=== PATIENT | female | born 1975 | race Caucasian/White ===

== ENCOUNTER 2019-04-02 09:17 | Outpatient (RCR) | payer SELFPAY ==
--- NOTE | 2019-06-19 11:40 | HP.PT.NRP ---
HP - Discharge Summary (1) - Patient Information SIRENA FLORES was seen in my office for initial evaluation on . The following Plan of Care was established for this patient: This patient was last seen in our office . Pertinent comments regarding their Physical therapy will appear below: self referred dry needling- d/c At this point I will be discontinuing this patient from physical therapy. I would be happy to see this patient again in the future if found appropriate by the physician. Thank you! RASHID AbreuT
== END 2019-04-02 19:00 | disposition home or self-care (01) ==
LOC: PT 09:17
PROVIDERS: Family Provider Family Medicine; PCP Family Medicine
DX: R69 Illness, unspecified (principal)

== ENCOUNTER → 2021-12-29 | Outpatient (CLI) | payer OTHER, SELFPAY ==
[2021-12-29 12:35] LABS: Absolute Lymphocyte Count 1.87 X10^3/uL (0.83-4.51); Basophil# 0.04 X10^3/uL; Basophil% 0.5 % (0-1); Eosinophil# 0.15 X10^3/uL; Eosinophils% 1.7 % (0-5); Hematocrit 42.2 % (37-47); Hemoglobin 13.5 g/dL (12.0-15.0); Lymphocyte # 1.87 X10^3/ul (0.83-4.51); Lymphocyte % 21.5 % (19-41); Mean Corpuscular Hgb 27.6 pg (27.0-32.0); Mean Corpuscular Volume 86.1 fL (81-99); Mean Platelet Vol. 9.6 fl (6.2-12.0); Monocyte# 0.64 X10^3/uL; Monocyte% 7.4 % (0-10); NRBC Flagged by Analyzer 0 % (0-5); Neutrophil # 5.95 X10^3/uL (2.7-7.7); Neutrophil % 68.3 % (47-70); Platelet Count 346 K/mm3 (150-450); White Blood Count 8.7 K/mm3 (4.4-11.0)
[2022-01-04 11:07] LABS: Alternaria tenuis <0.10 kU/L (Class 0); Ash, White <0.10 kU/L (Class 0); Aspergillus fumigatus <0.10 kU/L (Class 0); Bermuda Grass <0.10 kU/L (Class 0); Birch <0.10 kU/L (Class 0); Black Walnut <0.10 kU/L (Class 0); Cat Hair / Dander,Stand <0.10 kU/L (Class 0); Cedar, Mountain <0.10 kU/L (Class 0); Cladosporium herbarum <0.10 kU/L (Class 0); Cockroach, American <0.10 kU/L (Class 0); Cottonwood <0.10 kU/L (Class 0); D farinae Mite <0.10 kU/L (Class 0); D pteronyssinus <0.10 kU/L (Class 0); Dog Epithelia <0.10 kU/L (Class 0); Elm, American White <0.10 kU/L (Class 0); Immunoglobulin E 16 IU/mL (6-495); Maple/Box Elder <0.10 kU/L (Class 0); Mulberry, White <0.10 kU/L (Class 0); Oak, White <0.10 kU/L (Class 0); Pecan <0.10 kU/L (Class 0); Penicillium Notatum <0.10 kU/L (Class 0); Pigweed, Rough <0.10 kU/L (Class 0); Ragweed, Short/Common <0.10 kU/L (Class 0); Russian Thistle <0.10 kU/L (Class 0); Sheep Sorrel <0.10 kU/L (Class 0); Sycamore, American <0.10 kU/L (Class 0); Timothy Grass <0.10 kU/L (Class 0)
[2022-01-05 17:01] LABS: Mouse Urine <0.10 kU/L (Class 0)
== END | disposition home or self-care (01) ==
PROVIDERS: PCP Family Medicine; Referring Provider Internal Medicine Critical Care Medicine; Visit Provider Internal Medicine Critical Care Medicine
DX: J45.909 Unspecified asthma, uncomplicated (principal)
CPT/HCPCS: 36415; 82785; 85025; 86003

== ENCOUNTER → 2022-01-15 | Outpatient (CLI) | payer OTHER, SELFPAY ==
--- NOTE | 2022-01-16 08:01 | PFT ---
INTRODUCTION: The patient is a 46-year-old female that presents for pulmonary function studies secondary to a diagnosis of asthma. Respiratory therapy reported good patient effort. Bronchodilators were used during testing. INTERPRETATION: Forced expiration spirometry demonstrates no evidence of a large airways obstructive ventilatory defect. There was a significant response to aerosolized bronchodilators noted. Spirograms are of good quality and plateau normally. Body plethysmography was performed and revealed a decreased TLC to 4.98 L, 78% of predicted, indicative of a mild restrictive ventilatory impairment. Diffusing capacity by single breath CO is mildly reduced as well. IMPRESSION: Stigmata of small airways disease with significant bronchodilator response, along with mild restrictive ventilatory impairment with symmetric reduction in diffusing capacity.
== END | disposition home or self-care (01) ==
LOC: PSN 09:28
PROVIDERS: PCP Family Medicine; Referring Provider Internal Medicine Critical Care Medicine; Visit Provider Internal Medicine Critical Care Medicine
DX: J45.909 Unspecified asthma, uncomplicated (principal)
CPT/HCPCS: 94060; 94726; 94729

== ENCOUNTER → 2022-01-26 | Outpatient (CLI) | payer OTHER, SELFPAY ==
[2022-01-26 11:48] VITALS: PULSE 101; PULSE 107; PULSE 108; PULSE 110; PULSE 77; PULSE 82; O2SAT 95; O2SAT 96; O2SAT 97; O2SAT 98; O2SAT 99
--- NOTE | 2022-01-27 11:55 | PCM.PSN.6M ---
PSN 6 Minute Walk Test 6 Minute Walk Test 6 Minute Walk Test: 6 Minute Walk Test PSN:6-Minute Walk Test Start: 01/26/22 11:47 Freq: Status: Active Protocol: [id number] Document 01/26/22 11:48 FR (Rec: 01/26/22 11:54 FR [id number]) 6 Minute Walk Test Date Performed 01/26/22 Time Performed 11:00 Height 5 ft 11 in Weight: 315 lb Weight in Pounds 315.[address]: Assistive device used: None Pre-test Oxygen Delivery Method Room Air Pulse Ox (%) 99 Pulse Rate (60-100 beats/min) 77 Dyspnea Cristela Scale (0-10) 1 Exertion Cristela Scale (6-20) 7 1st minute Oxygen Delivery Method Room Air Pulse Ox (%) 99 Pulse Rate (60-100 beats/min) 77 2nd minute Oxygen Delivery Method Room Air Pulse Ox (%) 97 Pulse Rate (60-100 beats/min) 101 H 3rd minute Oxygen Delivery Method Room Air Pulse Ox (%) 95 Pulse Rate (60-100 beats/min) 107 H 4th minute Oxygen Delivery Method Room Air Pulse Ox (%) 96 Pulse Rate (60-100 beats/min) 107 H 5th minute Oxygen Delivery Method Room Air Pulse Ox (%) 95 Pulse Rate (60-100 beats/min) 108 H 6th minute Oxygen Delivery Method Room Air Pulse Ox (%) 96 Pulse Rate (60-100 beats/min) 110 H Dyspnea Cristela Scale (0-10) 3 Exertion Cristela Scale (6-20) 9 Post-test Oxygen Delivery Method Room Air Pulse Ox (%) 98 Pulse Rate (60-100 beats/min) 82 Full Laps Walked 25 Partial Lap, Number of Tiles Walked 13 Total Distance Walked (ft) 1488 Interpretation Interpretation: The patient ambulated 1488 feet over the course of 6 minutes beginning on room air without assistive devices. Pretesting oxygen saturation was noted to be 99% on room air. With ambulation, the sudeep oxygen saturation was 95%. There was no significant exertional oxygen desaturation. Recommendations Recommendations: There is no indication for the use of supplemental oxygen at this time.
== END | disposition home or self-care (01) ==
PROVIDERS: PCP Family Medicine; Referring Provider Internal Medicine Critical Care Medicine; Visit Provider Internal Medicine Critical Care Medicine
DX: J45.909 Unspecified asthma, uncomplicated (principal)
CPT/HCPCS: 94618

== ENCOUNTER 2024-01-19 08:13 | Outpatient (RCR) | payer OTHER, SELFPAY | END 2024-01-19 19:00 | disposition home or self-care (01) | LOC: PT 08:13 | PROVIDERS: PCP Family Medicine | DX: R69 Illness, unspecified (principal) ==

== ENCOUNTER → 2025-01-22 | Outpatient (CLI) | payer OTHER, SELFPAY ==
--- NOTE | 2025-01-22 06:27 | CT_ITS ---
PROCEDURE: SOFT TISSUE NECK W/WO CONTRAST 01/22/2025 REASON FOR EXAM: ENLARGED THYROID TECHNIQUE: SOFT TISSUE NECK W/WO CONTRAST CONTRAST: Isovue 370 VOLUME: 75 mL One or more dose reduction techniques were used (e.g., Automated exposure control, adjustment of the mA and/or kV according to patient size, use of iterative reconstruction technique). RADIATION DOSE SUMMARY: CTDlvol: 9.9 mGy DLP: 951 mGycm COMPARISON: None FINDINGS: Thyroid: There is marked enlargement of the thyroid, which is heterogeneous in appearance with central hypodensity. The thyroid measures 8.2 x 9.2 x 8.9 cm (AP x TR x CC). There is a rim calcified nodule at the upper pole of the right thyroid lobe measuring 2.9 x 3.2 x 2.8 cm. Aerodigestive tract: Mass effect from the thyroid result in narrowing of the upper trachea to 3 mm in AP diameter at the level of C5-6. Additionally, there is mass effect on the esophagus in this location. Evaluation of the larynx is limited due to motion. Salivary glands: Unremarkable Lymph nodes: There are scattered tiny cervical chain nodes. No significant lymphadenopathy. Vasculature: Carotid arteries and internal jugular veins are unremarkable. Orbits: Unremarkable Paranasal sinuses and mastoids: Predominantly clear Lung apices: Clear Upper mediastinum: Unremarkable Bones: Degenerate changes of the spine at C5-6. CT/Soft Tissue Neck W/WO Contrast IMPRESSION: 1. 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 There is at least one discrete thyroid nodule at the right lobe upper pole tiffanie uring 3.2 cm and with peripheral calcification. Consider ultrasound and ENT referral if not previously performed. 2. No significant lymphadenopathy. Reading Location: [id number]
--- OUTSIDE RECORDS SUMMARY | 2025-01-22 06:32 | XMS RPT_ITS | CCD ---
Author Organization [facility] Team Providers Care Back Shoe Worker Name Role Phone Dr. Reagan Stovall Primary Care Provider Dr. Reagan Stovall Referring Provider Dr. Jose Stovall Attending Provider Dr. Jose Stovall Referring Provider Dr. Jose Stovall Other Provider Reagan Stovall MD Unavailable [facility] [place], Pulmonary Unavailable Woodrow FIRE ADJUSTER, Kellen Unavailable Josiah KEEN, Hannah Up Unavailable Griffin FIRE ADJUSTER, Carmencita Booker Unavailable Unavailable Josef FIRE ADJUSTER, Maribel Unavailable Unavailable Alexis KEEN, Margarita Gupta Unavailable Jennifer Shaw Unavailable Unavailable Mariana LEES, Margarita Pace Unavailable Unavaila ble Vineet FIRE ADJUSTER, Frantz Unavailable Unavailable Carlton LEES, Delmi Unavailable Magdaleno FIRE ADJUSTER, Tea Unavailable Unavailable Man KEEN, Alexia J Unavailable Kathy Helms Unavailable Daphne COST CONTROL SUPERVISOR, Carmela Unavailable Unavailable Deshawn FIRE ADJUSTER, Sharon M Unavailable Unavailab le Luxora FIRE ADJUSTER, Nathalia Unavailable Unavailab le Vess FIRE ADJUSTER, Lillie L Unavailable Unavailable Wengerd FIRE ADJUSTER, Andreea Unavailable Unavailabl jhony Arrington FIRE ADJUSTER, Lilo Holley Unavailable Unavaila ble Unavailable Unavailable Fortunato FIRE ADJUSTER, Arline Unavailable Unavailable Cory FRIAS, Lakeisha Unavailable Unavailable REAGAN STOVALL Admitting Unavailable REAGAN STOVALL Primary Care Unavailable REAGAN STOVALL Consulting Unavailable REAGAN STOVALL Attending Unavailable PROVIDER, UNKNOWN Consulting Unavailable PROVIDER, UNKNOWN Consulting Unavailable PROVIDER, UNKNOWN Consulting Unavailable [facility] Unavailable Reagan Stovall Primary Care Unavailable Fernando Hill Referring Unavailable Fernando Hill Attending Unavailable Allergies Allergy Classification Reported Allergen(s) Allergy Type Date of Onset Reaction(s) Facility Mefloquine (4 sources) Mefloquine Drug Allergy [place] [place] Quinolones (antibiotic) (4 sources) Ciprofloxacin Drug Allergy [place] [place]. (20 sources) Ciprofloxacin Drug Allergy 12-29-2021 Itching [place] [place] (20 sources) Mefloquine Drug Allergy 12-29-2021 unknown [place] [place] (1 source) Ciprofloxacin Drug Allergy 02-17-2022 [facility] Repository (1 source) Mefloquine Drug Allergy 02-17-2022 [facility] Repository Medications Current Medications Medication Drug Class(es) Dates Sig (Normalized) Sig (Original) [id number] 200 actuat albuterol 0.09 mg/actuat metered dose inhaler (20 sources) beta2-Adrenergic Agonist Start: 05-30-2024 Start: 05-30-2024 take 2 puff(s) by in halation every six hours as needed albuterol sulfate HFA 90 mcg/actuation aerosol inhaler ; 2 (two) Puff q 6hrs prn sob for 0 days Quantity: 1 {Each} Refills: 3 Ordered: 30-May-2024 MD Reagan Stovall Start: 30-May-2024 Comments: Mail order. inhaler Start: 12-28-2021 take 1 puff(s) by in halation every six hours Albuterol Sulfate Active 2 PUFF INHALATION EVERY 6 HOURS December 28, 2021 12:00am Start: 02-25-2021 End: 06-07-2022 take 2 puff(s) by inhalation every six hours as needed Albuterol Sulfate HFA 108 (90 Base) MCG/ACT Inhalation Aerosol Solution ; 2 (two) Puff q 6hrs prn sob for 0 days Quantity: 1 {Inhaler} Refills: 2 Ordered: 07-Jun-2022 MD Reagan Stovall Start: 25-Feb-2021 End: 07-Jun-2022 Status: Inactive Comment on above: Mail order. inhaler hydrOXYzine hydrochloride 25 mg oral tablet (20 sources) Antihistamine Start: 06-13-2023 Start: 12-28-2021 take 25 mg by mouth every six hours Hydroxyzine Hcl Active 25 MG PO EVERY 6 HOURS December 28, 2021 12:00am Comment on above: Mail order. lisinopril 20 mg oral tablet (20 sources) Angiotensin Converting Enzyme Inhibitor Start: 05-30-2024 Start: 02-27-2024 lisinopriL 10 mg tablet ; 1 Tablet daily for 0 days Quantity: 90 {Tablet} Refills: 3 Ordered: 27-Feb-2024 MD Reagan Stovall Start: 27-Feb-2024 Comments: Mail order. Start: 12-13-2022 take 1 tablet by batool once daily Lisinopril 10 MG Oral Tablet ; 1 Tablet daily for 0 days Quantity: 90 {Tablet} Refills: 3 Ordered: 13-Dec-2022 MD Reagan Stovall Start: 13-Dec-2022 Comments: Mail order. Start: 12-28-2021 take 10 mg by mouth once daily Lisinopril Active 10 MG PO DAILY December 28, 2021 12:00am Comment on above: Mail order. magnesium oxide 400 mg oral tablet (20 sources) Comment on above: Medication taken as needed. omeprazole 20 mg delayed rel ease oral capsule (20 sources) Proton Pump Inhibitor Start: 05-30-2024 Start: 11-30-2023 omeprazole 20 mg capsule,delayed release ; 1 Capsule daily for 0 days Quantity: 90 {Capsule} Refills: 3 Ordered: 30-Nov-2023 MD Wale Holloway Start: 30-Nov-2023 Comments: Mail order. Start: 12-13-2022 take 1 capsule by mo [facility] once daily Omeprazole 20 MG Oral Capsule Delayed Release ; 1 Capsule daily for 0 days Quantity: 90 {Capsule} Refills: 3 Ordered: 13-Dec-2022 MD Reagan Stovall Start: 13-Dec-2022 Comments: Mail order. Start: 12-28-2021 take 20 mg by mouth once daily Omeprazole Active 20 MG PO DAILY December 28, 2021 12:00am Comment on above: Mail order. rosuvastatin calcium 10 mg o ral tablet (20 sources) HMG-CoA Reductase Inhibitor Start: 11-05-2024 Start: 09-03-2024 rosuvastatin 1 0 mg tablet ; 1 (one) Tablet qhs for 0 days Quantity: 90 {Tablet} Refills: 0 Ordered: 03-Sep-2024 MD Reagan Stovall Start: 03-Sep-2024 Comments: Mail order. Start: 05-30-2024 rosuvastatin 1 0 mg tablet ; 1 (one) Tablet qhs for 0 days Quantity: 90 {Tablet} Refills: 0 Ordered: 30-May-2024 MD Reagan Stovall Start: 30-May-2024 Comments: Mail order. Start: 02-27-2024 rosuvastatin 1 0 mg tablet ; 1 (one) Tablet qhs for 0 days Quantity: 90 {Tablet} Refills: 0 Ordered: 27-Feb-2024 MD Reagan Stovall Start: 27-Feb-2024 Comments: Mail order. Start: 11-30-2023 rosuvastatin 1 0 mg tablet ; 1 (one) Tablet qhs for 0 days Quantity: 90 {Tablet} Refills: 0 Ordered: 30-Nov-2023 MD Wale Holloway Start: 30-Nov-2023 Comments: Mail order. Start: 05-05-2023 rosuvastatin 1 0 mg tablet ; 1 (one) Tablet qhs for 0 days Quantity: 90 {Tablet} Refills: 0 Ordered: 05-May-2023 MD Reagan Stovall Start: 05-May-2023 Comments: Mail order. Start: 12-28-2021 take 10 mg by mouth once daily Rosuvastatin Active 10 MG PO DAILY December 28, 2021 12:00am Comment on above: Mail order. Completed/Discontinued Medications Medication Drug Class(es) Dates Sig (Normalized) Sig (Original) amoxicillin 500 mg oral tablet (20 sources) Penicillin-class Antibacterial Start: 09-01-2018 End: 09-11-2018 atovaquone 250 mg / proguanil hydrochloride 100 mg oral tablet (20 sources) Antimalarial, Antiprotozoal Start: 04-09-2013 End: 04-22-2014 Start: 04-09-2013 End: 04-22-2014 take 1 tablet by mouth once daily MALARONE, 250-100MG (Oral Tablet) ; 1 Tablet Tablet qd for 0 days Quantity: 20 {Tablet} Refills: 0 Ordered: 22-Apr-2014 MARY Tai Edyta Veliz Start: 09-Apr-2013 End: 22-Apr-2014 Status: Inactive Comments: start 2 days prior to trip and continue for 7 days after Comment on above: start 2 days prior t o trip and continue for 7 days after azelastine hydrochloride 0.1 37 mg/actuat / fluticasone propionate 0.05 mg/actuat metered dose nasal spray (20 sources) Corticosteroid, Histamine-1 Receptor Antagonist Azithromycin (20 sources) Macrolide Antimicrobial Start: 10-30-2018 End: 11-13-2018 Start: 10-30-2018 End: 11-13-2018 Zithromax Z-Bubba 250 MG Oral Tablet ; 2 (two) Tablet today and then 1 tablet daily x 4 days for 0 days Quantity: 1 {Package} Refills: 0 Ordered: 13-Nov-2018 MARY Whaley Start: 30-Oct-2018 End: 13-Nov-2018 Status: Inactive chlorthalidone 25 mg oral ta blet (17 sources) Thiazide-like Diuretic Start: 07-09-2024 End: 07-18-2024 chondroitin sulfates 400 mg / glucosamine hydrochloride 500 mg oral capsule (20 sources) dexamethasone 1 mg/ml / tobramycin 3 mg/ml ophthalmic suspension (20 sources) Aminoglycoside Antibacterial, Corticosteroid Start: 05-07-2010 End: 05-09-2010 Start: 05-07-2010 End: 05-09-2010 take 1-2 drop(s) into the eye(s) every two hours TOBRADEX, 0.3-0.1% (Ophthalmic Suspension) ; 1-2 Drop(s) every two hours for 2 days Quantity: 5 {Milliliter} Refills: 0 Ordered: 07-May-2010 OSMANI Espinoza Start: 07-May-2010 End: 09-May-2010 Status: Inactive doxycycline hyclate 100 mg oral tablet (20 sources) Tetracycline-class Drug Start: 08-31-2016 End: 11-02-2016 Comment on above: Start 1-2 days prior to travel and continue for 4 weeks afterward fluticasone propionate 0.05 mg/actuat metered dose nasal spray (20 sources) Corticosteroid Start: 11-13-2018 End: 12-03-2021 lovastatin 20 mg oral tablet (20 sources) HMG-CoA Reductase Inhibitor Start: 11-19-2019 End: 11-24-2020 meloxicam 15 mg oral tablet (20 sources) Nonsteroidal Anti-inflammatory Drug Start: 05-30-2024 End: 12-13-2024 Comment on above: Mail order. naproxen 500 mg oral tablet (20 sources) Nonsteroidal Anti-inflammatory Drug Start: 05-05-2023 End: 05-30-2024 Start: 12-28-2021 take 1 tablet by batool th twice daily Naproxen (Naprosyn) 500 mg tablet Active 500 MG PO TWICE A DAY December 28, 2021 12:00am Start: 10-21-2014 End: 10-03-2015 Comment on above: Mail order. nitrofurantoin, macrocrystal s 25 mg / nitrofurantoin, monohydrate 75 mg oral capsule (20 sources) Nitrofuran Antibacterial Start: 06-29-2010 End: 07-06-2010 sulfamethoxazole 800 mg / trimethoprim 160 mg oral tablet (20 sources) Dihydrofolate Reductase Inhibitor Antibacterial, Sulfonamide Antimicrobial Start: 07-11-2013 End: 07-14-2013 Start: 07-11-2013 End: 07-14-2013 take 1 tablet by mouth twice daily BACTRIM DS, 800-160MG (Oral Tablet) ; 1 Tab two times daily for 3 days Quantity: 6 {Tube} Refills: 0 Ordered: 11-Jul-2013 MD Reagan Stovall Start: 11-Jul-2013 End: 14-Jul-2013 Status: Inactive Comments: take at onset of traveler's diarrhea Comment on above: take at onset of tra veler's diarrhea Problems Active Problems Problem Classification Problem Date Documented Date Episodic/Chronic Abdominal pain (20 sources) Abdominal pain, generalized; Translations: [Abdominal pain] 10-03-2015 Episodic Administrative/socia l admission (20 sources) Stress at work; Translations: [Other physical and mental strain related to work] 06-13-2023 Episodic Allergic reactions (20 sources) Contact dermatitis and other eczema, unspecified cause; Translations: [Environmental allergy] 10-03-2015 Episodic Anxiety disorders (20 sources) Anxiety; Translations: [Other specified anxiety disorders] 06-13-2023 Chronic Asthma (20 sources) Asthma; Translations: [Unspecified asthma, uncomplicated] Chronic Chronic obstructive pulmonary disease and bronchiectasis (20 sources) Bronchitis; Translations: [Bronchitis, not specified as acute or chronic] 09-01-2018 Episodic Disorders of lipid metabolism (20 sources) Hyperlipidemia; Translations: [Hyperlipidemia, unspecified] 10-11-2023 Chronic Esophageal disorders (20 sources) Gastroesophageal reflux disease; Translations: [Gastro-esophageal reflux disease without esophagitis] 06-13-2023 Chronic Essential hypertension (20 sources) Benign essential hypertension; Translations: [Essential (primary) hypertension] 05-23-2017 Chronic Genitourinary symptoms and ill-defined conditions (20 sources) Dysuria; Translations: [Dysuria] 06-12-2012 Episodic Immunizations and screening for infectious disease (20 sources) Need for prophylactic vaccination and inoculation against influenza; Translations: [Needs influenza immunization] 10-03-2015 Episodic Inflammation; infection of eye (except that caused by tuberculosis or sexually transmitteddisease) (20 sources) Acute conjunctivitis; Translations: [Unspecified acute conjunctivitis, unspecified eye] 10-03-2015 Episodic Lymphadenitis (20 sources) Reactive lymphadenopathy; Translations: [Enlarged lymph nodes, unspecified] 10-06-2016 Episodic Malaise and fatigue (20 sources) Fatigue; Translations: [Other fatigue] 05-10-2016 Episodic Osteoarthritis (20 sources) Degenerative joint disease involving multiple joints; Translations: [Polyosteoarthritis, unspecified] 06-13-2023 Chronic Other aftercare (20 sources) Long-term (current) use of other medications 10-03-2015 Episodic Other connective tissue disease (20 sources) Pain in right lower limb; Translations: [Pain in right leg] 11-18-2014 Episodic Other endocrine disorders (20 sources) Polycystic ovary; Translations: [Polycystic ovarian syndrome] 05-21-2019 Chronic Other non-traumatic joint disorders (20 sources) Joint pain; Translations: [Pain in unspecified joint] 12-13-2024 Episodic Other nutritional; endocrine; and metabolic disorders (2 sources) Morbid obesity; Translations: [Morbid (severe) obesity due to excess calories] Chronic Other nutritional; endocrine; and metabolic disorders (2 sources) Morbid (severe) obesity due to excess calories; Translations: [Morbid obesity] Chronic Other nutritional; endocrine; and metabolic disorders (20 sources) Body mass index 40+ - severely obese; Translations: [Body mass index (BMI) 40.0-44.9, adult] 05-23-2017 Chronic Other nutritional; endocrine; and metabolic disorders (20 sources) Obesity; Translations: [Obesity, unspecified] 06-13-2023 Chronic Other nutritional; endocrine; and metabolic disorders (20 sources) Obesity caused by energy imbalance; Translations: [Morbid (severe) obesity due to excess calories] 12-13-2024 Chronic Other skin disorders (20 sources) Unspecified hypertrophic and atrophic conditions of skin 10-03-2015 Episodic Other upper respiratory disease (20 sources) Allergic rhinitis due to other allergen 10-03-2015 Chronic Other upper respiratory disease (20 sources) Eosinophilic nonallergic rhinitis; Translations: [Chronic rhinitis] 06-13-2023 Chronic Other upper respiratory infections (20 sources) Acute sinusitis; Translations: [Acute sinusitis, unspecified] 10-30-2018 Episodic Poisoning by nonmedicinal substances (20 sources) Snake bite; Translations: [Toxic effect of unspecified snake venom, accidental (unintentional), initial encounter] 06-23-2011 Episodic Residual codes; unclassified (20 sources) Sleep apnea; Translations: [Sleep apnea, unspecified] 06-13-2023 Chronic Residual codes; unclassified (20 sources) Daytime somnolence; Translations: [Other hypersomnia] 05-11-2016 Chronic Screening and history of mental health and substance abuse codes (20 sources) Patient encounter status; Translations: [Encounter for screening for malignant neoplasm of colon] 10-25-2022 Episodic Thyroid disorders (20 sources) Goiter; Translations: [Nontoxic goiter, unspecified] Onset: 01-14-2025 06-13-2023 Chronic Unclassified (19 sources) Number of Pregnancies 12-03-2021 Comment on above: 0. Unclassified (19 sources) Follow Up for Multiple Chronic Conditions - The patient is here for follow-up of a-fib, arthritis, asthma, GERD, hyperlipidemia, hypertension and obesity. The patient always takes the prescribed medications. No side effects noted (needs refills). The patient engages in regular exercise program 3-5 times per week (walks). The patient's out of office blood pressure checks occur occasionally and dietary compliance is fairly good usually adhering to recommendations. The patient states that there is no recent angina or dyspnea, weight has increased (up 2 pounds) and headaches are rarely noted. 06-13-2023 Unclassified (19 sources) Follow Up for Multiple Chronic Conditions - The patient is here for follow-up of arthritis, asthma, GERD, hyperlipidemia, hypertension and obesity. The patient always takes the prescribed medications. No side effects noted (does not need refills.). The patient engages in regular exercise program 3-5 times per week (walks and yoga). The patient's out of office blood pressure checks occur occasionally and dietary compliance is fairly good usually adhering to recommendations. The patient states that breathing effort is stable, there is no recent angina or dyspnea, weight is unchanged and headaches are rarely noted. Note for Multiple chronic conditions follow-up": reviewed by [facility] 06-07-2022 Unclassified (19 sources) Follow Up for Multiple Chronic Conditions - The patient is here for follow-up of arthritis, hyperlipidemia, hypertension and obesity. The patient always takes the prescribed medications. No side effects noted (does not need refills). The patient engages in regular exercise program 3-5 times per week (walks). The patient's out of office blood pressure checks occur occasionally. The patient states that there is no recent angina or dyspnea, weight has decreased (down 7 pounds) and headaches are rarely noted. Note for Multiple chronic conditions follow-up": reviewed by [facility] 05-25-2021 Unclassified (19 sources) Follow up for multiple chronic conditions - The patient is here for follow-up of arthritis, hyperlipidemia, hypertension and obesity. The patient always takes the prescribed medications. No side effects noted (no refills needed today). The patient engages in regular exercise program 3-5 times per week (walking for about 30-60 min twice daily). The patient's out of office blood pressure checks occur rarely and dietary compliance is fair often eating foods not normally recommended. The patient states that breathing effort is stable (states that she will have intermittent SOB at times, relieved with albuterol inhaler), weight has increased (12 lbs since CASSANDRA) and headaches are rarely noted. Note for Multiple chronic conditions follow-up": Reviewed by Hannah Rahman PA-C. 06-16-2020 Unclassified (19 sources) Follow-up for multiple chronic conditions (RAH) - The patient is here for follow-up of hypertension, hyperlipidemia and arthritis. The patient always takes the prescribed medications. No side effects noted (no refills needed today). The patient engages in regular exercise program 3-5 times per week (walking daily for about 30 minutes). The patient's out of office blood pressure checks occur rarely and dietary compliance is fairly good usually adhering to recommendations (finished whole 30 diet). The patient states that there is no recent angina or dyspnea, weight has decreased (4lbs since CASSANDRA) and they do not have headaches. Note for "Multiple chronic conditions follow-up": reviewed by [facility] 05-21-2019 Unclassified (19 sources) Follow Up for Multiple Chronic Conditions - The patient is here for follow-up of hyperlipidemia, hypertension and other condition(s) (General Osteoarthritis; Allergies). The patient always takes the prescribed medications. No side effects noted (However she does have hx of arthritis and will seem to have flare ups of muscle and joint pain. She is not sure if side effect of Lovastatin or just related to her arthritis.). The patient engages in regular exercise program 3-5 times per week (Walks for about an houjr a day.). The patient's out of office blood pressure checks occur frequently (Average out of office 117/72-82.) and dietary compliance is fairly good usually adhering to recommendations. The patient states that there is no recent angina or dyspnea, there are no vision changes or weakness, pain is generally stable (but have flare ups on occassion.) and weight has increased (up 1# from last visit.). The patient states that the disease has no overall impact. Note for Multiple chronic conditions follow-up": Labs done and ready to review. reviewed by [facility] 11-21-2017 Unclassified (19 sources) Follow Up for Multiple Chronic Conditions - The patient is here for follow-up of hypertension, hyperlipidemia, arthritis (General osteoarthritis of multiple joints.) and other condition(s) (Non allergic eosinophilic rhinitis). The patient always takes the prescribed medications. No side effects noted. The patient engages in regular exercise program 3-5 times per week (Walks daily- about 1 mile a day.). The patient's dietary compliance is fairly good usually adhering to recommendations. The patient states that there is no recent angina or dyspnea, there are no vision changes or weakness, weight has decreased (Down about 1# from last routine visit.), they are still having trouble sleeping (hard to adjust to CPAP machine. ) and headaches have been noticed occasionally (Pt experiencing headaches since using CPAP machine She just recently started using this.). The patient states that the disease has no overall impact. Note for Multiple chronic conditions follow-up": Labs done and ready to review. Pt states has not had physical in couple years. Goes through [facility] for these. Encouraged her to make an appt. 11-08-2016 Unclassified (19 sources) Cold Symptoms - Symptoms include ear fullness (right side), sore throat and hoarseness, but do not include sneezing, nasal congestion, runny nose, dry cough, productive cough, fever, chills, general malaise or headache. The onset was sudden 3 day(s) ago. The symptoms occur constantly. The patient describes this as moderate in severity and worsening. The patient is not currently being treated for this problem. Note for Upper respiratory infection": reviewed by [facility] 10-06-2016 Unclassified (8 sources) Fatigue - The onset of the fatigue has been gradual and has been occurring in an intermittent pattern for 6 months. The course has been recurrent. Note for "Fatigue": Occurs during the day and pt just does not feel like doing anything. Does not interfere with job but hard to get motivated to get things done at home. Will get periods of where she feels flushed. Still on Periods and irregular but states they have always been irregular. Pt has PCO. She snores. Excessively sleepy post noon. 05-10-2016 Unclassified (8 sources) [ADDITIONAL REASON] Follow Up for Multiple Chronic Conditions - The patient is here for follow-up of hypertension and hyperlipidemia. The patient always takes the prescribed medications. No side effects noted. The patient has an active lifestyle but no regular exercise program. The patient's out of office blood pressure checks occur occasionally (Average is about 118/82.) and dietary compliance is fairly good usually adhering to recommendations. The patient states that there is no recent angina or dyspnea, there are no vision changes or weakness, weight has increased (up 4# from last visit.) and they do not have headaches. The patient states that the disease has no overall impact. Note for "Multiple chronic conditions follow-up": Labs done and ready to review. reviewed by [facility] 05-10-2016 Unclassified (19 sources) Follow Up for Multiple Chronic Conditions - The patient is here for follow-up of hypertension, hyperlipidemia and other condition(s) (DJD Multiple Joints.). The patient always takes the prescribed medications. No side effects noted. The patient has low activity level and no regular exercise program. The patient states that there is no recent angina or dyspnea, there are no vision changes or weakness, pain is worse (Using the Naprosyn PRN. Pain seems to move around but worse in her shoulders and left ankle. Pain is sporadic.), weight has increased (up about 1# from last visit.) and they do not have headaches. Note for Multiple chronic conditions follow-up": Labs done and ready to review. Does not check out of office BP's. DOes not see any specialists. reviewed by [facility] 11-03-2015 Unclassified (19 sources) Follow Up for Multiple Chronic Conditions - The patient is here for follow-up of hypertension, hyperlipidemia and other condition(s) (DJD of Multiple Sites). The patient always takes the prescribed medications. No side effects noted. The patient engages in regular exercise program 1-3 times per week. The patient's dietary compliance is good with close adherance to recommendations. The patient states that there is no recent angina or dyspnea, there are no vision changes or weakness, pain is generally stable (Does home therapy for left shoulder. Uses Naprosyn prn but has not needed any lately. ALso works out at gym twice a week.), weight is unchanged and they do not have headaches. The patient states that the disease has no overall impact (Pt says is doing well. Labs done and ready to review. Would like flu vaccine today.). Note for "Multiple chronic conditions follow-up": Does not take out office BP's. reviewed by [facility] 04-28-2015 Unclassified (19 sources) [facility] Routine Follow up - The patient is here for follow-up of hypertension (Last rtn visit 04/22/14. Lipid and CMP 10/14/14.), hyperlipidemia and DJD. The patient always takes the prescribed medications. No side effects noted. The patient engages in regular program 1-3 time(s) per week. The patient's out of office blood pressure checks occur occasionally and dietary compliance is fairly good usually adhering to recommendations. The patient states that breathing effort is stable, there is no recent angina or dyspnea, there are no vision changes or weakness, pain is worse (arthritis pain is flaring up), weight has decreased (4#), mood is unchanged and they do not have headaches. Note for Routine chronic follow-up": Patient complains of watery eyes. She has been allergy tested and was negative but does get sx each spring. 10-21-2014 Unclassified (19 sources) Follow Up for Multiple Chronic Conditions - The patient is here for follow-up of hypertension, hyperlipidemia and arthritis. The patient always takes the prescribed medications. No side effects noted (Does not need refills.). The patient engages in regular exercise program 3-5 times per week (Walking and strengthening exercises.). The patient's out of office blood pressure checks occur rarely and dietary compliance is fairly good usually adhering to recommendations. The patient states that weight has increased (Up 17 pounds.). Note for "Multiple chronic conditions follow-up": reviewed by [facility] 04-22-2014 Unclassified (8 sources) Cold Symptoms - Symptoms include nasal congestion, runny nose, scratchy throat, dry cough (and little SOB at times when she goes out in cold. Pulse ox today 98%. ) and headache, but do not include fever. The onset was gradual 1 week(s) ago. The patient describes this as unchanged. The patient is not currently being treated for this problem. Risk factors do not include smoking. Note for Upper respiratory infection": Lots of people she works with have similiar symptoms. reviewed by [facility] 10-15-2013 Unclassified (8 sources) [ADDITIONAL REASON] Follow Up for Multiple Chronic Conditions - The patient is here for follow-up of hypertension, hyperlipidemia and other condition(s) (DJD multiple joints.). The patient always takes the prescribed medications. No side effects noted. The patient engages in regular exercise program 3-5 times per week. The patient's out of office blood pressure checks occur rarely and dietary compliance is good with close adherance to recommendations. The patient states that there is no recent angina or dyspnea, there are no vision changes or weakness, weight has decreased (Down 2# from last visit.) and they do not have headaches. Note for Multiple chronic conditions follow-up": Pt had labs done and ready to review. UTD with TDAP. reviewed by [facility] 10-15-2013 Unclassified (3 sources) Cold Symptoms - Symptoms include nasal congestion, non-purulent sputum and sore throat (and cough at first but none now.), but do not include chills or general malaise. The onset was gradual 2 week(s) ago. The patient describes this as unchanged. Current treatment includes none (Pt states this seems to hit at the same time every year. Hss even done allergy testing.). Risk factors do not include smoking. Medical history includes recurrent sinusitis. Note for "Upper respiratory infection": reviewed by B 04-09-2013 Unclassified (3 sources) [ADDITIONAL REASON] Follow Up for Multiple Chronic Conditions - The patient is here for follow-up of hypertension, hyperlipidemia and other condition(s) (DJD of multiple sites.). The patient always takes the prescribed medications. No side effects noted. The patient engages in regular exercise program 3-5 times per week (Walks about 6days a week and will walk couple miles each day.). The patient's out of office blood pressure checks occur rarely and dietary compliance is good with close adherance to recommendations (Is working with Dr. Nazario at [facility]. Pt is done 9# from last visit.). The patient states that there is no recent angina or dyspnea, there are no vision changes or weakness and they do not have headaches. Note for Multiple chronic conditions follow-up": Pt is feeling pretty well except for some cold symptoms. Labs doneand ready to review. Declines flu shot at this time. ( also, she is going on a trop to [facility] and needed malaria prophylaxsis. Has had Lariam before but got sick on it ) 04-09-2013 Unclassified (19 sources) Follow Up for Multiple Chronic Conditions - The patient is here for follow-up of hypertension, hyperlipidemia and other condition(s) (DJD). The patient always takes the prescribed medications. No side effects noted (Does not need refills.). The patient has an active lifestyle but no regular exercise program (Walks and stretching exercises.). The patient's out of office blood pressure checks occur rarely and dietary compliance is fairly good usually adhering to recommendations. The patient states that weight has increased (Up 8 pounds.) and headaches are rarely noted. Note for Multiple chronic conditions follow-up": At last visit we tretaed her for abdominal pain / GERD w omeprazole for 1 month and sx completely cleared. 08-23-2012 Unclassified (19 sources) Follow Up for Multiple Chronic Conditions - The patient is here for follow-up of hypertension and hyperlipidemia. The patient always takes the prescribed medications. No side effects noted (Does not need refills.). The patient engages in regular exercise program 3-5 times per week (Walks). The patient's out of office blood pressure checks occur occasionally (120/60 is an average reading.) and dietary compliance is fairly good usually adhering to recommendations (Is on bariatric diet with Dr Nazario.). The patient states that pain is worse (Arthritic pain is getting worse over the past week.), weight has increased (Up 11 pounds.) and they do not have headaches. Note for Multiple chronic conditions follow-up": Pt had seen rheum several years ago and was on Naproxen 500mg bid prn and hadn't used it for about a year but over past week it has been . Pt does not know of any outreach associate. By my scale pt is up 11 lbs but she had gained siginificantly since last visit and was up to305 sooverall her weight is conming down. 02-21-2012 Unclassified (11 sources) Follow Up for Multiple Chronic Conditions - The patient is here for follow-up of hypertension and hyperlipidemia. The patient always takes the prescribed medications. No side effects noted. The patient has an active lifestyle but no regular exercise program. The patient's out of office blood pressure checks occur occasionally (Average is about 118/82.) and dietary compliance is fairly good usually adhering to recommendations. The patient states that there is no recent angina or dyspnea, there are no vision changes or weakness, weight has increased (up 4# from last visit.) and they do not have headaches. The patient states that the disease has no overall impact. Note for "Multiple chronic conditions follow-up": Labs done and ready to review. reviewed by [facility] 05-10-2016 Unclassified (11 sources) [ADDITIONAL REASON] Fatigue - The onset of the fatigue has been gradual and has been occurring in an intermittent pattern for 6 months. The course has been recurrent. Note for "Fatigue": Occurs during the day and pt just does not feel like doing anything. Does not interfere with job but hard to get motivated to get things done at home. Will get periods of where she feels flushed. Still on Periods and irregular but states they have always been irregular. Pt has PCO. She snores. Excessively sleepy post noon. 05-10-2016 Unclassified (11 sources) Follow Up for Multiple Chronic Conditions - The patient is here for follow-up of hypertension, hyperlipidemia and other condition(s) (DJD multiple joints.). The patient always takes the prescribed medications. No side effects noted. The patient engages in regular exercise program 3-5 times per week. The patient's out of office blood pressure checks occur rarely and dietary compliance is good with close adherance to recommendations. The patient states that there is no recent angina or dyspnea, there are no vision changes or weakness, weight has decreased (Down 2# from last visit.) and they do not have headaches. Note for Multiple chronic conditions follow-up": Pt had labs done and ready to review. UTD with TDLEO. reviewed by [facility] 10-15-2013 Unclassified (11 sources) [ADDITIONAL REASON] Cold Symptoms - Symptoms include nasal congestion, runny nose, scratchy throat, dry cough (and little SOB at times when she goes out in cold. Pulse ox today 98%. ) and headache, but do not include fever. The onset was gradual 1 week(s) ago. The patient describes this as unchanged. The patient is not currently being treated for this problem. Risk factors do not include smoking. Note for Upper respiratory infection": Lots of people she works with have similiar symptoms. reviewed by [facility] 10-15-2013 Unclassified (16 sources) Follow Up for Multiple Chronic Conditions - The patient is here for follow-up of hypertension, hyperlipidemia and other condition(s) (DJD of multiple sites.). The patient always takes the prescribed medications. No side effects noted. The patient engages in regular exercise program 3-5 times per week (Walks about 6days a week and will walk couple miles each day.). The patient's out of office blood pressure checks occur rarely and dietary compliance is good with close adherance to recommendations (Is working with Dr. Nazario at [facility]. Pt is done 9# from last visit.). The patient states that there is no recent angina or dyspnea, there are no vision changes or weakness and they do not have headaches. Note for Multiple chronic conditions follow-up": Pt is feeling pretty well except for some cold symptoms. Labs doneand ready to review. Declines flu shot at this time. ( also, she is going on a trop to [place] and needed malaria prophylaxsis. Has had Lariam before but got sick on it ) 04-09-2013 Unclassified (16 sources) [ADDITIONAL REASON] Cold Symptoms - Symptoms include nasal congestion, non-purulent sputum and sore throat (and cough at first but none now.), but do not include chills or general malaise. The onset was gradual 2 week(s) ago. The patient describes this as unchanged. Current treatment includes none (Pt states this seems to hit at the same time every year. Hss even done allergy testing.). Risk factors do not include smoking. Medical history includes recurrent sinusitis. Note for "Upper respiratory infection": reviewed by [facility] 04-09-2013 Unclassified (7 sources) Follow up for multiple chronic conditions - The patient is here for follow-up of anxiety, arthritis, asthma, GERD, hyperlipidemia and hypertension. The patient always takes the prescribed medications. No side effects noted. The patient engages in regular exercise program 3-5 times per week. The patient's out of office blood pressure checks occur frequently. The patient states that headaches are rarely noted. Note for Multiple chronic conditions follow-up": reviewed by [facility] 05-30-2024 Unclassified (14 sources) 12-03-2021 Urinary tract infections (20 sources) Urinary tract infection, site not specified 10-03-2015 Episodic Past or Other Problems Problem Classification Problem Date Documented Da te Episodic/Chronic Unclassified (19 sources) Well Adult, female - The patient feels well with minor complaints (Would like to discuss arthritic pain.), has good energy level and is sleeping well. The first day of the last menstrual period was : (Mid November). The patient has a balanced diet and takes supplemental vitamins. The patient exercises 3 - 4 times per week (swims and walks daily). The patient sleeps 8 hours per night. Note for "Well Adult, female": She is having worsening DJD. 12-13-2022 Unclassified (19 sources) Hypertension - The symptoms do not include chest pain, dyspnea on exertion, edema, fatigue, headache, palpitations, visual changes or shortness of breath. Note for "Hypertension": The highest reading on Tuesday was 184/99, then 10 min 171/94. Later that day her BP was 144/89. She has a new BP machine. She usually checks her BP occasionally and was running about 130/78. Patient states that her medications got mixed up and she accidently thought her lisinopril was a cholesterol medication instead of blood pressure medication so she did not take her Lisinopril for about 2 weeks. She restarted taking the lisinopril on Tuesday. reviewed by B 10-25-2022 Unclassified (19 sources) F[employer] forms - Here to have FEM[employer] forms completed. Pt has been off recently using vacation but wants to start a leave of absence as of Apr 03. She is under a lot of work stress with conflicts with her new boss. She is in counselling monthly. She is having abdominal pain. Was having panic attacks when she would get to work. Sleep was poor , trouble falling asleep. Diet has been poor , indulging in comfort foods. Arthritis pain and asthma were both worse while under high stress load. She has worked with employer to return to work July 06. Since being off recently her sx are vastly improved. 03-29-2022 Unclassified (19 sources) Well adult female - The patient does not feel well (allergies vs. asthma concerns. work stress.), has decreased energy level and is sleeping well. The patient is not using any method of contraception at this time. The patient has a balanced diet and takes supplemental vitamins. The patient exercises every other day. The patient sleeps 8 hours per night. Note for "Well adult female": She is under very high work stress, just started counselling 12-03-2021 Unclassified (19 sources) Well Adult, female - The patient feels well with no complaints, has good energy level and is sleeping well. The first day of the last menstrual period was : (10/21/20). The patient is not using any method of contraception at this time. The patient takes no supplemental vitamins & iron. The patient exercises daily (walks). The patient sleeps 7 hours per night. Note for "Well Adult, female": reviewed by B 11-24-2020 Unclassified (19 sources) Well adult female - The patient feels well with minor complaints (states that her allergy sx have been worse this year), has good energy level and is sleeping well. The first day of the last menstrual period was : (06/2019). The patient has a balanced diet and takes no supplemental vitamins & iron. The patient exercises daily (walking for about 1 hour daily). The patient sleeps 8 hours per night. Note for "Well adult female": Labs printed to review today.Patient ususally sees [facility], last appt was about 3 years ago, pt is planning to schedule appt with CRANE HOOKER for pap/breast exam. 11-19-2019 Unclassified (19 sources) Follow-up for multiple chronic conditions (RAH) - The patient is here for follow-up of hypertension and hyperlipidemia. The patient always takes the prescribed medications. No side effects noted. The patient engages in regular exercise program 1-3 times per week. The patient's out of office blood pressure checks occur rarely and dietary compliance is fairly good usually adhering to recommendations. The patient has had a chemistry profile completed since the last visit. The patient's last lipid profile was (10/2018). The patient states that weight has decreased (down 2#). The patient states that the disease has no overall impact. 11-13-2018 Unclassified (19 sources) Cold Symptoms - Symptoms include nasal congestion, runny nose, sore throat, dry cough, productive cough, fever, chills, general malaise and headache, but do not include facial pain. The onset was gradual 1 week(s) ago. The symptoms occur constantly. The patient describes this as severe and worsening. The patient is not currently being treated for this problem. Risk factors do not include smoking. The patient has been exposed to an individual with a cough and an individual with similar symptoms. Medical history includes seasonal allergies, but patient denies history of asthma or tonsillectomy. Note for Upper respiratory infection": red and itchy eyesshe is scheduled to have bloodwork done next week and would like to complete that today reviewed by [facility] 10-30-2018 Unclassified (19 sources) Cold Symptoms - Symptoms include nasal congestion (been having nosebleeds), runny nose, sore throat, productive cough, fever (possibly, states hard to tell due to have hot flashes as well), chills, general malaise (body aches) and facial pain (sinus pressure), but do not include ear pain, ear fullness or headache. The onset was sudden 5 day(s) ago. The symptoms occur constantly. The patient describes this as unchanged. The patient is not currently being treated for this problem. Risk factors do not include smoking. The patient has been exposed to an individual with an upper respiratory infection (coworkers). Medical history includes seasonal allergies and recurrent sinusitis, but patient denies history of asthma or tonsillectomy. Note for Upper respiratory infection": reviewed by [facility] 09-01-2018 Unclassified (19 sources) Follow-up for multiple chronic conditions (RAH) - The patient is here for follow-up of hypertension, hyperlipidemia and other condition(s) (osteoarthritis multiple sites). The patient always takes the prescribed medications. No side effects noted. The patient engages in regular exercise program 1-3 times per week (walking). The patient's out of office blood pressure checks occur rarely. The patient has not been seen by an business management specialist in the past 12 months, had numbness in the feet, had tingling in the feet, had burning in the feet or had a chemistry profile completed since the last visit. The patient's last lipid profile was (11/01/2016). The patient states that weight is unchanged. Note for "Multiple chronic conditions follow-up": reviewed by [facility] 05-23-2017 Unclassified (19 sources) Cold Symptoms - Symptoms include nasal congestion, runny nose, ear fullness, sore throat, dry cough and chills, but do not include ear pain, fever, general malaise or headache. The onset was gradual (Since end of Aug; worsened yesterday.). The symptoms occur constantly. The patient describes this as moderate in severity and worsening. The patient is not currently being treated for this problem. Patient denies history of seasonal allergies, recurrent sinusitis, recurrent strep pharyngitis, asthma, tonsillectomy or recurrent ear infections. Note for Upper respiratory infection": Little SOB but no wheezing. 10-03-2015 Unclassified (19 sources) Leg pain - The leg pain began suddenly and has been occurring for 2 weeks. The symptoms have been occurring in a persistent pattern. The symptoms are described as a dull ache and piercing pain and are mild to moderate in severity. The symptoms occur at rest. There is involvement of the right lower extremity. There are no precipitating factors. There are no aggravating factors. There are no relieving factors. There has been no associated numbness and tingling in toes, calf swelling or fever. Note for "Leg pain": No injury. She has been exerecising but nothing new. 11-18-2014 Unclassified (19 sources) Abdominal pain - The onset of the abdominal pain has been variable and has been occurring in an intermittent pattern for 6 weeks. The course has been increasing. The pain is described as a moderate dull ache. The pain is located in the epigastrium and periumbilical area and radiates to the right flank. The symptoms are aggravated by empty stomach but are relieved by eating. The symptoms have been associated with bloating, constipation, dark urine and nausea, while the symptoms have not been associated with diarrhea, dysuria, fever, heartburn or vomiting. Note for "Abdominal pain": Patient also complains of dizziness and a scratchy cough. Patient was seen on 06/12/12 for similiar symptoms and brought in a food diary with her today.no fam hx of IBS, chrohn's , UC. 06-30-2012 Unclassified (19 sources) UTI - There is no assiciated pain. Onset was gradual 1 month(s) ago. There is no known event that preceded symptom onset. The patient describes this as unchanged. Symptoms are relieved by cranberry juice (and has been drinking a lot of water.). Associated symptoms do not include fever, chills, nausea or vomiting. Note for "UTI": Pt states that she never has any actual urinary problems with her uti but will feel flushed and uirne has strong odor. Has not had one of these for couple years. reviewed by [facility] 06-12-2012 Unclassified (19 sources) Stomache ache - Pt states that she has been sick with cold symptoms- chest cough- dry. Had runny nose and s/t to start but none now. Started in with bad stomache ache yeaterday- very crampy and bloated and stomache hurts to touch. No diarrhea, nausea or vomiting. Feels little better today but thought she would still come in. no fevers. 04-23-2011 Unclassified (19 sources) Rash - The onset of the rash has been acute and has been occurring in a persistent pattern for 10 days. The course has been increasing. The rash is characterized as red. The rash was first seen on the upper extremity. It spread to the trunk. There has been associated itching. Note for "Rash": Complains of nausea. reviewed by [facility] 12-02-2010 Unclassified (19 sources) UTI - Symptoms include urinary frequency and malodorous urine, but do not include dysuria or hematuria. Onset was sudden 3 day(s) ago. The symptoms occur intermittently. The patient describes this as moderate in severity and worsening. Associated symptoms include fever (feels flushed) and chills. 06-16-2010 Unclassified (19 sources) Eye symptoms - The onset of the symptoms has been acute and has been occurring in a persistent pattern for 6 days. The course has been worsening. The symptoms are described as mild to moderate and involve the left eye (started in left eye which worsened 2 days ago. Right eye started 2 days ago). The symptoms are described as itching and drainage (watery; there is matting to the eyes in the morning). There has been no associated blurred vision, eye pain, headache, itchy nose, nasal stuffiness, runny nose, sinus problems or sore throat. Note for "Eye symptoms": No exposureDoes not wear contactsNo h/o recent traumadenies FH of glaucoma 05-07-2010 Unclassified (6 sources) allergy - pt is also here for allergy testing. 04-06-2010 Unclassified (6 sources) [ADDITIONAL REASON] Hypertension - The hypertension has been occurring in a continuous pattern for 10 years. The symptoms can not be characterized. Habits include adequate exercise (works outside and walks in the evenings) and non-smoker. 04-06-2010 Unclassified (13 sources) Hypertension - The hypertension has been occurring in a continuous pattern for 10 years. The symptoms can not be characterized. Habits include adequate exercise (works outside and walks in the evenings) and non-smoker. 04-06-2010 Unclassified (13 sources) [ADDITIONAL REASON] allergy - pt is also here for allergy testing. 04-06-2010 Unclassified (13 sources) Well adult female - The patient feels well with no complaints, has good energy level and is sleeping well. The first day of the last menstrual period was : (11/07/23). The patient has a balanced diet. The patient exercises none (walking and swimming). The patient sleeps 7 (8) hours per night. Note for "Well adult female": reviewed by [facility] 12-12-2023 Urinary tract infections (19 sources) Urinary tract infections 06-29-2010 Results Test Name Value Interpretation Reference Range Facility 3D [facility] BILAT SCREENon 12-25 3D [facility] BILAT SCREEN [address] [address] Patient: SIRENA FLORES Phone#: : [phone] Age: 49 Gender: F Pt. Type: Out Account: [id number] Location: Ordering: REAGAN STOVALL Exam Date: 12/25/2024/13:55 Family Phys: Charge Code: [id number] Physician: Burt Order #: [id number] Dose#: PROCEDURE: BILATERAL SCREENING BREAST TOMOSYNTHESIS MAMMOGRAM WITH CAD COMPARISON: [facility], 3D BILAT SCREEN, 01/25/2022, 11:17. INDICATIONS: Screening. BREAST COMPOSITION: The breasts are almost entirely fatty FINDINGS: DIAGNOSTIC CATEGORY 1--NEGATIVE NO CHANGE FROM COMPARISON ASSESSMENT. RIGHT BREAST: No significant suspicious finding. No significant change has occurred. LEFT BREAST: No significant suspicious finding. No significant change has occurred. RECOMMENDATIONS: ROUTINE MAMMOGRAM AND CLINICAL EVALUATION IN 12 MONTHS. PLEASE NOTE: A NORMAL MAMMOGRAM DOES NOT EXCLUDE THE POSSIBILITY OF BREAST CANCER. A CLINICALLY SUSPICIOUS PALPABLE LUMP SHOULD BE BIOPSIED. THIS FACILITY UTILIZES A REMINDER SYSTEM TO ENSURE THAT ALL PATIENTS RECEIVE REMINDER LETTERS FOR APPOINTMENTS. THIS INCLUDES REMINDERS FOR ROUTINE MAMMOGRAMS, DIAGNOSITC MAMMOGRAMS, OR OTHER BREAST IMAGING INTERVENTIONS WHEN APPROPRIATE. THIS PATIENT WILL BE PLACED IN THE APPROPRIATE REMINDER SYSTEM. Dictated by: America Gomes MD on 12/25/2024 at 16:48 Approved by: America Gomes MD on 12/25/2024 at 16:51 Normal [facility] US THYROIDon 12-25-[address] [address] Patient: MARK SIRENA RMoustapha Phone#: : 1975 Age: 49 Gender: F Pt. Type: Out Account: [id number] Location: Ordering: REAGAN STOVALL Exam Date: 12/25/2024/14:17 Family Phys: Charge Code: [id number] Physician: Burt Order #: [id number] Dose#: PROCEDURE: THYROID ULTRASOUND COMPARISON: None. INDICATIONS: Thyromegaly TECHNIQUE: High-resolution ultrasound was performed of the thyroid gland. FINDINGS: RIGHT LOBE: Right lobe is enlarged and heterogeneous. Margins extend beyond the limits of the probe. LEFT LOBE: Left thyroid lobe is heterogeneous in echo pattern. The lobe is enlarged. Margins are beyond the range of the probe. ISTHMUS: The isthmus is 3.2 centimeters in thickness and heterogeneous. OTHER: None. CONCLUSION: 1. Heterogeneous multinodular goiter. Focal cystic or solid lesion is not identified. Dictated by: America Gomes MD on 12/25/2024 at 18:04 Approved by: America Gomes MD on 12/25/2024 at 18:08 Normal [facility] C-REACTIVE PROTEINon 025 CRP [Mass/Vol] 3.2 mg/L Normal <8.0 [facility] Comment on above: Performed By: #### 6 399, 3939, 857 #### [facility] [place] [address] [employer]: Mickey Torrez MD CBC (INCLUDES DIFF/PLT)on Basophils (Bld) [#/Vol] 0.031 10*3/uL Normal 0-200 [facility] Comment on above: Performed By: #### 6 399, 7378, 884 #### [facility] [address], [address] [place], [place] [id number] [employer]: Mickey Torrez MD Basophils/100 WBC (Bld) 0.6 % Normal [facility] Comment on above: Performed By: #### 6 399, 4770, 051 #### [facility] [address], [address] [place], [place] [id number] [employer]: Mickey Torrez MD Eosinophils (Bld) [#/Vol] 0.187 10*3/uL Normal 15-500 [facility] Comment on above: Performed By: #### 6 399, 4420, 899 #### [facility] of [place] [address] [employer]: Mickey Torrez MD Eosinophils/100 WBC (Bld) 3.6 % Normal [facility] Comment on above: Performed By: #### 6 399, 44, 899 #### [facility] [place] [address] [employer]: Mickey Torrez MD Erythrocyte distribution width (RBC) [Ratio] 15.2 % High 11.0-15.0 [facility] Comment on above: Performed By: #### 6 399, 44, 899 #### [facility] [place] [address] [employer]: Mickey Torrez MD Hematocrit (Bld) [Volume fraction] 43.1 % Normal 35.0-45.0 [facility] Comment on above: Performed By: #### 6 399, 44, 899 #### [facility] [place] [address] [employer]: Mickey Torrez MD Hemoglobin (Bld) [Mass/Vol] 13.0 g/dL Normal 11.7-15.5 [facility] Comment on above: Performed By: #### 6 399, 44, 899 #### [facility] of [place] [address] [employer]: Mickey Torrez MD Lymphocytes (Bld) [#/Vol] 1.357 10*3/uL Normal 850-3900 [facility] Comment on above: Performed By: #### 6 399, 44, 899 #### [facility] of [place] [address] [employer]: Mickey Torrez MD Lymphocytes/100 WBC (Bld) 26.1 % Normal [facility] Comment on above: Performed By: #### 6 399, 44, 899 #### [facility] [place] [address] [employer]eeper: Mickey Torrez MD MCH (RBC) [Entitic mass] 25.4 pg Low 27.0-33.0 [facility] Comment on above: Performed By: #### 6 399, 4442, 899 #### [facility] [place] [address] [employer]eeper: Mickey Torrez MD MCHC (RBC) [Mass/Vol] 30.2 g/dL Low 32.0-36.[address] [facility] Comment on above: Result Comment: For adults, a slight decrease in the calculated MCHC value (in the range of 30 to 32 g/dL) is most likely not clinically significant; however, it should be interpreted with caution in correlation with other red cell parameters and the patient's clinical condition. Performed By: #### 6 399, 4495, 894 #### [facility] [place] [address] [employer]eeper: Mickey Torrez MD MCV (RBC) [Entitic vol] 84.3 fL Normal 80.0-100.0 [facility] Comment on above: Performed By: #### 6 399, 4454, 890 #### [facility] [place] [address] [employer]eeper: Mickey Torrez MD Monocytes (Bld) [#/Vol] 0.504 10*3/uL Normal 200-950 [facility] Comment on above: Performed By: #### 6 399, 4486, 899 #### [facility] [place] [address] [employer]eeper: Mickey Torrez MD Monocytes/100 WBC (Bld) 9.7 % Normal [facility] Comment on above: Performed By: #### 6 399, 4453, 899 #### [facility] [place] [address] [employer]eeper: Mickey Torrez MD Neutrophils (Bld) [#/Vol] 3.12 10*3/uL Normal 1433-1037 [facility] Comment on above: Performed By: #### 6 399, 4420, 899 #### [facility] [place] [address] [employer]eeper: Mickey Torrez MD Neutrophils/100 WBC (Bld) 60 % Normal [facility] Comment on above: Performed By: #### 6 399, 4420, 899 #### [facility] [place] [address] [employer]eeper: Mickey Torrez MD Platelet mean volume (Bld) [Entitic vol] 10.3 fL Normal 7.5-12.5 [facility] Comment on above: Performed By: #### 6 399, 4420, 899 #### [facility] [place] [address] [employer]eeper: Mickey Torrez MD Platelets (Bld) [#/Vol] 284 10*3/uL Normal 140-400 [facility] Comment on above: Performed By: #### 6 399, 4420, 899 #### [facility] [place] [address] [employer]eeper: Mickey Torrez MD RBC (Bld) [#/Vol] 5.11 10*6/uL High 3.80-5.10 [facility] Comment on above: Performed By: #### 6 399, 4420, 899 #### [facility] [place] [address] [employer]eeper: Mickey Torrez MD WBC (Bld) [#/Vol] 5.2 10*3/uL Normal 3.8-10.8 [facility] Comment on above: Performed By: #### 6 399, 4420, 899 #### [facility] [place] [address] [employer]eeper: Mickey Torrez MD LYME DISEASE AB W/REFL TO BL OT (IGG, IGM)on 12-14-2024 LYME AB SCREEN <0.90 Normal [facility] Comment on above: Result Comment: Inde x Interpretation ----- < 0.90 Negative 0.90-1.09 Equivocal > 1.09 Positive As recommended by the Food and Drug Administration (FDA), all samples with positive or equivocal results in a Borrelia burgdorferi antibody screen will be tested using a blot method. Positive or equivocal screening test results should not be interpreted as truly positive until verified as such using a supplemental assay (e.g., B. burgdorferi blot). The screening test and/or blot for B. burgdorferi antibodies may be falsely negative in early stages of Lyme disease, including the period when erythema migrans is apparent. Performed By: #### 6 399, 6585, 909 #### [place] [address] [employer]: Mickey Torrez MD TSH 12-14-2024 TSH Qn 1.48 m[IU]/L Normal [facility] Comment on above: Result Comment: Refe rence Range > or = 20 Years 0.40-4.50 Ranges First trimester 0.26-2.66 Second trimester 0.55-2.73 Third trimester 0.43-2.91 Performed By: #### 6 399, 7754, 899 #### [place] [address] [employer]eeper: Mickey Torrez MD No Panel Informationon 12-13 5.2 Normal 3.8 - 10.8 [employer] 5.11 {Million/uL} Abnormal 3.80 - 5.1 0 {Million/uL} [employer] 13.0 g/dL Normal 11.7 - 15.5 g/dL [employer] 43.1 % Normal 35.0 - 45.0 % [facility] [employer], [facility].; [employer] 84.3 fL Normal 80.0 - 100.0 fL [employer] 25.4 pg Abnormal 27.0 - 33.0 pg [facility] [employer] 30.2 g/dL Abnormal 32.0 - 36.0 g/dL [facility], [employer].; [employer] 15.2 % Abnormal 11.0 - 15.0 % [facility] [employer] [facility], Inc.; [employer] 284 Normal 140 - 400 [facility], [employer].; [employer] 10.3 fL Normal 7.5 - 12.5 fL [facility] [employer] [facility], Inc.; [employer] 3120 {cells/uL} Normal 1500 - 7800 {cells/uL} [employer] 1357 {cells/uL} Normal 850 - 3900 {cells/uL} [facility], [employer] 504 {cells/uL} Normal 200 - 950 {cells/uL} [employer] 187 {cells/uL} Normal 15 - 500 {cells/uL} [employer] 31 {cells/uL} Normal 0 - 200 {cells/uL} [employer] 60 % Normal [facility], [employer].; [employer] 26.1 % Normal [facility], [employer].; [employer] 9.7 % Normal [facility] [employer].; [employer] 3.6 % Normal [facility], [employer].; [employer] 0.6 % Normal [facility], [employer].; [employer] <0.90 Normal [employer], [employer].; [employer] 3.2 mg/L Normal [employer], [employer].; [employer] 1.48 {mIU/L} Normal [facility] [employer], [employer].; [employer] COMPREHENSIVE METABOLIC PANE [facility] 12-05-2024 Albumin [Mass/Vol] 4.5 g/dL Normal 3.6-5.1 [facility] Comment on above: Performed By: #### 1 0231, 7440 #### [facility] of [address], [address] [place] [address] [employer]: Mickey Torrez MD Albumin/Globulin [Mass ratio] 1.6 {ratio} Normal 1.0-2.5 [facility] Comment on above: Performed By: #### 1 0231, 7600 #### [facility] of [address], [address] [place] [address] [employer]eeper: Mickey Torrez MD ALP [Catalytic activity/Vol] 102 U/L Normal 37-153 [facility] Comment on above: Performed By: #### 1 0231, 7600 #### [facility] of [address], [address] [place] [address] [employer]eeper: Mickey Torrez MD ALT [Catalytic activity/Vol] 21 U/L Normal 6-29 [facility] Comment on above: Performed By: #### 1 023, 7600 #### [facility] of [address], [address] [place] [address] [employer]eeper: Mickey Torrez MD AST [Catalytic activity/Vol] 19 U/L Normal 10-35 [facility] Comment on above: Performed By: #### 1 0231, 7600 #### [facility] of [address], [address] [place] [address] [employer]eeper: Mickey Torrez MD Bilirubin [Mass/Vol] 0.6 mg/dL Normal 0.2-1.2 [facility] Comment on above: Performed By: #### 1 0231, 7600 #### [facility] of [address], [address] [place] [address] [employer]: Mickey Torrez MD BUN/CREATININE RATIO SEE NOTE: Normal 6-22 [facility] Comment on above: Result Comment: Not Reported: BUN and Creatinine are within reference range. Performed By: #### 1 0231, 7600 #### [facility] of [address], [address] [place] [address] [employer]: Mickey Torrez MD Calcium [Mass/Vol] 9.3 mg/dL Normal 8.6-10.4 [facility] Comment on above: Performed By: #### 1 230, 7600 #### [facility] [place] [address] [employer]eeper: Mickey Torrez MD Chloride [Moles/Vol] 103 mmol/L Normal 98-110 [facility] Comment on above: Performed By: #### 1 230, 7600 #### [facility] of [address], [address] [place] [address] [employer]eeper: Mickey Torrez MD CO2 [Moles/Vol] 27 mmol/L Normal 20-32 [facility] Comment on above: Performed By: #### 1 230, 7600 #### [facility] [place] [address] [employer]eeper: Mickey Torrez MD Creatinine [Mass/Vol] 0.70 mg/dL Normal 0.50-1.[address] [facility] Comment on above: Performed By: #### 1 230, 0 #### [facility] [place] [address] [employer]eeper: Mickey Torrez MD GFR/1.73 sq M.predicted among non-blacks MDRD (S/P/Bld) [Vol rate/Area] 105 mL/min/{1.73_m2} Normal > OR = 60 [facility] Comment on above: Performed By: #### 1 230, 7600 #### [facility] of [place] [address] [employer]eeper: Mickey Torrez MD Globulin (S) [Mass/Vol] 2.9 g/dL Normal 1.9-3.7 [facility] Comment on above: Performed By: #### 1 023, 7600 #### [facility] of [place] [address] [employer]eeper: Mickey Torrez MD Glucose [Mass/Vol] 102 mg/dL High 65-99 [facility] Comment on above: Result Comment: Fasting reference interval For someone without known diabetes, a glucose value between 100 and 125 mg/dL is consistent with prediabetes and should be confirmed with a follow-up test. Performed By: #### 1 023, 7600 #### [facility] [place] [address] [employer]eeper: Mickey Torrez MD Potassium [Moles/Vol] 4.4 mmol/L Normal 3.5-5.[address] [facility] Comment on above: Performed By: #### 1 023, 7600 #### [facility] [place] [address] [employer] Keeper: Mickey Torrez MD Protein [Mass/Vol] 7.4 g/dL Normal 6.1-8.1 [facility] Comment on above: Performed By: #### 1 230, 7600 #### [facility] [place] [address] [employer] Keeper: Mickey Torrez MD Sodium [Moles/Vol] 139 mmol/L Normal 135-146 [facility] Comment on above: Performed By: #### 1 023, 7600 #### [facility] [place] [address] [employer]eeper: Mickey Torrez MD Urea nitrogen [Mass/Vol] 15 mg/dL Normal 7-25 [facility] Comment on above: Performed By: #### 1 023, 7600 #### [facility] [place] [address] [employer]eeper: Mickey Torrez MD LIPID PANEL, [facility] 06-0 Cholesterol [Mass/Vol] 134 mg/dL Normal <200 [facility] Comment on above: Performed By: #### 1 023, 7600 #### [facility] [place] [address] [employer]eeper: Mickey Torrez MD Cholesterol in HDL [Mass/Vol] 51 mg/dL Normal > OR = 50 [facility] Comment on above: Performed By: #### 1 0231, 7600 #### [facility] [address], [address] [place] [address] [employer]eeper: Mickey Torrez MD Cholesterol in LDL [Mass/Vol] 66 mg/dL Normal [facility] Comment on above: Result Comment: Refe rence range: <100 Desirable range <100 mg/dL for primary prevention; <70 mg/dL for patients with CHD or diabetic patients with > or = 2 CHD risk factors. LDL-C is now calculated using the Medhat calculation, which is a validated novel method providing better accuracy than the Friedewald equation in the estimation of LDL-C. Yamil SS et al. LISSY. 2013;310(19): 2595-0051 (http://education.[employer]/faq/UTD063) Performed By: #### 1 0231, 7600 #### [facility] [address], [address] [place] [address] [employer]eeper: Mickey Torrez MD Cholesterol.total/Cho lesterol in HDL [Mass ratio] 2.6 {ratio} Normal <5.0 [facility] Comment on above: Performed By: #### 1 023, 7600 #### [facility] [address], [address] [place] [address] [employer]eeper: Mickey Torrez MD NON HDL CHOLESTEROL 83 mg/dL (calc) Normal <130 [facility] Comment on above: Result Comment: For patients with diabetes plus 1 major ASCVD risk factor, treating to a non-HDL-C goal of <100 mg/dL (LDL-C of <70 mg/dL) is considered a therapeutic option. Performed By: #### 1 0231, 7600 #### [facility] [address], [address] [place] [address] [employer]eeper: Mickey Torrez MD Triglyceride [Mass/Vol] 91 mg/dL Normal <150 [facility] Comment on above: Performed By: #### 1 0231, 7600 #### [facility] [address], [address] [place] [address] [employer]eeper: Mickey Torrez MD No Panel Informationon 12-04 134 mg/dL Normal [facility] [facility] 51 mg/dL Normal [facility] [employer] [facility] [facility] 91 mg/dL Normal [facility] [employer] [facility] 66 Normal [facility] 2.6 Normal [facility] [employer] [facility] 83 Normal [facility] [employer] 102 mg/dL Abnormal 65 - 99 mg/dL [facility] [employer] [facility] [facility] 15 mg/dL Normal 7 - 25 mg/dL [facility], Inc.; [employer] 0.70 mg/dL Normal 0.50 - 1.03 mg/dL [facility] [employer] 105 Normal [facility] SEE NOTE: Normal 6 - 22 [facility] [employer] [facility] 139 mmol/L Normal 135 - 146 mmol/L [facility] [employer] 4.4 mmol/L Normal 3.5 - 5.3 mmol/L [facility] [employer] 103 mmol/L Normal 98 - 110 mmol/L [facility] 27 mmol/L Normal 20 - 32 mmol/L [facility] [employer], [employer] 9.3 mg/dL Normal 8.6 - 10.4 mg/dL [facility] [facility] 7.4 g/dL Normal 6.1 - 8.1 g/dL [facility] [employer] 4.5 g/dL Normal 3.6 - 5.1 g/dL [facility].; [facility] [employer] 2.9 Normal 1.9 - 3.7 [facility] [facility] 1.6 Normal 1.0 - 2.5 [facility].; [facility], [facility] 0.6 mg/dL Normal 0.2 - 1.2 mg/dL [facility].; [facility], [facility] 102 U/L Normal 37 - 153 U/L [facility].; [facility], [facility]. 19 U/L Normal 10 - 35 U/L [facility].; [facility], [facility]. 21 U/L Normal 6 - 29 U/L [facility].; [facility], [facility]. Laboratory - Chemistry and C hemistry - challengeon 12-05-2023 Albumin [Mass/Vol] 4.1 g/dL Normal 3.6 - 5.1 g/dL [facility].; [facility], [facility] Albumin/Globulin [Mass ratio] 1.5 {ratio} Normal 1.0 - 2.5 [facility].; [facility], [facility] ALP [Catalytic activity/Vol] 92 U/L Normal 31 - 125 U/L [facility].; [facility], [facility]. ALT [Catalytic activity/Vol] 11 U/L Normal 6 - 29 U/L [facility].; [facility], [facility]. AST [Catalytic activity/Vol] 14 U/L Normal 10 - 35 U/L [facility], [facility].; [facility], [facility]. Bilirubin [Mass/Vol] 0.3 mg/dL Normal 0.2 - 1 .2 mg/dL [facility].; [facility], [facility]. Calcium [Mass/Vol] 9.1 mg/dL Normal 8.6 - 10. 2 mg/dL [facility], [facility].; [facility], [facility]. Chloride [Moles/Vol] 107 mmol/L Normal 98 - 11 0 mmol/L [facility].; [facility], [facility]. Cholesterol [Mass/Vol] 137 mg/dL Normal [facility], [facility].; [facility], [facility]. Cholesterol in HDL [Mass/Vol] 51 mg/dL Normal [facility], [facility].; [facility], [facility]. Cholesterol in LDL [Mass/Vol] 68 mg/dL Normal [facility], [facility].; [facility], [facility]. CO2 [Moles/Vol] 24 mmol/L Normal 20 - 32 mmol/L [facility], [facility].; [facility], [facility]. Creatinine [Mass/Vol] 0.68 mg/dL Normal 0.50 - 0.99 mg/dL [facility], [facility].; [facility], [facility]. GFR/1.73 sq M.predicted among non-blacks MDRD (S/P/Bld) [Vol rate/Area] 107 mL/min/{1.73_m2} Normal [facility], [facility].; [facility], [facility]. Glucose [Mass/Vol] 98 mg/dL Normal 65 - 99 mg/dL [facility].; [facility], [facility]. Potassium [Moles/Vol] 4.4 mmol/L Normal 3.5 - 5.3 mmol/L [facility], [facility].; [facility], [facility]. Protein [Mass/Vol] 6.8 g/dL Normal 6.1 - 8.1 g/dL [facility], [facility].; [employer] [facility] Sodium [Moles/Vol] 139 mmol/L Normal 135 - 146 mmol/L [facility], [facility].; [facility], [facility]. Triglyceride [Mass/Vol] 93 mg/dL Normal [facility], [facility].; [employer] [facility], [employer] Urea nitrogen [Mass/Vol] 20 mg/dL Normal 7 - 25 mg/dL [facility], [facility].; [employer] [facility], [facility] No Panel Informationon 12-04 BUN/CREATININE RATIO SEE NOTE: Normal 6 - 22 [facility].; [facility] [employer] CHOL/HDLC RATIO 2.7 Normal [facility], [facility].; [facility], [facility]. GLOBULIN 2.7 Normal 1.9 - 3.7 [facility], [facility].; [employer] [facility], [facility]. NON HDL CHOLESTEROL 86 Normal [facility], [facility].; [facility] [employer] 137 mg/dL Normal [facility], [facility].; [facility] [employer] 51 mg/dL Normal [facility] [employer], [facility].; [facility] [employer] 93 mg/dL Normal [facility].; [facility] [employer] [facility] 68 Normal [facility] 2.7 Normal 1.9 - 3.7 [facility], Inc[facility] 86 Normal [facility] [employer] [facility], [facility].; [facility] [employer] [facility]. 98 mg/dL Normal 65 - 99 mg/dL [facility], [facility].; [facility] 20 mg/dL Normal 7 - 25 mg/dL [facility], [facility].; [facility] [employer] 0.68 mg/dL Normal 0.50 - 0.99 mg/dL [facility], [facility].; [facility] 107 Normal [facility], Inc.; [facility], Inc[facility] SEE NOTE: Normal 6 - 22 [facility], [facility].; [facility] [employer] 139 mmol/L Normal 135 - 146 mmol/L [facility], Inc.; [facility] 4.4 mmol/L Normal 3.5 - 5.3 mmol/L [facility], Inc.; [facility], [facility] 107 mmol/L Normal 98 - 110 mmol/L [facility], Inc.; [facility], [facility] 24 mmol/L Normal 20 - 32 mmol/L [facility], Inc.; [facility] [employer] 9.1 mg/dL Normal 8.6 - 10.2 mg/dL [facility], [facility].; [facility] [employer] 6.8 g/dL Normal 6.1 - 8.1 g/dL [facility], Inc.; [facility] [employer] 4.1 g/dL Normal 3.6 - 5.1 g/dL [facility], Inc.; [facility] [employer] 1.5 Normal 1.0 - 2.5 [employer] [facility], Inc.; [facility] [employer] 0.3 mg/dL Normal 0.2 - 1.2 mg/dL [facility] [employer], Inc.; [facility] [employer] 92 U/L Normal 31 - 125 U/L [facility], [facility].; [facility], [facility] 14 U/L Normal 10 - 35 U/L [facility], [facility].; [facility], [facility]. 11 U/L Normal 6 - 29 U/L [facility].; [facility], [facility]. No Panel Informationon 12-13 ALMOND (F20) IGE <0.10 Normal [facility], [facility].; [facility], [facility]. NATALIYA SCREEN, IFA Negative Normal [facility], [facility] CASHEW NUT (F202) IGE <0.10 Normal [facility], [facility].; [facility], [facility]. CLASS 0 Normal [facility].; [facility], [facility]. CLASS 0/1 Normal [facility].; [facility], [facility]. CODFISH (F3) IGE <0.10 Normal [facility], [facility].; [facility], [facility]. COW'S MILK (F2) IGE 0.22 kU/L Abnormal [facility], [facility]. EGG WHITE (F1) IGE <0.10 Normal [facility].; [facility], [facility]. HAZELNUT (F17) IGE <0.10 Normal [facility].; [facility], [facility]. PEANUT (F13) IGE <0.10 Normal [facility], [facility].; [facility], [facility]. RHEUMATOID FACTOR <14 Normal [facility].; [facility], [facility]. SALMON (F41) IGE <0.10 Normal [facility], [facility].; [facility], [facility]. SCALLOP (F338) IGE <0.10 Normal [facility].; [facility], [facility]. SED RATE BY MODIFIED WESTERGREN 11 mm/h Normal [facility].; [facility], [facility]. SESAME SEED (F10) IGE <0.10 Normal [facility], [facility].; [facility], Inc[facility] SHRIMP (F24) IGE <0.10 Normal [facility], [facility].; [facility], [facility]. SOYBEAN (F14) IGE <0.10 Normal [facility], [facility].; [employer]. TUNA (F40) IGE <0.10 Normal [facility].; [employer] WALNUT (F256) IGE <0.10 Normal [employer] WHEAT (F4) IGE <0.10 Normal [facility].; [employer]. See Below Normal [employer].; [employer] Work Phone: <0.10 Normal [employer] 0 Normal [employer] 0.22 kU/L Abnormal [employer] 0/1 Normal [employer] 11 mm/h Normal [employer] Negative Normal [employer]. <14 Normal [employer]. Laboratory - Chemistry and C hemistry - challengeon 12-06-2022 Albumin [Mass/Vol] 4.2 g/dL Normal 3.6 - 5.1 g/dL [facility] [employer], [employer]. Albumin/Globulin [Mass ratio] 1.4 {ratio} Normal 1.0 - 2.5 [employer].; [employer]. ALP [Catalytic activity/Vol] 92 U/L Normal 31 - 125 U/L [employer]. ALT [Catalytic activity/Vol] 16 U/L Normal 6 - 29 U/L [employer].; [employer]. AST [Catalytic activity/Vol] 16 U/L Normal 10 - 35 U/L [employer].; [employer], [employer]. Bilirubin [Mass/Vol] 0.5 mg/dL Normal 0.2 - 1 .2 mg/dL [employer].; [employer]. Calcium [Mass/Vol] 9.7 mg/dL Normal 8.6 - 10. 2 mg/dL [facility], [facility].; [facility], [facility]. Chloride [Moles/Vol] 101 mmol/L Normal 98 - 11 0 mmol/L [facility], [facility].; [facility], [facility]. Cholesterol [Mass/Vol] 161 mg/dL Normal [facility], [facility].; [facility], Inc[facility] Cholesterol in HDL [Mass/Vol] 47 mg/dL Abnormal [facility], [facility].; [facility], [facility]. Cholesterol in LDL [Mass/Vol] 92 mg/dL Normal [facility], [facility].; [facility], Inc. CO2 [Moles/Vol] 26 mmol/L Normal 20 - 32 mmol/L [facility], [facility].; [facility], [facility]. Creatinine [Mass/Vol] 0.77 mg/dL Normal 0.50 - 0.99 mg/dL [facility], [facility].; [facility], [facility]. GFR/1.73 sq M.predicted among non-blacks MDRD (S/P/Bld) [Vol rate/Area] 95 mL/min/{1.73_m2} Normal [facility], [facility].; [facility], Inc[facility] Glucose [Mass/Vol] 91 mg/dL Normal 65 - 99 mg/dL [facility].; [facility], Inc. Potassium [Moles/Vol] 4.7 mmol/L Normal 3.5 - 5.3 mmol/L [facility], [facility].; [employer] [facility], [facility]. Protein [Mass/Vol] 7.3 g/dL Normal 6.1 - 8.1 g/dL [facility], [facility].; [facility], [facility] Sodium [Moles/Vol] 138 mmol/L Normal 135 - 146 mmol/L [facility], [facility].; [employer] [facility], Inc. Triglyceride [Mass/Vol] 121 mg/dL Normal [facility], [facility].; [employer] [facility], [facility]. TSH Qn 1.66 m[IU]/L Normal [facility], [facility].; [employer] [facility], Inc. Urea nitrogen [Mass/Vol] 14 mg/dL Normal 7 - 25 mg/dL [facility], [facility].; [employer] [facility], [facility]. No Panel Informationon 12-06 BUN/CREATININE RATIO NOT APPLICABLE Normal 6 - 22 [facility], [facility].; [facility], [employer] CHOL/HDLC RATIO 3.4 Normal [facility], [facility].; [facility], [employer] GLOBULIN 3.1 Normal 1.9 - 3.7 [facility], [facility].; [facility], [employer] NON HDL CHOLESTEROL 114 Normal [facility], [facility].; [facility], [employer] 161 mg/dL Normal [facility], [facility].; [facility], [employer] 47 mg/dL Abnormal [facility], [facility].; [facility], [employer] 121 mg/dL Normal [facility], [facility].; [facility], [facility] 92 Normal [facility], [facility].; [facility], [employer] 3.4 Normal [facility], [facility].; [facility] [employer] 114 Normal [employer] [facility], [facility].; [facility], [employer]. 91 mg/dL Normal 65 - 99 mg/dL [facility], [facility].; [facility], [employer] 14 mg/dL Normal 7 - 25 mg/dL [facility], [facility].; [facility], [employer] 0.77 mg/dL Normal 0.50 - 0.99 mg/dL [facility], [facility].; [facility], [employer] 95 Normal [facility], [facility].; [employer], [employer] NOT APPLICABLE Normal - [facility], [facility].; [facility], [employer] 138 mmol/L Normal 135 - 146 mmol/L [employer] [facility], [facility].; [facility], [employer] 4.7 mmol/L Normal 3.5 - 5.3 mmol/L [facility], [facility].; [facility], [employer] 101 mmol/L Normal 98 - 110 mmol/L [facility], [facility].; [facility], [employer] 26 mmol/L Normal 20 - 32 mmol/L [facility], [facility].; [facility], [employer] 9.7 mg/dL Normal 8.6 - 10.2 mg/dL [facility], [facility].; [facility], [employer] 7.3 g/dL Normal 6.1 - 8.1 g/dL [facility], [facility].; [facility], [employer] 4.2 g/dL Normal 3.6 - 5.1 g/dL [facility], [facility].; [facility], [employer] 3.1 Normal 1.9 - 3.7 [facility], [facility].; [facility], [facility] 1.4 Normal 1.0 - 2.5 [facility], [facility].; [employer] [facility], [facility] 0.5 mg/dL Normal 0.2 - 1.2 mg/dL [facility], [facility].; [facility], [employer] 92 U/L Normal 31 - 125 U/L [facility], [facility].; [employer] [facility], Inc. 16 U/L Normal 6 - 29 U/L [facility], [facility].; [facility], [employer] 1.66 {mIU/L} Normal [facility].; [employer]. Absolute lymphocyte counton 12-29-2021 Lymphocytes Auto (Unsp spec) [#/Vol] 1.87 10*3/uL 0.83-4.51 [facility] Work Phone: Alternaria alternata IgE ser umon 12-29-2021 A. alternata IgE Qn (S) <0.10 kU/L Class 0 [facility] Work Phone: Basophil percentageon 2021 Basophils/100 WBC (Bld) 0.5 % 0-1 [facility] Work Phone: Eosinophils/100 WBC (Bld) 1.7 % 0-5 [facility] Work Phone: Neutrophils (Bld) [#/Vol] 6.0 10*3/uL 2.0-7.7 [facility] Work Phone: Neutrophils/100 WBC (Bld) 68.3 % 47-70 [facility] Work Phone: WBC (Bld) [#/Vol] 8.7 10*3/uL 4.4-11.0 [facility] Work Phone: Blood erythrocytes count (nu mber/volume)on 12-29-2021 RBC (Bld) [#/Vol] 4.90 10*6/uL 4.2-5.4 [facility] Work Phone: Blood hemoglobin measurement (mass/volume)on 12-29-2021 Hemoglobin (Bld) [Mass/Vol] 13.5 g/dL 12.0-15.0 [facility] Work Phone: Blood lymphocytes/100 leukoc yteson 12-29-2021 Lymphocytes/100 WBC (Bld) 21.5 % 19-41 [facility] Work Phone: Blood monocytes/100 leukocyt eson 12-29-2021 Monocytes/100 WBC (Bld) 7.4 % 0-10 [facility] Work Phone: Blood platelet mean volumeon 12-29-2021 Platelet mean volume (Bld) [Entitic vol] 9.6 fL 6.2-12.0 [facility] Work Phone: Determination of erythrocyte mean corpuscular volume (MCV)on 12-29-2021 MCV (RBC) [Entitic vol] 86.1 fL 81-99 [facility] Work Phone: Hematocrit Auto (Bld) [Volum e fraction]on 12-29-2021 Hematocrit (Bld) [Volume fraction] 42.2 % 37-47 [facility] Work Phone: Laboratory - Hematology and Cell countson 12-29-2021 Erythrocyte distribution width (RBC) [Entitic vol] 44.0 fL 35.1-43.9 [facility] Work Phone: Erythrocyte distribution width (RBC) [Ratio] 14.0 % 11.6-14.6 [facility] Work Phone: Immature granulocytes/100 WBC (Bld) 0.600 % 0.0-0.9 [facility] Work Phone: Comment on above: IG% - Immature Granu locytes (promyelocytes, myelocytes and metamyelocytes) > 1% indicates that a LEFT SHIFT is Present. MCH (RBC) [Entitic mass] 27.6 pg 27.0-32.0 [facility] Work Phone: Nucleated RBC/100 WBC (Bld) [Ratio] 0 % 0-5 [facility] Work Phone: MCHC Auto (RBC) [Mass/Vol]on 12-29-2021 MCHC (RBC) [Mass/Vol] 32.0 g/dL 32-36 [facility] Work Phone: No Panel Informationon 12-29 Cat Hair Allergen <0.10 kU/L Class 0 [facility] Work Phone: Common Ragweed (Short) Allergen <0.10 kU/L Class 0 [facility] Work Phone: Immunoglobulin E 16 IU/mL 6-495 [facility] Work Phone: Maple (Wake) Allergen IgE Ab <0.10 kU/L Class 0 [facility] Work Phone: Mouse Urine Allergen IgE Antibody <0.10 kU/L Class 0 [facility] Work Phone: Comment on above: Performed at: [address] [id number] Director: Jessica Mahmood MD, Phone: [phone] RAST Comment Comment . [facility] Work Phone: Comment on above: Levels of Specific I gE Class Description of Class ----- < 0.10 0 Negative 0.10 - 0.31 0/I Equivocal/Low 0.32 - 0.55 I Low 0.56 - 1.40 II Moderate 1.41 - 3.90 III High 3.91 - 19.00 IV Very High 19.01 - 100.00 V Very High >100.00 Very High [place] Tree Allergen <0.10 kU/L Class 0 [facility] Work Phone: Platelets bldon 12-29-2021 Platelets (Bld) [#/Vol] 346 10*3/uL 150-450 [facility] Work Phone: Rough pigweed specific IgE a ntibody assayon 12-29-2021 Rough Pigweed IgE Qn (S) <0.10 kU/L Class 0 [facility] Work Phone: Serum Congolese sycamore IgE antibody assay (units/volume)on 12-29-2021 Congolese [place] IgE Qn (S) <0.10 kU/L Class 0 [facility] Work Phone: Serum Aspergillus fumigatus IgE antibody assay (units/volume)on 12-29-2021 A. fumigatus IgE Qn (S) <0.10 kU/L Class 0 [facility] Work Phone: Serum Bermuda grass IgE anti body assay (units/volume)on 12-29-2021 Bermuda grass IgE Qn (S) <0.10 kU/L Class 0 [facility] Work Phone: Serum Cladosporium herbarum IgE antibody assay (units/volume)on 12-29-2021 C. herbarum IgE Qn (S) <0.10 kU/L Class 0 [facility] Work Phone: Serum Dermatophagoides farin ae specific IgE antibody assay (units/volume)on 12-29-2021 Congolese house dust mite IgE Qn (S) <0.10 kU/L Class 0 [facility] Work Phone: Serum house dust mi te IgE antibody assay (units/volume)on 12-29-2021 house dust mite IgE Qn (S) <0.10 kU/L Class 0 [facility] Work Phone: Serum Penicillium notatum Ig E antibody assay (units/volume)on 12-29-2021 P. notatum IgE Qn (S) <0.10 kU/L Class 0 [facility] Work Phone: Serum Periplaneta americana IgE antibody assay (units/volume)on 12-29-2021 Congolese Cockroach IgE Qn (S) <0.10 kU/L Class 0 [facility] Work Phone: Serum Lebanese thistle specif ic IgE antibody assayon 12-29-2021 Saltwort IgE Qn (S) <0.10 kU/L Class 0 [facility] Work Phone: Serum birch specific IgE ant ibody assayon 12-29-2021 Silver Birch IgE Qn (S) <0.10 kU/L Class 0 [facility] Work Phone: Serum black walnut IgE antib ricarda assay (units/volume)on 12-29-2021 Black [place] IgE Qn (S) <0.10 kU/L Class 0 [facility] Work Phone: Serum cottonwood IgE antibod y assay (units/volume)on 12-29-2021 [place] IgE Qn (S) <0.10 kU/L Class 0 [facility] Work Phone: Serum dog epithelium IgE ant ibody assay (units/volume)on 12-29-2021 Dog epithelium IgE Qn (S) <0.10 kU/L Class 0 [facility] Work Phone: Serum mountain cedar specifi c IgE antibody assayon 12-29-2021 Mountain Juniper IgE Qn (S) <0.10 kU/L Class 0 [facility] Work Phone: Serum pecan or hickory nut I gE antibody assay (units/volume)on 12-29-2021 Pecan or [place] Nut IgE Qn (S) <0.10 kU/L Class 0 [facility] Work Phone: Serum sheep sorrel IgE antib ricarda assay (units/volume)on 12-29-2021 Sheep Mallory IgE Qn (S) <0.10 kU/L Class 0 [facility] Work Phone: Serum izaiah IgE antibody a ssay (units/volume)on 12-29-2021 Iaziah IgE Qn (S) <0.10 kU/L Class 0 [facility] Work Phone: Serum white kevin IgE antibody assay (units/volume)on 12-29-2021 White Kevin IgE Qn (S) <0.10 kU/L Class 0 [facility] Work Phone: Serum white elm IgE antibody assay (units/volume)on 12-29-2021 White Elm IgE Qn (S) <0.10 kU/L Class 0 [facility] Work Phone: Serum white mulberry IgE ant ibody assay (units/volume)on 12-29-2021 White mulberry IgE Qn (S) <0.10 kU/L Class 0 [facility] Work Phone: Laboratory - Chemistry and C hemistry - challengeon 11-19-2021 Albumin [Mass/Vol] 4.0 g/dL Normal 3.6 - 5.1 g/dL [facility].; [facility], [facility] Albumin/Globulin [Mass ratio] 1.4 {ratio} Normal 1.0 - 2.5 [facility].; [employer] [facility], [facility]. ALP [Catalytic activity/Vol] 89 U/L Normal 31 - 125 U/L [facility].; [employer] [facility], [facility]. ALT [Catalytic activity/Vol] 16 U/L Normal 6 - 29 U/L [facility].; [employer] [facility], [facility]. AST [Catalytic activity/Vol] 15 U/L Normal 10 - 35 U/L [facility].; [facility] [employer] [facility]. Bilirubin [Mass/Vol] 0.5 mg/dL Normal 0.2 - 1 .2 mg/dL [employer] [facility].; [facility], [employer]. Calcium [Mass/Vol] 9.4 mg/dL Normal 8.6 - 10. 2 mg/dL [employer] [facility], [facility].; [facility], [facility]. Chloride [Moles/Vol] 106 mmol/L Normal 98 - 11 0 mmol/L [facility], [facility].; [facility], [employer]. Cholesterol [Mass/Vol] 147 mg/dL Normal [facility].; [facility], [facility]. Cholesterol in HDL [Mass/Vol] 46 mg/dL Abnormal [facility]; [facility], [facility] Cholesterol in LDL [Mass/Vol] 80 mg/dL Normal [facility]; [facility], [facility] CO2 [Moles/Vol] 26 mmol/L Normal 20 - 32 mmol/L [facility]; [facility], [facility] Creatinine [Mass/Vol] 0.78 mg/dL Normal 0.50 - 1.10 mg/dL [facility]; [facility], [facility] GFR/1.73 sq M.predicted among blacks MDRD (S/P/Bld) [Vol rate/Area] 105 mL/min/{1.73_m2} Normal [facility]; [facility], [facility] Glucose [Mass/Vol] 97 mg/dL Normal 65 - 99 mg/dL [facility]; [facility], [facility] Potassium [Moles/Vol] 4.4 mmol/L Normal 3.5 - 5.3 mmol/L [facility]; [facility], [facility] Protein [Mass/Vol] 6.9 g/dL Normal 6.1 - 8.1 g/dL [facility]; [facility], [facility] Sodium [Moles/Vol] 140 mmol/L Normal 135 - 146 mmol/L [facility], [facility].; [facility], [facility]. Triglyceride [Mass/Vol] 116 mg/dL Normal [facility]; [facility], [facility] Urea nitrogen [Mass/Vol] 16 mg/dL Normal 7 - 25 mg/dL [facility]; [facility], [facility] No Panel Informationon 11-19 BUN/CREATININE RATIO NOT APPLICABLE Normal 6 - 22 [facility]; [facility], [facility] CHOL/HDLC RATIO 3.2 Normal [facility]; [facility], [facility] eGFR NON-AFR. SAUDI ARABIAN 91 Normal [facility]; [facility], [facility] GLOBULIN 2.9 Normal 1.9 - 3.7 [facility]; [facility], [facility] NON HDL CHOLESTEROL 101 Normal [facility], [facility].; [facility] [employer] 147 mg/dL Normal [facility], Inc.; [facility] 46 mg/dL Abnormal [facility], [facility].; [facility] [facility] [employer]. 116 mg/dL Normal [employer] [facility], Inc.; [facility] [employer] 80 Normal [facility].; [employer] [facility] [employer]. 3.2 Normal [facility], [facility].; [facility] [employer] 101 Normal [facility], [facility].; [employer] [facility] [employer] 97 mg/dL Normal 65 - 99 mg/dL [facility], Inc.; [facility], [employer] 16 mg/dL Normal 7 - 25 mg/dL [facility], [facility].; [facility] [employer] 0.78 mg/dL Normal 0.50 - 1.10 mg/dL [employer] [facility], Inc.; [facility] [employer] 91 Normal [facility], [facility].; [facility] [employer] 105 Normal [facility], [facility].; [facility], [employer]. NOT APPLICABLE Normal 6 - 22 [facility].; [facility] [employer] 140 mmol/L Normal 135 - 146 mmol/L [facility], [facility].; [facility] [employer] 4.4 mmol/L Normal 3.5 - 5.3 mmol/L [facility], [facility].; [facility] 106 mmol/L Normal 98 - 110 mmol/L [facility].; [facility] 26 mmol/L Normal 20 - 32 mmol/L [facility] [place] 9.4 mg/dL Normal 8.6 - 10.2 mg/dL [facility].; [facility] [employer] 6.9 g/dL Normal 6.1 - 8.1 g/dL [facility].; [place] 4.0 g/dL Normal 3.6 - 5.1 g/dL [facility].; [facility] 2.9 Normal 1.9 - 3.7 [facility], Inc.; [facility], Inc[facility] 1.4 Normal 1.0 - 2.5 [facility], [facility].; [facility], [facility]. 0.5 mg/dL Normal 0.2 - 1.2 mg/dL [facility], [facility].; [facility], [facility]. 89 U/L Normal 31 - 125 U/L [facility], [facility].; [facility], [facility] 15 U/L Normal 10 - 35 U/L [facility], [facility].; [facility], [facility]. 16 U/L Normal 6 - 29 U/L [facility], [facility].; [facility], [facility]. Laboratory - Chemistry and C hemistry - challengeon 11-17-2020 Albumin [Mass/Vol] 4.3 g/dL Normal 3.6 - 5.1 g/dL [facility], [facility].; [facility], [facility]. Albumin/Globulin [Mass ratio] 1.3 {ratio} Normal 1.0 - 2.5 [facility], [facility].; [facility], [facility]. ALP [Catalytic activity/Vol] 85 U/L Normal 31 - 125 U/L [facility], [facility].; [facility], [facility]. ALT [Catalytic activity/Vol] 18 U/L Normal 6 - 29 U/L [facility], [facility].; [facility], Inc. AST [Catalytic activity/Vol] 16 U/L Normal 10 - 35 U/L [facility], [facility].; [facility], [facility]. Bilirubin [Mass/Vol] 0.4 mg/dL Normal 0.2 - 1 .2 mg/dL [facility], [facility].; [facility], [facility]. Calcium [Mass/Vol] 9.3 mg/dL Normal 8.6 - 10. 2 mg/dL [facility], [facility].; [facility], [facility]. Chloride [Moles/Vol] 104 mmol/L Normal 98 - 11 0 mmol/L [facility], [facility].; [facility], [facility] Cholesterol [Mass/Vol] 174 mg/dL Normal [facility], [facility].; [facility], [facility]. Cholesterol in HDL [Mass/Vol] 51 mg/dL Normal [facility], [facility].; [facility], [facility]. Cholesterol in LDL [Mass/Vol] 104 mg/dL Abnormal [facility].; [facility], [facility] CO2 [Moles/Vol] 27 mmol/L Normal 20 - 32 mmol/L [facility], [facility] Creatinine [Mass/Vol] 0.70 mg/dL Normal 0.50 - 1.10 mg/dL [facility], [facility].; [facility], [facility] GFR/1.73 sq M.predicted among blacks MDRD (S/P/Bld) [Vol rate/Area] 120 mL/min/{1.73_m2} Normal [facility].; [facility], [facility] Glucose [Mass/Vol] 91 mg/dL Normal 65 - 99 mg/dL [facility].; [facility], [facility] Potassium [Moles/Vol] 4.2 mmol/L Normal 3.5 - 5.3 mmol/L [facility], [facility].; [facility], [facility]. Protein [Mass/Vol] 7.5 g/dL Normal 6.1 - 8.1 g/dL [facility], [facility].; [facility], [facility] Sodium [Moles/Vol] 138 mmol/L Normal 135 - 146 mmol/L [facility], [facility].; [facility], [facility]. Triglyceride [Mass/Vol] 96 mg/dL Normal [facility], [facility]; [facility], [facility] Urea nitrogen [Mass/Vol] 18 mg/dL Normal 7 - 25 mg/dL [facility], [facility].; [facility], [facility] No Panel Informationon 11-17 BUN/CREATININE RATIO NOT APPLICABLE Normal 6 - 22 [facility]; [facility], [facility] CHOL/HDLC RATIO 3.4 Normal [facility], [facility] eGFR NON-AFR. SAUDI ARABIAN 104 Normal [facility], [facility].; [facility], [facility] GLOBULIN 3.2 Normal 1.9 - 3.7 [facility], [facility].; [facility], [facility] NON HDL CHOLESTEROL 123 Normal [facility], [facility].; [facility], Inc. 174 mg/dL Normal [facility].; [facility] 51 mg/dL Normal [facility], [facility].; [facility] 96 mg/dL Normal [facility], [facility].; [facility] 104 Normal [facility].; [facility] 3.4 Normal [facility], [facility].; [facility] 123 Normal [facility], [facility].; [facility] 91 mg/dL Normal 65 - 99 mg/dL [facility], Inc.; [facility] 18 mg/dL Normal 7 - 25 mg/dL [facility], [facility].; [facility] 0.70 mg/dL Normal 0.50 - 1.10 mg/dL [facility], Inc.; [facility] 120 Normal [facility], [facility].; [facility] NOT APPLICABLE Normal 6 - 22 [facility], [facility].; [facility] 138 mmol/L Normal 135 - 146 mmol/L [facility], Inc.; [facility] 4.2 mmol/L Normal 3.5 - 5.3 mmol/L [facility], Inc.; [facility] 104 mmol/L Normal 98 - 110 mmol/L [facility], [facility].; [facility] 27 mmol/L Normal 20 - 32 mmol/L [facility], [facility].; [facility] 9.3 mg/dL Normal 8.6 - 10.2 mg/dL [facility].; [facility] 7.5 g/dL Normal 6.1 - 8.1 g/dL [facility], [facility].; [facility] 4.3 g/dL Normal 3.6 - 5.1 g/dL [facility], [facility].; [facility] 3.2 Normal 1.9 - 3.7 [facility].; [facility] 1.3 Normal 1.0 - 2.5 [facility].; [facility] 0.4 mg/dL Normal 0.2 - 1.2 mg/dL [facility], [facility].; [facility], [facility]. 85 U/L Normal 31 - 125 U/L [facility], [facility].; [facility], [facility]. 16 U/L Normal 10 - 35 U/L [facility], [facility].; [facility], [facility]. 18 U/L Normal 6 - 29 U/L [facility]ay [facility].; [facility], [facility]. Laboratory - Chemistry and C hemistry - challengeon 11-05-2019 Albumin [Mass/Vol] 4.4 g/dL Normal 3.6 - 5.1 g/dL [facility]ay [facility].; [facility], [facility]. Albumin/Globulin [Mass ratio] 1.5 {ratio} Normal 1.0 - 2.5 [facility]1Lay [facility].; [facility], [facility]. ALP [Catalytic activity/Vol] 93 U/L Normal 31 - 125 U/L [facility]1Lay [facility].; [facility], [facility] ALT [Catalytic activity/Vol] 15 U/L Normal 6 - 29 U/L [facility]1Lay [facility].; [facility], [employer]. AST [Catalytic activity/Vol] 12 U/L Normal 10 - 35 U/L [facility]1Lay [facility].; [facility], [facility]. Bilirubin [Mass/Vol] 0.4 mg/dL Normal 0.2 - 1 .2 mg/dL [facility], [facility].; [facility], [facility]. Calcium [Mass/Vol] 9.5 mg/dL Normal 8.6 - 10. 2 mg/dL [facility], [facility].; [facility], [facility]. Chloride [Moles/Vol] 103 mmol/L Normal 98 - 11 0 mmol/L [facility], [facility].; [facility], [facility]. Cholesterol [Mass/Vol] 192 mg/dL Normal [facility], [facility].; [facility], [facility]. Cholesterol in HDL [Mass/Vol] 49 mg/dL Abnormal [facility], [facility].; [facility] [employer], [facility]. Cholesterol in LDL [Mass/Vol] 120 mg/dL Abnormal [facility] [employer] [facility].; [facility], [facility]. CO2 [Moles/Vol] 28 mmol/L Normal 20 - 32 mmol/L [facility], [facility].; [facility], [facility]. Creatinine [Mass/Vol] 0.79 mg/dL Normal 0.50 - 1.10 mg/dL [facility], [facility].; [facility], [facility]. GFR/1.73 sq M.predicted among blacks MDRD (S/P/Bld) [Vol rate/Area] 105 mL/min/{1.73_m2} Normal [facility].; [facility], [facility] Glucose [Mass/Vol] 92 mg/dL Normal 65 - 99 mg/dL [facility].; [facility], [facility]. Potassium [Moles/Vol] 4.2 mmol/L Normal 3.5 - 5.3 mmol/L [facility], [facility].; [facility], [facility]. Protein [Mass/Vol] 7.4 g/dL Normal 6.1 - 8.1 g/dL [facility].; [facility], [facility]. Sodium [Moles/Vol] 138 mmol/L Normal 135 - 146 mmol/L [facility].; [facility], [facility]. Triglyceride [Mass/Vol] 121 mg/dL Normal [facility], [facility].; [facility], [facility]. TSH Qn 1.59 m[IU]/L Normal [facility]; [facility], [facility]. Urea nitrogen [Mass/Vol] 19 mg/dL Normal 7 - 25 mg/dL [facility], [facility].; [facility], [facility]. No Panel Informationon 11-04 BUN/CREATININE RATIO NOT APPLICABLE Normal 6 - 22 [facility].; [facility], [facility] CHOL/HDLC RATIO 3.9 Normal [facility], [facility].; [facility], Inc[facility] eGFR NON-AFR. SAUDI ARABIAN 90 Normal [facility], [facility].; [facility], [facility] GLOBULIN 3.0 Normal 1.9 - 3.7 [facility], [facility].; [facility], Inc[facility] NON HDL CHOLESTEROL 143 Abnormal [facility], [facility].; [facility], Inc[facility] 192 mg/dL Normal [facility], [facility].; [facility] 49 mg/dL Abnormal [facility].; [facility]. 121 mg/dL Normal [facility].; [facility] 120 Abnormal [facility].; [facility]. 3.9 Normal [facility].; [facility] [employer] 143 Abnormal [facility].; [facility]. 92 mg/dL Normal 65 - 99 mg/dL [facility], Inc.; [facility] [employer] 19 mg/dL Normal 7 - 25 mg/dL [facility], [facility].; [facility] 0.79 mg/dL Normal 0.50 - 1.10 mg/dL [facility], [facility].; [facility] 90 Normal [facility], [facility].; [facility]. 105 Normal [facility], [facility].; [employer], [employer] NOT APPLICABLE Normal 6 - 22 [facility].; [facility] [employer] 138 mmol/L Normal 135 - 146 mmol/L [facility].; [facility] [employer] 4.2 mmol/L Normal 3.5 - 5.3 mmol/L [facility].; [facility] [employer] 103 mmol/L Normal 98 - 110 mmol/L [facility], [facility].; [facility] [employer] 28 mmol/L Normal 20 - 32 mmol/L [facility], [facility].; [facility] [employer] 9.5 mg/dL Normal 8.6 - 10.2 mg/dL [facility], [facility].; [employer], [employer] 7.4 g/dL Normal 6.1 - 8.1 g/dL [facility], [facility].; [facility] [employer] 4.4 g/dL Normal 3.6 - 5.1 g/dL [facility], [facility].; [facility] [employer] 3.0 Normal 1.9 - 3.7 [facility], [facility].; [facility] [employer] 1.5 Normal 1.0 - 2.5 [facility], [employer].; [facility] [employer]. 0.4 mg/dL Normal 0.2 - 1.2 mg/dL [facility]1Lay [facility].; [facility], [facility]. 93 U/L Normal 31 - 125 U/L [facility], [facility].; [facility], [employer] 12 U/L Normal 10 - 35 U/L [facility], [facility].; [facility] [employer], [employer] 15 U/L Normal 6 - 29 U/L [facility]1Lay [facility].; [facility] [employer]. 1.59 {mIU/L} Normal [facility]1Lay [facility].; [facility], [employer]. Laboratory - Chemistry and C hemistry - challengeon 10-30-2018 Albumin [Mass/Vol] 4.5 g/dL Normal 3.6 - 5.1 g/dL [facility]1Lay [facility].; [facility], [employer]. Albumin/Globulin [Mass ratio] 1.4 {ratio} Normal 1.0 - 2.5 [facility]1Lay [facility].; [facility], [employer]. ALP [Catalytic activity/Vol] 108 U/L Normal 33 - 115 U/L [facility] [employer] [facility].; [facility], [employer]. ALT [Catalytic activity/Vol] 17 U/L Normal 6 - 29 U/L [facility] [employer] [facility].; [facility], [employer]. AST [Catalytic activity/Vol] 15 U/L Normal 10 - 30 U/L [facility] [employer] [facility].; [facility], [employer]. Bilirubin [Mass/Vol] 0.5 mg/dL Normal 0.2 - 1 .2 mg/dL [facility]ay [facility].; [facility], [employer]. Calcium [Mass/Vol] 9.5 mg/dL Normal 8.6 - 10. 2 mg/dL [facility] [employer] [facility].; [facility], [employer]. Chloride [Moles/Vol] 102 mmol/L Normal 98 - 11 0 mmol/L [facility]ay [facility].; [facility], [employer] Cholesterol [Mass/Vol] 191 mg/dL Normal [facility] [employer] [facility].; [facility], [facility] Cholesterol in HDL [Mass/Vol] 45 mg/dL Abnormal [facility] [employer] [facility].; [facility], [employer]. Cholesterol in LDL [Mass/Vol] 123 mg/dL Abnormal 0 - 100 mg/dL [facility].; [facility], [facility]. Cholesterol non HDL [Mass/Vol] 146 mg/dL Abnormal [facility].; [facility], [facility]. Cholesterol.total/Cho lesterol in HDL [Mass ratio] 4.2 {ratio} Normal [facility].; [facility], [facility] CO2 [Moles/Vol] 28 mmol/L Normal 20 - 32 mmol/L [facility].; [facility], [facility]. Creatinine [Mass/Vol] 0.72 mg/dL Normal 0.50 - 1.10 mg/dL [facility], [facility].; [facility], [facility]. GFR/1.73 sq M.predicted among blacks MDRD (S/P/Bld) [Vol rate/Area] 118 {ML/MIN/1.73M2} Normal [facility], [facility].; [facility], [facility]. GFR/1.73 sq M.predicted MDRD (S/P/Bld) [Vol rate/Area] 102 {ML/MIN/1.73M2} Normal [facility], [facility].; [facility], [facility]. Globulin (S) [Mass/Vol] 3.1 g/dL Normal 1.9 - 3.7 g/dL [facility], [facility].; [facility], [facility]. Glucose [Mass/Vol] 90 mg/dL Normal 65 - 99 mg/dL [facility].; [facility], [facility]. Potassium [Moles/Vol] 4.5 mmol/L Normal 3.5 - 5.3 mmol/L [facility].; [facility], [facility]. Protein [Mass/Vol] 7.6 g/dL Normal 6.1 - 8.1 g/dL [facility].; [facility], [facility]. Sodium [Moles/Vol] 138 mmol/L Normal 135 - 146 mmol/L [facility], [facility].; [facility], [facility]. Triglyceride [Mass/Vol] 118 mg/dL Normal [facility], [facility].; [facility], [facility]. Urea nitrogen [Mass/Vol] 15 mg/dL Normal 7 - 25 mg/dL [facility]1Lay [facility].; [facility], [facility]. Urea nitrogen/Creatinine [Mass ratio] 20.7 mg/mg Normal 6 - 22 [facility]1Lay [facility].; [facility], [employer]. Laboratory - Chemistry and C hemistry - challengeon 11-14-2017 Albumin [Mass/Vol] 4.3 g/dL Normal 3.6 - 5.1 g/dL [facility], [facility].; [facility], [facility] Albumin/Globulin [Mass ratio] 1.6 {ratio} Normal 1.0 - 2.5 [facility]1Lay [facility].; [facility]ay [facility]. ALP [Catalytic activity/Vol] 84 U/L Normal 33 - 115 U/L [facility]1Lay [facility].; [facility], [facility]. ALT [Catalytic activity/Vol] 14 U/L Normal 6 - 29 U/L [facility], [facility].; [facility], [employer]. AST [Catalytic activity/Vol] 13 U/L Normal 10 - 30 U/L [facility]1Lay [facility].; [facility], [facility]. Bilirubin [Mass/Vol] 0.4 mg/dL Normal 0.2 - 1 .2 mg/dL [facility], [facility].; [facility], [employer]. Calcium [Mass/Vol] 9.6 mg/dL Normal 8.6 - 10. 2 mg/dL [facility]1Lay [facility].; [facility], [facility]. Chloride [Moles/Vol] 105 mmol/L Normal 98 - 11 0 mmol/L [facility]1Lay [facility].; [facility], [facility]. Cholesterol [Mass/Vol] 172 mg/dL Normal [facility], [facility].; [facility], [employer]. Cholesterol in HDL [Mass/Vol] 47 mg/dL Abnormal [facility]1Lay [facility].; [facility], [facility]. Cholesterol in LDL [Mass/Vol] 106 mg/dL Abnormal 0 - 100 mg/dL [facility]1Lay [facility].; [facility], [employer]. Cholesterol non HDL [Mass/Vol] 125 mg/dL Normal [facility], [facility].; [facility], [facility]. Cholesterol.total/Cho lesterol in HDL [Mass ratio] 3.7 {ratio} Normal [facility]1Lay [facility].; [facility] CO2 [Moles/Vol] 23 mmol/L Normal 20 - 31 mmol/L [facility].; [facility], [facility] Creatinine [Mass/Vol] 0.75 mg/dL Normal 0.50 - 1.10 mg/dL [facility]; [facility], [facility]. GFR/1.73 sq M.predicted among blacks MDRD (S/P/Bld) [Vol rate/Area] 113 {ML/MIN/1.73M2} Normal [facility]; [facility], [facility] GFR/1.73 sq M.predicted MDRD (S/P/Bld) [Vol rate/Area] 98 {ML/MIN/1.73M2} Normal [facility]; [facility], [facility] Globulin (S) [Mass/Vol] 2.8 g/dL Normal 1.9 - 3.7 g/dL [facility]; [facility], [facility] Glucose [Mass/Vol] 94 mg/dL Normal 65 - 99 mg/dL [facility].; [facility], [facility] Potassium [Moles/Vol] 4.5 mmol/L Normal 3.5 - 5.3 mmol/L [facility]; [facility], [facility] Protein [Mass/Vol] 7.1 g/dL Normal 6.1 - 8.1 g/dL [facility]; [facility], [facility] Sodium [Moles/Vol] 137 mmol/L Normal 135 - 146 mmol/L [facility]; [facility], [facility] Triglyceride [Mass/Vol] 91 mg/dL Normal [facility]; [facility], [facility] Urea nitrogen [Mass/Vol] 21 mg/dL Normal 7 - 25 mg/dL [facility]; [facility], [facility] Urea nitrogen/Creatinine [Mass ratio] 27.5 mg/mg Abnormal 6 - 22 [facility]; [facility], [facility] Laboratory - Chemistry and C hemistry - challengeon 11-01-2016 Albumin [Mass/Vol] 4.2 g/dL Normal 3.6 - 5.1 g/dL [facility]; [facility] Albumin/Globulin [Mass ratio] 1.4 {ratio} Normal 1.0 - 2.5 [facility]; [facility] ALP [Catalytic activity/Vol] 82 U/L Normal 33 - 115 U/L [facility].; [facility] ALT [Catalytic activity/Vol] 22 U/L Normal 6 - 29 U/L [facility].; [facility] AST [Catalytic activity/Vol] 17 U/L Normal 10 - 30 U/L [facility]; [facility] Bilirubin [Mass/Vol] 0.3 mg/dL Normal 0.2 - 1 .2 mg/dL [facility]; [facility] Calcium [Mass/Vol] 9.2 mg/dL Normal 8.6 - 10. 2 mg/dL [facility]; [facility] Chloride [Moles/Vol] 108 mmol/L Normal 98 - 11 0 mmol/L [facility]; [facility] Cholesterol [Mass/Vol] 178 mg/dL Normal 125 - 200 mg/dL [facility]; [facility] Cholesterol in HDL [Mass/Vol] 48 mg/dL Normal [facility]; [facility]. Cholesterol in LDL [Mass/Vol] 104 mg/dL Normal [facility]; [facility] Cholesterol non HDL [Mass/Vol] 130 mg/dL Normal [facility]; [facility] Cholesterol.total/Cho lesterol in HDL [Mass ratio] 3.7 {ratio} Normal [facility].; [facility]ay [facility] CO2 [Moles/Vol] 22 mmol/L Normal 20 - 31 mmol/L [facility]; [facility], [facility] Creatinine [Mass/Vol] 0.64 mg/dL Normal 0.50 - 1.10 mg/dL [facility]; [facility]ay [facility] GFR/1.73 sq M.predicted among blacks MDRD (S/P/Bld) [Vol rate/Area] 128 {ML/MIN/1.73M2} Normal [facility], [facility].; [facility], [facility]. GFR/1.73 sq M.predicted MDRD (S/P/Bld) [Vol rate/Area] 110 {ML/MIN/1.73M2} Normal [facility], [facility].; [facility] Globulin (S) [Mass/Vol] 3.1 g/dL Normal 1.9 - 3.7 g/dL [facility], [facility].; [facility], [facility]. Glucose [Mass/Vol] 91 mg/dL Normal 65 - 99 mg/dL [facility], [facility].; [facility], [facility]. Potassium [Moles/Vol] 4.4 mmol/L Normal 3.5 - 5.3 mmol/L [facility], [facility].; [facility], [facility]. Protein [Mass/Vol] 7.3 g/dL Normal 6.1 - 8.1 g/dL [facility].; [facility], [facility]. Sodium [Moles/Vol] 138 mmol/L Normal 135 - 146 mmol/L [facility], [facility].; [facility], [facility]. Triglyceride [Mass/Vol] 132 mg/dL Normal [facility], [facility].; [employer] [facility], [facility]. Urea nitrogen [Mass/Vol] 17 mg/dL Normal 7 - 25 mg/dL [facility], [facility].; [facility], [facility]. Urea nitrogen/Creatinine [Mass ratio] 26.3 mg/mg Abnormal 6 - 22 [facility]ay [facility].; [facility], [facility]. Laboratory - Chemistry and C hemistry - challengeon 05-10-2016 TSH Qn 1.02 m[IU]/L Normal 0.34 - 5.60 {uIU/ml} [facility], [facility].; [facility], [facility]. Laboratory - Hematology and Cell countson 05-10-2016 Basophils (Bld) [#/Vol] 0.00 {3/UL} Normal 0.00 - 0.10 {3/UL} [facility], [facility].; [facility] [employer] Basophils/100 WBC (Bld) 0.7 % Normal 0.0 - 2.0 % [facility]ay [facility].; [employer] [facility]. CBC W Auto Differential panel (Bld) CBC Normal [facility]ay [facility].; [facility], [facility]. Eosinophils (Bld) [#/Vol] 0.10 {3/UL} Normal 0.00 - 0.50 {3/UL} [facility], [facility].; [facility], [facility]. Eosinophils/100 WBC (Bld) 2.1 % Normal 0.0 - 7.0 % [facility]ay [facility].; [facility] [employer] [facility], [facility]. Erythrocyte distribution width (RBC) [Ratio] 14.1 % Normal 12.0 - 15.6 % [facility]ay [facility].; [facility], [facility]. Hematocrit (Bld) [Volume fraction] 42.9 % Normal 34.0 - 46.0 % [facility]ay [facility].; [facility], [facility] Hemoglobin (Bld) [Mass/Vol] 14.7 g/dL Normal 12.0 - 16.0 g/dL [facility]ay [facility].; [facility], [facility]. Lymphocytes (Bld) [#/Vol] 1.50 {3/UL} Normal 0.80 - 2.80 {3/UL} [facility], [facility].; [facility], [facility]. Lymphocytes/100 WBC (Bld) 22.5 % Normal 20.0 - 45.0 % [employer] [facility].; [facility], [facility]. MCH (RBC) [Entitic mass] 28 pg Normal 27 - 33 pg [employer] [facility].; [facility], [facility]. MCHC (RBC) [Mass/Vol] 34 {X10_3} Normal 32 - 3 6 {X10_3} [employer] [facility].; [employer], [facility]. MCV (RBC) [Entitic vol] 82 fL Normal 80 - 99 fL [employer] [facility].; [facility], [facility]. Monocytes (Bld) [#/Vol] 0.70 {3/UL} Normal 0.20 - 1.00 {3/UL} [facility], [facility].; [employer] Monocytes/100 WBC (Bld) 9.7 % Normal 0.0 - 10.0 % [employer] [facility].; [employer]. Morphology Eddie (Bld) [Interp] N/A Normal [facility]ay [facility].; [facility]. Neutrophils (Bld) [#/Vol] 4.40 {3/UL} Normal 1.50 - 7.10 {3/UL} [facility].; [facility], [employer]. Neutrophils/100 WBC (Bld) 65.0 % Normal 46.0 - 76.0 % [facility].; [facility], [employer]. Platelet mean volume (Bld) [Entitic vol] 8.4 fL Normal 6.6 - 10.5 fL [facility].; [facility], [employer]. Platelets (Bld) [#/Vol] 285 {3/UL} Normal 150 - 450 {3/UL} [facility] [employer].; [facility], [employer]. RBC (Bld) [#/Vol] 5.22 {6/UL} Normal 4.10 - 5.3 0 {6/UL} [employer].; [facility], [employer]. WBC (Bld) [#/Vol] 6.8 {3/UL} Normal 4.5 - 10.8 {3/UL} [employer].; [employer]. No Panel Informationon 05-10 MANUAL DIFF N/A Normal [facility] [employer] [facility].; [employer]. N/A Normal [employer].; [employer]. Laboratory - Chemistry and C hemistry - challengeon 05-03-2016 Albumin [Mass/Vol] 4.5 g/dL Normal 3.4 - 4.8 g/dL [facility].; [facility], [employer]. Albumin [Mass/Vol] 1.4 g/dL Normal 0.9 - 1.6 [employer].; [employer], [employer]. ALP [Catalytic activity/Vol] 74 U/L Normal 38 - 126 U/L [employer] [facility].; [employer], [employer]. ALT [Catalytic activity/Vol] 23 U/L Normal 8 - 35 U/L [facility] [employer].; [employer]. ALT No additional P-5'-P [Catalytic activity/Vol] 23 U/L Normal 8 - 35 U/L [facility].; [facility]. Anion gap [Moles/Vol] 13 mmol/L Normal 10 - 20 mmol/L [facility].; [facility], [facility]. AST [Catalytic activity/Vol] 19 U/L Normal 13 - 39 U/L [facility].; [facility] Bilirubin [Mass/Vol] 0.6 mg/dL Normal 0.0 - 1 .5 mg/dL [facility].; [facility], [facility] Calcium [Mass/Vol] 9.9 mg/dL Normal 8.6 - 10. 2 mg/dL [facility]; [facility]. Chloride [Moles/Vol] 103 mmol/L Normal 98 - 10 7 mmol/L [facility].; [facility], [facility] Cholesterol [Mass/Vol] 192 mg/dL Normal 0 - 200 mg/dL [facility]; [facility], [facility]. Cholesterol in HDL [Mass or moles/Vol] 42 mg/dL Normal 40 - 60 mg/dL [facility].; [facility], [facility]. Cholesterol in LDL [Mass/Vol] 120 mg/dL Normal 0 - 129 mg/dL [facility].; [facility], [facility]. Cholesterol.total/Cho lesterol in HDL [Mass ratio] 4.6 {ratio} Normal 0.0 - 5.0 [facility]; [facility], [facility]. CO2 [Moles/Vol] 29.0 mmol/L Normal 21.0 - 31.0 mmol/L [facility].; [facility], [facility]. Comprehensive metabolic 2000 panel CMP with eGFR Normal [facility]; [facility], [facility] Creatinine [Mass/Vol] 0.8 mg/dL Normal 0.6 - 1.2 mg/dL [facility]; [facility], [facility]. GFR/1.73 sq M.predicted among blacks MDRD (S/P/Bld) [Vol rate/Area] mL/min/{1.73_m2} Normal 60 - 999 {ML/MINUTE} [facility], [facility].; [facility], [facility]. GFR/1.73 sq M.predicted MDRD (S/P/Bld) [Vol rate/Area] mL/min/{1.73_m2} Normal 60 - 999 {ML/MINUTE} [facility], [facility].; [employer] [facility], [facility] Globulin (S) [Mass/Vol] 3.3 g/dL Normal 1.5 - 3.8 g/dL [facility], [facility].; [facility] [employer] [facility], [facility]. Glucose [Mass/Vol] 100 mg/dL Normal 74 - 106 mg/dL [facility]ay [facility].; [facility], [facility]. Lipid 1996 panel LIPID PROFILE Normal [facility].; [facility], [facility] Potassium [Moles/Vol] 4.4 mmol/L Normal 3.5 - 5.1 mmol/L [facility], [facility].; [facility], [facility] Protein [Mass/Vol] 7.8 g/dL Normal 6.4 - 8.3 g/dL [facility]ay [facility].; [employer] [facility], [facility]. Sodium [Moles/Vol] 141 mmol/L Normal 136 - 145 mmol/L [facility]ay [facility].; [facility] [employer] [facility], [facility]. Triglyceride [Mass/Vol] 152 mg/dL Abnormal 0 - 150 mg/dL [facility], [facility].; [facility], [facility]. Urea nitrogen [Mass/Vol] 14 mg/dL Normal 6 - 20 mg/dL [facility]ay [facility].; [facility], [facility]. Urea nitrogen/Creatinine [Mass ratio] 18 {ratio} Normal 0 - 30 {ratio} [facility]ay [facility].; [employer] [facility] No Panel Informationon 05-03 AGE 41 {years} Normal [facility]ay [facility].; [facility], [employer]. 13 mmol/L Normal 10 - 20 mmol/L [facility], [facility].; [employer] [facility] [employer] 41 {years} Normal [facility], [facility].; [facility], [employer]. Laboratory - Chemistry and C hemistry - challengeon 10-20-2015 Albumin [Mass/Vol] 4.2 g/dL Normal 3.4 - 4.8 g/dL [facility].; [facility], [facility] Albumin [Mass/Vol] 1.4 g/dL Normal 0.9 - 1.6 [facility].; [facility], [facility]. ALP [Catalytic activity/Vol] 83 U/L Normal 38 - 126 U/L [facility].; [facility], [facility]. ALT [Catalytic activity/Vol] 16 U/L Normal 8 - 35 U/L [facility].; [facility], [facility] ALT No additional P-5'-P [Catalytic activity/Vol] 16 U/L Normal 8 - 35 U/L [facility].; [facility], [facility] Anion gap [Moles/Vol] 10 mmol/L Normal 10 - 20 mmol/L [facility].; [facility], [facility]. AST [Catalytic activity/Vol] 17 U/L Normal 13 - 39 U/L [facility].; [facility], [facility]. Bilirubin [Mass/Vol] 0.5 mg/dL Normal 0.0 - 1 .5 mg/dL [facility].; [facility], [facility]. Calcium [Mass/Vol] 9.5 mg/dL Normal 8.6 - 10. 2 mg/dL [facility].; [facility], [facility]. Chloride [Moles/Vol] 103 mmol/L Normal 98 - 10 7 mmol/L [facility].; [facility], [facility]. Cholesterol [Mass/Vol] 166 mg/dL Normal 0 - 200 mg/dL [facility].; [facility], [facility]. Cholesterol in HDL [Mass or moles/Vol] 42 mg/dL Normal 40 - 60 mg/dL [facility].; [facility], [facility]. Cholesterol in LDL [Mass/Vol] 103 mg/dL Normal 0 - 129 mg/dL [facility].; [facility], [facility]. Cholesterol.total/Cho lesterol in HDL [Mass ratio] 4.0 {ratio} Normal 0.0 - 5.0 [facility].; [facility], [facility]. CO2 [Moles/Vol] 27.0 mmol/L Normal 13.0 - 29.0 mmol/L [facility].; [facility], [facility] Comprehensive metabolic 2000 panel CMP with eGFR Normal [facility]; [facility], [facility] Creatinine [Mass/Vol] 0.7 mg/dL Normal 0.6 - 1.2 mg/dL [facility].; [facility], [facility] GFR/1.73 sq M.predicted among blacks MDRD (S/P/Bld) [Vol rate/Area] mL/min/{1.73_m2} Normal 60 - 999 {ML/MINUTE} [facility].; [facility], [facility]. GFR/1.73 sq M.predicted MDRD (S/P/Bld) [Vol rate/Area] mL/min/{1.73_m2} Normal 60 - 999 {ML/MINUTE} [facility].; [facility], [facility] Globulin (S) [Mass/Vol] 3.1 g/dL Normal 1.5 - 3.8 g/dL [facility].; [facility], [facility]. Glucose [Mass/Vol] 83 mg/dL Normal 74 - 106 mg/dL [facility]; [facility], [facility] Lipid 1996 panel LIPID PROFILE Normal [facility]; [facility], [facility] Potassium [Moles/Vol] 4.7 mmol/L Normal 3.5 - 5.1 mmol/L [facility]; [facility], [facility] Protein [Mass/Vol] 7.3 g/dL Normal 6.4 - 8.3 g/dL [facility]; [facility], [facility] Sodium [Moles/Vol] 135 mmol/L Abnormal 136 - 145 mmol/L [facility].; [facility], [facility] Triglyceride [Mass/Vol] 103 mg/dL Normal 0 - 150 mg/dL [facility].; [facility], [facility]. Urea nitrogen [Mass/Vol] 17 mg/dL Normal 6 - 20 mg/dL [facility]; [facility], [facility] Urea nitrogen/Creatinine [Mass ratio] 24 {ratio} Normal 0 - 30 {ratio} [facility] [employer]. No Panel Informationon 10-19 AGE 40 {years} Normal [facility]ay [facility].; [employer]. 10 mmol/L Normal 10 - 20 mmol/L [facility].; [employer] [facility], [employer]. 40 {years} Normal [facility].; [employer]. Laboratory - Chemistry and C hemistry - challengeon 04-21-2015 Albumin [Mass/Vol] 4.6 g/dL Normal 3.4 - 4.8 g/dL [facility].; [employer] [facility], [employer]. Albumin [Mass/Vol] 1.5 g/dL Normal 0.9 - 1.6 [facility].; [facility], [employer]. ALP [Catalytic activity/Vol] 90 U/L Normal 38 - 126 U/L [facility].; [facility], [employer]. ALT [Catalytic activity/Vol] 20 U/L Normal 8 - 35 U/L [facility] [employer] [facility], [employer]. ALT No additional P-5'-P [Catalytic activity/Vol] 20 U/L Normal 8 - 35 U/L [facility].; [employer], [employer]. Anion gap [Moles/Vol] 9 mmol/L Abnormal 10 - 20 mmol/L [facility]ay [facility].; [facility] [facility], [employer]. AST [Catalytic activity/Vol] 16 U/L Normal 13 - 39 U/L [employer] [facility].; [employer], [employer]. Bilirubin [Mass/Vol] 0.6 mg/dL Normal 0.0 - 1 .5 mg/dL [employer] [facility].; [facility], [employer]. Calcium [Mass/Vol] 9.8 mg/dL Normal 8.6 - 10. 2 mg/dL [employer].; [employer], [employer]. Chloride [Moles/Vol] 102 mmol/L Normal 98 - 10 7 mmol/L [employer] [facility], [employer].; [employer], [employer]. Cholesterol [Mass/Vol] 188 mg/dL Normal 0 - 200 mg/dL [employer] [facility] Cholesterol in HDL [Mass or moles/Vol] 44 mg/dL Normal 40 - 60 mg/dL [facility]; [facility] Cholesterol in LDL [Mass/Vol] 110 mg/dL Normal 0 - 129 mg/dL [facility]; [facility], [facility] Cholesterol.total/Cho lesterol in HDL [Mass ratio] 4.3 {ratio} Normal 0.0 - 5.0 [facility]; [facility] CO2 [Moles/Vol] 30.0 mmol/L Abnormal 13.0 - 29.0 mmol/L [facility]; [facility], [facility] Comprehensive metabolic 2000 panel CMP with eGFR Normal [facility]; [facility], [facility] Creatinine [Mass/Vol] 0.8 mg/dL Normal 0.6 - 1.2 mg/dL [facility]; [facility], [facility]. GFR/1.73 sq M.predicted among blacks MDRD (S/P/Bld) [Vol rate/Area] mL/min/{1.73_m2} Normal 60 - 999 {ML/MINUTE} [facility].; [facility], [facility]. GFR/1.73 sq M.predicted MDRD (S/P/Bld) [Vol rate/Area] mL/min/{1.73_m2} Normal 60 - 999 {ML/MINUTE} [facility].; [facility], [facility] Globulin (S) [Mass/Vol] 3.1 g/dL Normal 1.5 - 3.8 g/dL [facility]; [facility], [facility]. Glucose [Mass/Vol] 91 mg/dL Normal 74 - 106 mg/dL [facility]; [facility], [facility] Lipid 1996 panel LIPID PROFILE Normal [facility]; [facility], [facility] Potassium [Moles/Vol] 4.4 mmol/L Normal 3.5 - 5.1 mmol/L [facility]; [facility], [facility] Protein [Mass/Vol] 7.7 g/dL Normal 6.4 - 8.3 g/dL [facility].; [facility]. Sodium [Moles/Vol] 137 mmol/L Normal 136 - 145 mmol/L [facility]ay [facility].; [employer] [facility] Triglyceride [Mass/Vol] 168 mg/dL Abnormal 0 - 150 mg/dL [facility]ay [facility].; [facility], [employer] Urea nitrogen [Mass/Vol] 13 mg/dL Normal 6 - 20 mg/dL [facility]ay [facility].; [facility] Urea nitrogen/Creatinine [Mass ratio] 16 {ratio} Normal 0 - 30 {ratio} [facility]ay [facility].; [facility], [employer]. No Panel Informationon 04-21 AGE 40 {years} Normal [facility]ay [facility]; [facility], [employer] 9 mmol/L Abnormal 10 - 20 mmol/L [facility]ay [facility].; [facility], [employer] 41 {years} Normal [facility]1Lay [facility].; [employer] [facility] - Chemistry and C hemistry - challengeon 10-14-2014 Albumin [Mass/Vol] 4.4 g/dL Normal 3.4 - 4.8 g/dL [facility]ay [facility].; [employer] [facility], [facility] Work Phone: Albumin [Mass/Vol] 1.3 g/dL Normal 0.9 - 1.6 [facility]ay [facility].; [employer] Work Phone: ALP [Catalytic activity/Vol] 75 U/L Normal 38 - 126 U/L [facility]ay [facility].; [employer]. Work Phone: ALT [Catalytic activity/Vol] 18 U/L Normal 8 - 35 U/L [facility]ay [facility].; [employer]. Work Phone: AST [Catalytic activity/Vol] 14 U/L Normal 13 - 39 U/L [facility]ay [facility].; [employer] Work Phone: Bilirubin [Mass/Vol] 0.4 mg/dL Normal 0.0 - 1 .5 mg/dL [facility]; [facility]ay [facility] Work Phone: Calcium [Mass/Vol] 9.6 mg/dL Normal 8.6 - 10. 2 mg/dL [facility]; [facility]ay [facility] Work Phone: Chloride [Moles/Vol] 104 mmol/L Normal 98 - 10 7 mmol/L [facility]; [facility]ay [facility] Work Phone: Cholesterol [Mass/Vol] 170 mg/dL Normal 0 - 200 mg/dL [facility]; [facility] Work Phone: Cholesterol in HDL [Mass or moles/Vol] 41 mg/dL Normal 40 - 60 mg/dL [facility]; [facility]ay [facility] Work Phone: Cholesterol in LDL [Mass/Vol] 105 mg/dL Normal 0 - 129 mg/dL [facility]; [facility]ay [facility] Work Phone: Cholesterol.total/Cho lesterol in HDL [Mass ratio] 4.1 {ratio} Normal 0.0 - 5.0 [facility]; [facility]1Lay [facility] Work Phone: CO2 [Moles/Vol] 28.0 mmol/L Normal 13.0 - 29.0 mmol/L [facility]; [facility]ay [facility] Work Phone: Comprehensive metabolic 2000 panel CMP with eGFR Normal [facility]; [facility]ay [facility] Work Phone: Creatinine [Mass/Vol] 0.7 mg/dL Normal 0.6 - 1.2 mg/dL [facility]; [facility] Work Phone: GFR/1.73 sq M.predicted among blacks MDRD (S/P/Bld) [Vol rate/Area] mL/min/{1.73_m2} Normal 60 - 999 {ML/MINUTE} [facility]; [facility] Work Phone: GFR/1.73 sq M.predicted MDRD (S/P/Bld) [Vol rate/Area] mL/min/{1.73_m2} Normal 60 - 999 {ML/MINUTE} [facility]; [facility] Work Phone: Globulin (S) [Mass/Vol] 3.3 g/dL Normal 1.5 - 3.8 g/dL [facility]; [facility] Work Phone: Glucose [Mass/Vol] 85 mg/dL Normal 74 - 106 mg/dL [facility]; [facility] Work Phone: Lipid 1996 panel LIPID PROFILE Normal [facility]; [facility]ay [facility] Work Phone: Potassium [Moles/Vol] 4.4 mmol/L Normal 3.5 - 5.1 mmol/L [facility]; [facility] Work Phone: Protein [Mass/Vol] 7.7 g/dL Normal 6.4 - 8.3 g/dL [facility]; [facility] Work Phone: Sodium [Moles/Vol] 139 mmol/L Normal 136 - 145 mmol/L [facility]; [facility] Work Phone: Triglyceride [Mass/Vol] 122 mg/dL Normal 0 - 150 mg/dL [facility]; [facility] Work Phone: Urea nitrogen [Mass/Vol] 15 mg/dL Normal 6 - 20 mg/dL [facility]; [facility]ay [facility] Work Phone: Urea nitrogen/Creatinine [Mass ratio] 21 {ratio} Normal 0 - 30 {ratio} [facility]; [facility]ay [facility] Work Phone: No Panel Informationon 10-14 40 {years} Normal [facility].; [employer]. Work Phone: Laboratory - Chemistry and C hemistry - challengeon 04-17-2014 ALT No additional P-5'-P [Catalytic activity/Vol] 18 U/L Normal 8 - 35 U/L [facility]ay [facility].; [employer]. Cholesterol [Mass/Vol] 169 mg/dL Normal 0 - 200 mg/dL [facility]ay [facility].; [employer]. Cholesterol in HDL [Mass or moles/Vol] 43 mg/dL Normal 40 - 60 mg/dL [facility]ay [facility].; [employer] Cholesterol in LDL [Mass/Vol] 97 mg/dL Normal 0 - 129 mg/dL [facility]ay [facility].; [employer] [facility]. Cholesterol.total/Cho lesterol in HDL [Mass ratio] 3.9 {ratio} Normal 0.0 - 5.0 [facility]ay [facility].; [employer] Lipid 1996 panel LIPID PROFILE Normal [facility].; [employer]. Triglyceride [Mass/Vol] 146 mg/dL Normal 0 - 150 mg/dL [facility]ay [facility].; [employer]. Laboratory - Chemistry and C hemistry - challengeon 10-08-2013 Albumin [Mass/Vol] 4.2 g/dL Normal 3.4 - 4.8 g/dL [facility]ay [facility].; [facility], [employer]. Albumin [Mass/Vol] 1.3 g/dL Normal 0.9 - 1.6 [facility]ay [facility].; [employer]. ALP [Catalytic activity/Vol] 76 U/L Normal 38 - 126 U/L [facility]ay [facility].; [facility], [employer]. ALT [Catalytic activity/Vol] 15 U/L Normal 8 - 35 U/L [facility]ay [facility].; [facility], [employer]. ALT No additional P-5'-P [Catalytic activity/Vol] 15 U/L Normal 8 - 35 U/L [facility].; [employer]. AST [Catalytic activity/Vol] 13 U/L Normal 13 - 39 U/L [facility].; [facility], [facility]. Bilirubin [Mass/Vol] 0.5 mg/dL Normal 0.0 - 1 .5 mg/dL [facility].; [facility], [facility]. Calcium [Mass/Vol] 9.7 mg/dL Normal 8.6 - 10. 2 mg/dL [facility].; [facility], [facility] Chloride [Moles/Vol] 106 mmol/L Normal 98 - 10 7 mmol/L [facility].; [facility], [facility] Cholesterol [Mass/Vol] 170 mg/dL Normal 0 - 200 mg/dL [facility].; [facility], [facility]. Cholesterol in HDL [Mass or moles/Vol] 43 mg/dL Normal 40 - 60 mg/dL [facility].; [facility], [facility] Cholesterol in LDL [Mass/Vol] 103 mg/dL Normal 0 - 129 mg/dL [facility].; [facility], [facility] Cholesterol.total/Cho lesterol in HDL [Mass ratio] 4.0 {ratio} Normal 0.0 - 5.0 [facility]; [facility], [facility] CO2 [Moles/Vol] 30.0 mmol/L Abnormal 13.0 - 29.0 mmol/L [facility].; [facility], [facility]. Comprehensive metabolic 2000 panel CMP with eGFR Normal [facility]; [facility], [facility] Creatinine [Mass/Vol] 0.8 mg/dL Normal 0.6 - 1.2 mg/dL [facility].; [facility], [facility]. GFR/1.73 sq M.predicted among blacks MDRD (S/P/Bld) [Vol rate/Area] mL/min/{1.73_m2} Normal 60 - 999 {ML/MINUTE} [facility], [facility].; [facility], [facility]. GFR/1.73 sq M.predicted MDRD (S/P/Bld) [Vol rate/Area] mL/min/{1.73_m2} Normal 60 - 999 {ML/MINUTE} [facility], [facility].; [facility], [facility]. Globulin (S) [Mass/Vol] 3.3 g/dL Normal 1.5 - 3.8 g/dL [facility].; [facility], [facility] Glucose [Mass/Vol] 84 mg/dL Normal 74 - 106 mg/dL [facility]; [facility], [facility] Lipid 1996 panel LIPID PROFILE Normal [facility].; [facility], [facility] Potassium [Moles/Vol] 4.2 mmol/L Normal 3.5 - 5.1 mmol/L [facility]; [facility], [facility] Protein [Mass/Vol] 7.5 g/dL Normal 6.4 - 8.3 g/dL [facility]; [facility], [facility] Sodium [Moles/Vol] 138 mmol/L Normal 136 - 145 mmol/L [facility]; [facility], [facility] Triglyceride [Mass/Vol] 121 mg/dL Normal 0 - 150 mg/dL [facility].; [facility], [facility] Urea nitrogen [Mass/Vol] 15 mg/dL Normal 6 - 20 mg/dL [facility].; [employer] [facility], [facility] Urea nitrogen/Creatinine [Mass ratio] 19 {ratio} Normal 0 - 30 {ratio} [facility]1Lay [facility].; [employer] [facility]1Lay [facility] No Panel Informationon 10-08 AGE 38 {years} Normal [facility]; [facility], [facility] 38 {years} Normal [facility]1Lay [facility].; [employer] [facility], [facility] Laboratory - Chemistry and C hemistry - challengeon 04-02-2013 Albumin [Mass/Vol] 4.6 g/dL Normal 3.6 - 5.1 g/dL [facility].; [facility], [facility]. Albumin/Globulin [Mass ratio] 1.4 {ratio} Normal 1.0 - 2.5 [facility]1Lay [facility].; [facility], [facility]. ALP [Catalytic activity/Vol] 90 U/L Normal 33 - 115 U/L [facility]1Lay [facility].; [employer] [facility], [facility]. ALT [Catalytic activity/Vol] 16 U/L Normal 6 - 29 U/L [facility]1Lay [facility].; [facility], [employer] AST [Catalytic activity/Vol] 16 U/L Normal 10 - 30 U/L [facility].; [facility], [facility]. Bilirubin [Mass/Vol] 0.6 mg/dL Normal 0.2 - 1 .2 mg/dL [facility].; [facility], [facility]. Calcium [Mass/Vol] 9.7 mg/dL Normal 8.6 - 10. 2 mg/dL [facility].; [facility], [facility]. Chloride [Moles/Vol] 103 mmol/L Normal 98 - 11 0 mmol/L [facility].; [facility], [facility]. Cholesterol [Mass/Vol] 188 mg/dL Normal 125 - 200 mg/dL [facility].; [facility], [facility]. Cholesterol in HDL [Mass/Vol] 49 mg/dL Normal [facility].; [facility], [facility]. Cholesterol in LDL [Mass/Vol] 118 mg/dL Normal [facility].; [facility], [facility]. Cholesterol non HDL [Mass/Vol] 139 mg/dL Normal [facility].; [facility], [facility]. Cholesterol.total/Cho lesterol in HDL [Mass ratio] 3.8 {ratio} Normal [facility].; [facility], [facility]. CO2 [Moles/Vol] 25 mmol/L Normal 19 - 30 mmol/L [facility].; [facility], [facility]. Creatinine [Mass/Vol] 0.78 mg/dL Normal 0.50 - 1.10 mg/dL [facility], [facility].; [facility], [facility]. GFR/1.73 sq M.predicted among blacks MDRD (S/P/Bld) [Vol rate/Area] 111 {ML/MIN/1.73M2} Normal [facility].; [facility], [facility]. GFR/1.73 sq M.predicted MDRD (S/P/Bld) [Vol rate/Area] 96 {ML/MIN/1.73M2} Normal [facility], [facility].; [facility], [facility]. Globulin (S) [Mass/Vol] 3.3 g/dL Normal 1.9 - 3.7 g/dL [facility]; [facility] Glucose [Mass/Vol] 92 mg/dL Normal 65 - 99 mg/dL [facility]; [facility] Potassium [Moles/Vol] 4.5 mmol/L Normal 3.5 - 5.3 mmol/L [facility]; [facility] Protein [Mass/Vol] 7.9 g/dL Normal 6.1 - 8.1 g/dL [facility]; [facility] Sodium [Moles/Vol] 139 mmol/L Normal 135 - 146 mmol/L [facility]; [facility] Triglyceride [Mass/Vol] 103 mg/dL Normal [facility]; [facility] Urea nitrogen [Mass/Vol] 14 mg/dL Normal 7 - 25 mg/dL [facility]; [facility] Urea nitrogen/Creatinine [Mass ratio] 17.8 mg/mg Normal 6 - 22 [facility]; [facility] Laboratory - Chemistry and C hemistry - challengeon 08-16-2012 ALT [Catalytic activity/Vol] 21 U/L Normal 6 - 40 U/L [facility]; [facility] Cholesterol [Mass/Vol] 198 mg/dL Normal 125 - 200 mg/dL [facility]; [facility] Cholesterol in HDL [Mass/Vol] 40 mg/dL Abnormal [facility]; [facility] Cholesterol in LDL [Mass/Vol] 134 mg/dL Abnormal [facility]; [facility]. Cholesterol non HDL [Mass/Vol] 158 mg/dL Normal [facility]; [facility] Cholesterol.total/Cho lesterol in HDL [Mass ratio] 5.0 {ratio} Normal [facility]; [facility], [facility] Triglyceride [Mass/Vol] 119 mg/dL Normal [facility]; [facility] Laboratory - Chemistry and C hemistry - challengeon 06-30-2012 Bilirubin Ql (U) Negative Normal [facility] [employer]. Ketones Ql (U) Negative Normal [facility].; [employer]. pH (U) 5.5 [pH] Normal 4.6 - 8.0 [employer].; [employer]. Specific gravity (U) [Rel density] 1.025 Normal 1.001 - 1.025 [employer] Laboratory - Hematology and Cell countson 06-30-2012 Hemoglobin Ql (U) Negative Normal [employer].; [employer] Laboratory - Specimen inform ationon 06-30-2012 Appearance (U) concentrated Normal [facility] [employer]. Color (U) dark Yellow Normal [employer].; [employer] Laboratory - Urinalysison Glucose Test strip (U) [Mass/Vol] Negative Normal [employer].; [employer]. Leukocyte esterase Test strip Ql (U) Negative Normal [employer].; [employer]. Nitrite Ql (U) Negative Normal [facility].; [employer]. Protein Ql (U) 30 mg/dL Abnormal [facility].; [employer]. No Panel Informationon 06-30 UA - UROBILINOGEN 0.2 mg/dL Normal [employer].; [employer]. 0.2 mg/dL Normal [employer].; [employer] Laboratory - Chemistry and C hemistry - challengeon 06-12-2012 Bilirubin Ql (U) Negative Normal [facility] [employer]. Ketones Ql (U) Negative Normal [facility].; [employer], [employer]. pH (U) 5.5 [pH] Normal 4.6 - 8.0 [employer].; [employer]. Specific gravity (U) [Rel density] 1.020 Normal 1.001 - 1.025 [employer].; [employer] Laboratory - Hematology and Cell countson 06-12-2012 Hemoglobin Ql (U) Negative Normal [employer]; [employer] Laboratory - Microbiology an d Antimicrobial susceptibilityon 06-12-2012 Bacteria identified Cx Nom (U) SEE NOTE Normal [employer].; [employer] Laboratory - Specimen inform ationon 06-12-2012 Appearance (U) Clear Normal [facility]; [employer]. Color (U) Clear Normal [employer]; [employer] Specimen source Nom (Unsp spec) URINE-NOT GIVEN Normal [employer]; [employer] Laboratory - Urinalysison Glucose Test strip (U) [Mass/Vol] Negative Normal [employer]; [employer]. Leukocyte esterase Test strip Ql (U) Negative Normal [employer]; [employer]. Nitrite Ql (U) Negative Normal [facility] [employer].; [employer]. Protein Ql (U) Negative Normal [facility].; [employer]. No Panel Informationon 06-12 UA - UROBILINOGEN 0.2 mg/dL Normal [employer]; [employer]. 0.2 mg/dL Normal [employer].; [employer]. Laboratory - Chemistry and C hemistry - challengeon 02-07-2012 Albumin [Mass/Vol] 4.5 g/dL Normal 3.6 - 5.1 g/dL [facility]ay [facility]; [employer] Albumin/Globulin [Mass ratio] 1.5 {ratio} Normal 1.0 - 2.1 [employer]; [employer]. ALP [Catalytic activity/Vol] 72 U/L Normal 33 - 115 U/L [employer].; [employer]. ALT [Catalytic activity/Vol] 21 U/L Normal 6 - 40 U/L [employer].; [employer] AST [Catalytic activity/Vol] 20 U/L Normal 10 - 30 U/L [facility].; [facility], [facility]. Bilirubin [Mass/Vol] 0.6 mg/dL Normal 0.2 - 1 .2 mg/dL [facility].; [facility], [facility]. Calcium [Mass/Vol] 9.8 mg/dL Normal 8.6 - 10. 2 mg/dL [facility]; [facility] Chloride [Moles/Vol] 106 mmol/L Normal 98 - 11 0 mmol/L [facility].; [facility], [facility]. Cholesterol [Mass/Vol] 178 mg/dL Normal 125 - 200 mg/dL [facility]; [facility], [facility]. Cholesterol in HDL [Mass/Vol] 43 mg/dL Abnormal [facility]; [facility], [facility] Cholesterol in LDL [Mass/Vol] 118 mg/dL Normal [facility].; [facility], [facility] Cholesterol non HDL [Mass/Vol] 135 mg/dL Normal [facility].; [facility], [facility]. Cholesterol.total/Cho lesterol in HDL [Mass ratio] 4.1 {ratio} Normal [facility]; [facility], [facility]. CO2 [Moles/Vol] 26 mmol/L Normal 21 - 33 mmol/L [facility].; [facility], [facility]. Creatinine [Mass/Vol] 0.80 mg/dL Normal 0.50 - 1.10 mg/dL [facility].; [facility], [facility]. GFR/1.73 sq M.predicted among blacks MDRD (S/P/Bld) [Vol rate/Area] 109 {ML/MIN/1.73M2} Normal [facility].; [facility], [facility]. GFR/1.73 sq M.predicted MDRD (S/P/Bld) [Vol rate/Area] 94 {ML/MIN/1.73M2} Normal [facility], [facility].; [facility], [facility]. Globulin (S) [Mass/Vol] 3.1 g/dL Normal 2.2 - 3.9 g/dL [facility].; [facility], [facility]. Glucose [Mass/Vol] 79 mg/dL Normal 65 - 99 mg/dL [facility].; [facility], [facility] Potassium [Moles/Vol] 4.5 mmol/L Normal 3.5 - 5.3 mmol/L [facility], [facility].; [facility], [facility] Protein [Mass/Vol] 7.6 g/dL Normal 6.2 - 8.3 g/dL [facility].; [facility], [facility] Sodium [Moles/Vol] 138 mmol/L Normal 135 - 146 mmol/L [facility], [facility].; [facility], [facility] Triglyceride [Mass/Vol] 85 mg/dL Normal [facility]; [facility], [facility] Urea nitrogen [Mass/Vol] 14 mg/dL Normal 7 - 25 mg/dL [facility], [facility].; [facility], [facility] Urea nitrogen/Creatinine [Mass ratio] 17.3 mg/mg Normal 6 - 22 [facility]; [facility], [facility] Laboratory - Chemistry and C hemistry - challengeon 07-01-2010 Albumin [Mass/Vol] 3.9 g/dL Normal 3.5 - 5.0 g/dL [facility].; [facility], [facility] Albumin/Globulin [Mass ratio] 0.9 {ratio} Normal [facility]; [facility], [facility] ALP [Catalytic activity/Vol] 86 U/L Normal 50 - 136 U/L [facility].; [facility], [facility]. ALT [Catalytic activity/Vol] 32 mmol/L Normal 12 - 49 mmol/L [facility].; [facility], [facility]. AST [Catalytic activity/Vol] 13 U/L Abnormal 15 - 37 U/L [facility], [facility].; [facility], [facility]. Bilirubin [Mass/Vol] 0.40 mg/dL Normal 0.3 - 1 .0 mg/dL [facility], [facility].; [facility], [facility] Calcium [Mass/Vol] 9.1 mg/dL Normal 8.2 - 10. 2 mg/dL [facility], [facility].; [facility] [employer] Chloride [Moles/Vol] 106 mmol/L Normal 98 - 11 0 mmol/L [facility].; [facility], [facility]. Cholesterol [Mass/Vol] 178 mg/dL Normal 0 - 200 mg/dL [facility].; [facility], [facility]. Cholesterol in HDL [Mass/Vol] 41 mg/dL Normal 40 - 60 mg/dL [facility].; [facility], [facility] Cholesterol in LDL [Mass/Vol] 104 mg/dL Abnormal 0 - 100 mg/dL [facility].; [facility], [facility] Cholesterol in VLDL [Mass/Vol] 33 mg/dL Normal [facility]; [facility] [place], [facility] CO2 [Moles/Vol] 25.0 mmol/L Normal [facility]; [facility] [place], [facility] Creatinine [Mass/Vol] 0.8 mg/dL Normal 0.6 - 1.4 mg/dL [facility] [place], [facility].; [facility] [place], [facility]. Globulin (S) [Mass/Vol] 4.3 g/dL Abnormal 1.5 - 3.8 g/dL [facility] [place], [facility].; [facility] [place], [facility]. Glucose [Mass/Vol] 88 mg/dL Normal 75 - 105 mg/dL [facility].; [facility] [place], [facility]. Insulin Qn 36.1 u[IU]/mL Abnormal 0.0 - 24.9 [facility].; [facility] [place], [facility]. Potassium [Moles/Vol] 4.4 mmol/L Normal 3.50 - 5.00 meq/L [facility].; [facility] [place], [facility]. Protein [Mass/Vol] 8.2 g/dL Normal 6.4 - 8.2 g/dL [facility], [facility].; [facility] [place], [facility]. Sodium [Moles/Vol] 141 mmol/L Normal 136 - 145 mmol/L [facility] [place], [facility].; [facility] [place], [facility]. Triglyceride [Mass/Vol] 164 mg/dL Abnormal 0 - 150 mg/dL [facility] [place], [facility].; [facility] [place], [facility]. TSH Qn 1.01 mU/mL Normal 0.35 - 5.5 mU/mL [facility] [place]1[facility].; [employer] [facility]. Urea nitrogen [Mass/Vol] 14 mg/dL Normal 7.0 - 20.0 mg/dL [facility] [place]1[facility].; [employer] [facility], [facility] Urea nitrogen/Creatinine [Mass ratio] 17.5 mg/mg Normal 0 - 30 [facility] [place]1[facility].; [facility], [employer]. Laboratory - Hematology and Cell countson 07-01-2010 HbA1c (Bld) [Mass fraction] 5.4 % Normal 4.6 - 7.1 % [facility] [place]1[facility].; [employer] [facility] No Panel Informationon 07-01 CORTISOL TOTAL, SERUM 10.45 Normal [facility].; [facility] [place]1[facility]. GFR 86 Normal [facility] [place]1[facility].; [employer] [facility], [employer]. GFR2 104 Normal [facility] [place]1[facility].; [facility], [employer]. 104 Normal [facility] [place]1[facility].; [facility], [employer]. 86 Normal [facility] [place]1[facility].; [employer]. 10.45 Normal [facility] [place]1[facility].; [employer]. Laboratory - Hematology and Cell countson 06-29-2010 Erythrocyte distribution width (RBC) [Ratio] 13.7 % Normal 12.0 - 15.6 % [facility] [place]1[facility].; [facility], [employer]. Hematocrit (Bld) [Volume fraction] 40.5 % Normal 34 - 44 % [facility] [place]1[facility].; [facility], [facility] Hemoglobin (Bld) [Mass/Vol] 13.8 g/dL Normal 11.5 - 14.2 g/dL [facility] [place]1[facility].; [facility], [facility]. MCH (RBC) [Entitic mass] 29.6 pg Normal 27 - 33 pg [facility] [place]1[facility].; [facility], [employer]. MCHC (RBC) [Mass/Vol] 34.1 g/dL Normal 32 - 36 g/dL H [facility].; [employer] [facility], [facility]. MCV (RBC) [Entitic vol] 86.8 fL Normal 80 - 99 fL [facility] [place]1[facility].; [employer]. Platelet mean volume (Bld) [Entitic vol] 8.6 fL Normal 6.6 - 10.5 fL [facility].; [employer] [facility]. Platelets (Bld) [#/Vol] 263 10*9{Cells}/L Normal 150 - 450 10*9{Cells}/L [facility] [place]1[facility].; [facility] [place]1[facility]. RBC (Bld) [#/Vol] 4.67 10*6/uL Normal 4.10 - 5.3 0 10*6/uL [facility] [place]1[facility].; [facility] [place]1[facility]. WBC (Bld) [#/Vol] 5.9 10*9{Cells}/L Normal 4.5 - 10.8 10*9{Cells}/L [facility] [place]1[facility].; [employer] [facility]. No Panel Informationon 06-29 13.8 g/dL Normal 11.5 - 14.2 g/dL [facility] [place]1[facility].; [employer]. Laboratory - Chemistry and C hemistry - challengeon 06-16-2010 Bilirubin Ql (U) Negative [facility] [employer] Ketones Ql (U) Negative Normal [facility].; [employer]. pH (U) 6.0 [pH] Normal 4.6 - 8.0 [facility] [place]1[facility].; [employer]. Specific gravity (U) [Rel density] 1.010 Normal 1.001 - 1.025 [facility] [place]1[facility].; [employer]. Laboratory - Hematology and Cell countson 06-16-2010 Hemoglobin Ql (U) small Abnormal [facility] [employer] [facility].; [employer]. Laboratory - Specimen inform ationon 06-16-2010 Appearance (U) cloudy Abnormal [facility].; [employer]. Color (U) yellow Normal [facility] [employer] [facility].; [employer]. Laboratory - Urinalysison Glucose Test strip (U) [Mass/Vol] Negative Normal [facility] [employer].; [employer]. Leukocyte esterase Test strip Ql (U) small Abnormal [employer].; [employer]. Nitrite Ql (U) Negative Normal [facility].; [employer]. Protein Ql (U) trace Normal [facility].; [employer]. No Panel Informationon 06-16 UA - UROBILINOGEN .2 Normal [employer].; [employer]. .2 Normal [employer].; [employer]. Laboratory - Chemistry and C hemistry - challengeon 04-06-2010 ALT [Catalytic activity/Vol] 19 U/L Normal 6 - 40 U/L [employer].; [employer]. Cholesterol [Mass/Vol] 172 mg/dL Normal 125 - 200 mg/dL [employer].; [employer]. Cholesterol in HDL [Mass/Vol] 38 mg/dL Abnormal [employer].; [employer]. Cholesterol in LDL [Mass/Vol] 106 mg/dL Normal [employer].; [employer]. Cholesterol.total/Cho lesterol in HDL [Mass ratio] 4.5 {ratio} Normal [employer].; [employer]. Triglyceride [Mass/Vol] 138 mg/dL Normal [employer].; [employer]. Vital Signs Date Time Vital Sign Value Performing Clinician Facility 12-13-2024 07:27-0400 Body height 180.34 cm Arline Bucio LPN [employer] [facility].; [employer]. 12-13-2024 07:27-0400 Body mass index (BMI) [Ratio] 45.89 kg/m2 Arline Bucio LPN [employer] [facility].; [employer]. 12-13-2024 07:27-0400 Body surface area Derived from formula 2.61 m2 Arline Bucio LPN [employer] [facility].; [employer]. 12-13-2024 07:27-0400 Body weight 149.23 kg Arline Bucio LPN [employer] [facility].; [employer]. 12-13-2024 07:27-0400 Diastolic blood pressure 88 mm[Hg] Arline Bucio LPN [facility] [place], [facility].; [employer] [facility], [facility] 12-13-2024 07:27-0400 Diastolic blood pressure 78 mm[Hg] Reagan Stovall MD Work Phone: [facility] [place], [facility].; [employer] 12-13-2024 07:27-0400 Heart rate 78 /min Arline Bucio LPN [facility] [place], [facility].; [employer] 12-13-2024 07:27-0400 Systolic blood pressure 160 mm[Hg] Arline Bucio LPN [facility] [place], [facility].; [employer] 12-13-2024 07:27-0400 Systolic blood pressure 124 mm[Hg] Reagan Stovall MD Work Phone: [facility] [place], [facility].; [employer] 05-30-2024 06:59-0500 Body height 180.34 cm Frantz Manley LPN [facility] [place], [facility].; [employer] 05-30-2024 06:59-0500 Body mass index (BMI) [Ratio] 45.61 kg/m2 Frantz Vineet [employer] [facility] [place], [facility].; [employer] 05-30-2024 06:59-0500 Body surface area Derived from formula 2.6 m2 Frantz Manley LPN [facility] [place], [facility].; [employer] 05-30-2024 06:59-0500 Body weight 148.33 kg Frantz Manley LPN [facility] [place], [facility].; [employer] 05-30-2024 06:59-0500 Diastolic blood pressure 91 mm[Hg] Frantz Manley LPN [facility] [place], [facility].; [employer] Comment on above: Patient Position: Sitting; Cuff Location : Left Arm; Cuff Size: Standard 05-30-2024 06:59-0500 Heart rate 84 /min Frantz Manley LPN [facility] [place], [facility].; [employer] Comment on above: Pattern: Regular 05-30-2024 06:59-0500 Systolic blood pressure 148 mm[Hg] Frantz Manley LPN [facility].; [employer]. Comment on above: Patient Position: Sitting; Cuff Location : Left Arm; Cuff Size: Standard 12-12-2023 08:26-0400 Body height 180.34 cm Reagan Stovall MD Work Phone: [employer].; [employer]. 12-12-2023 08:26-0400 Body mass index (BMI) [Ratio] 45.33 kg/m2 Reagan Stovall MD Work Phone: [facility].; [employer] [facility]. 12-12-2023 08:26-0400 Body surface area Derived from formula 2.59 m2 Reagan Stovall MD Work Phone: [employer].; [employer]. 12-12-2023 08:26-0400 Body weight 147.42 kg Reagan Stovall MD Work Phone: [employer].; [employer] [facility]. 12-12-2023 08:26-0400 Diastolic blood pressure 90 mm[Hg] Reagan Stovall MD Work Phone: [employer].; [employer]. Comment on above: Patient Position: Sitting; Cuff Location : Left Arm; Cuff Size: Standard 12-12-2023 08:26-0400 Heart rate 69 /min Reagan Stovall MD Work Phone: [employer]; [employer]. Comment on above: Pattern: Regular 12-12-2023 08:26-0400 Systolic blood pressure 144 mm[Hg] Reagan Stovall MD Work Phone: [employer].; [employer]. Comment on above: Patient Position: Sitting; Cuff Location : Left Arm; Cuff Size: Standard 06-13-2023 08:06-0500 Diastolic blood pressure 80 mm[Hg] Reagan Stovall MD Work Phone: [employer].; [employer]. Comment on above: Patient Position: Sitting; Cuff Location : Left Arm; Cuff Size: Standard 06-13-2023 08:06-0500 Systolic blood pressure 128 mm[Hg] Reagan Stovall MD Work Phone: [facility].; [employer] [facility]. Comment on above: Patient Position: Sitting; Cuff Location : Left Arm; Cuff Size: Standard 06-13-2023 07:50-0500 Body height 180.34 cm Edyta Tai [facility], [employer].; [employer]. 06-13-2023 07:50-0500 Body mass index (BMI) [Ratio] 45.61 kg/m2 [facility] Abida [facility], [employer].; [employer]. 06-13-2023 07:50-0500 Body surface area Derived from formula 2.6 m2 Nathalia Abida [facility], [employer].; [employer]. 06-13-2023 07:50-0500 Body weight 148.33 kg Edyta Tai [facility], [employer].; [employer]. 06-13-2023 07:50-0500 Diastolic blood pressure 73 mm[Hg] NathaliaKeren Tai [facility], [employer].; [employer]. Comment on above: Patient Position: Sitting; Cuff Location : Left Arm; Cuff Size: Large 06-13-2023 07:50-0500 Heart rate 77 /min Nathalia Stuckey [facility], [employer].; [employer]. Comment on above: Pattern: Regular 06-13-2023 07:50-0500 Systolic blood pressure 153 mm[Hg] Nathalia Stuckey [facility] [employer] [facility], [facility].; [employer]. Comment on above: Patient Position: Sitting; Cuff Location : Left Arm; Cuff Size: Large 12-13-2022 07:57-0400 Body height 180.34 cm NathaliaKeren Tai [facility], Inc.; [employer]. 12-13-2022 07:57-0400 Body mass index (BMI) [Ratio] 45.33 kg/m2 Nathalia Stuckey [facility], [employer].; [facility] [place], [facility]. 12-13-2022 07:57-0400 Body surface area Derived from formula 2.59 m2 Edyta Tai [facility], [facility].; [facility] [place], [facility] 12-13-2022 07:57-0400 Body weight 147.42 kg Edyta Tai [facility], [facility].; [employer] [facility], [facility] 12-13-2022 07:57-0400 Diastolic blood pressure 85 mm[Hg] Edyta Tai [facility], [facility].; [employer], [employer]. Comment on above: Patient Position: Sitting; Cuff Location : Left Arm; Cuff Size: Large 12-13-2022 07:57-0400 Heart rate 67 /min Edyta Tai [facility], [facility].; [facility], [employer]. Comment on above: Pattern: Regular 12-13-2022 07:57-0400 Systolic blood pressure 128 mm[Hg] Edyta Tai [facility], [facility].; [employer], [employer]. Comment on above: Patient Position: Sitting; Cuff Location : Left Arm; Cuff Size: Large 10-25-2022 14:02-0400 Body height 180.34 cm Margarita Peña RN [facility] [place], [facility].; [employer] [facility], [employer]. 10-25-2022 14:02-0400 Body mass index (BMI) [Ratio] 45.05 kg/m2 Margarita Peña RN [facility] [place], [facility].; [employer] [facility], [employer]. 10-25-2022 14:02-0400 Body surface area Derived from formula 2.59 m2 Margarita Peña RN [facility] [place], [facility].; [employer], [employer]. 10-25-2022 14:02-0400 Body weight 146.51 kg Margarita Peña RN [employer] [facility], [facility].; [employer], [employer]. 10-25-2022 14:02-0400 Diastolic blood pressure 64 mm[Hg] Margarita Peña RN [facility] [place], [employer].; [employer], [employer]. Comment on above: Patient Position: Sitting; Cuff Location : Left Arm; Cuff Size: Large 10-25-2022 14:02-0400 Heart rate 82 /min Margarita Peña RN [employer].; [employer]. Comment on above: Pattern: Regular 10-25-2022 14:02-0400 Inhaled oxygen concentration 21 % Margarita Peña RN [employer].; [employer]. Comment on above: Room air 10-25-2022 14:02-0400 Inhaled oxygen concentration 20 % Margarita Peña RN [employer].; [employer]. Comment on above: Room air 10-25-2022 14:02-0400 SaO2% (BldA) [Mass fraction] 98 % Margarita Peña RN [employer].; [employer]. 10-25-2022 14:02-0400 Systolic blood pressure 139 mm[Hg] Margarita Peña RN [employer].; [employer]. Comment on above: Patient Position: Sitting; Cuff Location : Left Arm; Cuff Size: Large 06-07-2022 07:56-0500 Body height 180.34 cm Reagan Stovall MD Work Phone: [employer].; [employer]. 06-07-2022 07:56-0500 Body mass index (BMI) [Ratio] 45.05 kg/m2 Reagan Stovall MD Work Phone: [employer].; [employer]. 06-07-2022 07:56-0500 Body surface area Derived from formula 2.59 m2 Reagan Stovall MD Work Phone: [employer].; [employer]. 06-07-2022 07:56-0500 Body weight 146.51 kg Reagan Stovall MD Work Phone: [employer].; [employer]. 06-07-2022 07:56-0500 Diastolic blood pressure 80 mm[Hg] Reagan Stovall MD Work Phone: [facility].; [employer] [facility]. Comment on above: Patient Position: Sitting; Cuff Location : Left Arm; Cuff Size: Large 06-07-2022 07:56-0500 Heart rate 88 /min Reagan Stovall MD Work Phone: [facility].; [employer]. Comment on above: Pattern: Regular 06-07-2022 07:56-0500 Systolic blood pressure 135 mm[Hg] Reagan Stovall MD Work Phone: [facility].; [employer] [facility]. Comment on above: Patient Position: Sitting; Cuff Location : Left Arm; Cuff Size: Large 03-29-2022 10:45-0400 Body height 180.34 cm Edyta Tai [facility], [facility].; [employer] [facility], [employer]. 03-29-2022 10:45-0400 Body mass index (BMI) [Ratio] 45.05 kg/m2 Edyta Tai [facility].; [facility] [place], [facility]. 03-29-2022 10:45-0400 Body surface area Derived from formula 2.59 m2 [facility] Abida [facility], [facility].; [employer] [facility], [employer]. 03-29-2022 10:45-0400 Body weight 146.[address] [facility].; [employer] [facility], [employer]. 03-29-2022 10:45-0400 Diastolic blood pressure 119 mm[Hg] Edyta Tai [facility].; [employer] [facility]. Comment on above: Patient Position: Sitting; Cuff Location : Left Arm; Cuff Size: Large 03-29-2022 10:45-0400 Heart rate 74 /min NathaliaKeren Tai [facility], [facility].; [employer] [facility]. Comment on above: Pattern: Regular 03-29-2022 10:45-0400 Systolic blood pressure 175 mm[Hg] Edyta Tai [facility], [facility].; [employer]. Comment on above: Patient Position: Sitting; Cuff Location : Left Arm; Cuff Size: Large 12-29-2021 11:09-0400 Body height 180.[address] Reagan Stovall Work Phone: [facility] Work Phone: 12-29-2021 11:09-0400 Body mass index (BMI) [Ratio] 44.6 kg/m2 Dr. Reagan Stovall Work Phone: [facility] Work Phone: 12-29-2021 11:09-0400 Body temperature 97.4 [degF] Dr. Reagan Stovall Work Phone: [facility] Work Phone: 12-29-2021 11:09-0400 Body weight 145.[address] Reagan Stovall Work Phone: [facility] Work Phone: 12-29-2021 11:09-0400 Diastolic blood pressure 101 mm[Hg] Dr. Reagan Stovall Work Phone: [facility] Work Phone: 12-29-2021 11:09-0400 Heart rate 79 /min Dr. Reagan Stovall Work Phone: [facility] Work Phone: 12-29-2021 11:09-0400 Respiratory rate 16 /min Dr. Reagan Stovall Work Phone: [facility] Work Phone: 12-29-2021 11:09-0400 SaO2% (BldA) [Mass fraction] 98 % Dr. Reagan Stovall Work Phone: [facility] Work Phone: 12-29-2021 11:09-0400 Systolic blood pressure 155 mm[Hg] Dr. Reagan Stovall Work Phone: [facility] Work Phone: 12-03-2021 07:10-0400 Body height 180.34 cm Reagan Stovall MD Work Phone: [facility] [place], [facility].; [employer]. 12-03-2021 07:10-0400 Body mass index (BMI) [Ratio] 44.77 kg/m2 Reagan Stovall MD Work Phone: [employer]. 12-03-2021 07:10-0400 Body surface area Derived from formula 2.58 m2 Reagan Stovall MD Work Phone: [employer]. 12-03-2021 07:10-0400 Body weight 145.61 kg Reagan Stovall MD Work Phone: [employer]. 12-03-2021 07:10-0400 Diastolic blood pressure 80 mm[Hg] Reagan Stovall MD Work Phone: [employer]. Comment on above: Patient Position: Sitting; Cuff Location : Left Arm; Cuff Size: Large 12-03-2021 07:10-0400 Heart rate 76 /min Reagan Stovall MD Work Phone: [employer]. Comment on above: Pattern: Regular 12-03-2021 07:10-0400 Systolic blood pressure 132 mm[Hg] Reagan Stovall MD Work Phone: [employer]. Comment on above: Patient Position: Sitting; Cuff Location : Left Arm; Cuff Size: Large 05-25-2021 08:32-0500 Body height 180.34 cm Reagan Stovall MD Work Phone: [employer]. 05-25-2021 08:32-0500 Body mass index (BMI) [Ratio] 44.35 kg/m2 Reagan Stovall MD Work Phone: [employer]. 05-25-2021 08:32-0500 Body surface area Derived from formula 2.57 m2 Reagan Stovall MD Work Phone: [employer]. 05-25-2021 08:32-0500 Body weight 144.24 kg Reagan Stovall MD Work Phone: [facility] [employer]. 05-25-2021 08:32-0500 Diastolic blood pressure 72 mm[Hg] Reagan Stovall MD Work Phone: [facility].; [employer]. Comment on above: Patient Position: Sitting; Cuff Location : Left Arm; Cuff Size: Large 05-25-2021 08:32-0500 Heart rate 87 /min Reagan Stovall MD Work Phone: [employer] [facility].; [employer]. Comment on above: Pattern: Regular 05-25-2021 08:32-0500 Systolic blood pressure 128 mm[Hg] Reagan Stovall MD Work Phone: [facility].; [employer]. Comment on above: Patient Position: Sitting; Cuff Location : Left Arm; Cuff Size: Large 11-24-2020 08:16-0400 Body height 180.34 cm [facility], [facility].; [employer]. 11-24-2020 08:16-0400 Body mass index (BMI) [Ratio] 45.33 kg/m2 [facility], [facility].; [employer]. 11-24-2020 08:16-0400 Body surface area Derived from formula 2.59 m2 [facility], [facility].; [employer]. 11-24-2020 08:16-0400 Body weight 147.42 kg [facility] [employer] [facility], [facility].; [employer]. 11-24-2020 08:16-0400 Diastolic blood pressure 82 mm[Hg] [facility], [facility].; [employer]. Comment on above: Patient Position: Sitting; Cuff Location : Left Arm; Cuff Size: Large 11-24-2020 08:16-0400 Heart rate 90 /min Edyta Tai LPN [facility] [place] [employer] [facility], [employer]. Comment on above: Pattern: Regular 11-24-2020 08:16-0400 Inhaled oxygen concentration 21 % Edyta Tai [facility].; [employer] [facility], [facility] Comment on above: Room air 11-24-2020 08:16-0400 Inhaled oxygen concentration 20 % Edyta Tai [facility], [facility].; [employer] [facility], [employer]. Comment on above: Room air 11-24-2020 08:16-0400 SaO2% (BldA) [Mass fraction] 99 % Edyta Tai [facility], [facility].; [employer] [facility], [employer]. 11-24-2020 08:16-0400 Systolic blood pressure 140 mm[Hg] Edyta Tai [facility], [facility] [facility].; [employer] [facility], [employer]. Comment on above: Patient Position: Sitting; Cuff Location : Left Arm; Cuff Size: Large 06-16-2020 08:31-0500 Body height 180.34 cm Margarita Peña RN [facility], [facility].; [employer] [facility], [employer]. 06-16-2020 08:31-0500 Body mass index (BMI) [Ratio] 45.89 kg/m2 Margarita Peña RN [facility], [facility].; [employer] [facility], [employer]. 06-16-2020 08:31-0500 Body surface area Derived from formula 2.61 m2 Margarita Peña RN [facility], [facility].; [employer] [facility], [facility]. 06-16-2020 08:31-0500 Body weight 149.23 kg Margarita Peña RN [facility], [facility].; [employer], [employer]. 06-16-2020 08:31-0500 Diastolic blood pressure 84 mm[Hg] Margarita Peña RN [facility], [facility].; [employer], [employer]. Comment on above: Patient Position: Sitting; Cuff Location : Right Arm; Cuff Size: Large 06-16-2020 08:31-0500 Heart rate 83 /min Margarita Peña RN [employer].; [employer]. Comment on above: Pattern: Regular 06-16-2020 08:31-0500 Systolic blood pressure 133 mm[Hg] Margarita Peña RN [employer].; [employer]. Comment on above: Patient Position: Sitting; Cuff Location : Right Arm; Cuff Size: Large 11-19-2019 08:31-0400 Body height 180.34 cm Reagan Stovall MD Work Phone: [employer]; [employer]. 11-19-2019 08:31-0400 Body mass index (BMI) [Ratio] 44.21 kg/m2 Reagan Stovall MD Work Phone: [employer]; [employer]. 11-19-2019 08:31-0400 Body surface area Derived from formula 2.57 m2 Reagan Stovall MD Work Phone: [employer]; [employer]. 11-19-2019 08:31-0400 Body temperature 97.4 [degF] Reagan Stovall MD Work Phone: [employer].; [employer]. Comment on above: Method: Tympanic 11-19-2019 08:31-0400 Body weight 143.79 kg Reagan Stovall MD Work Phone: [employer]; [employer]. 11-19-2019 08:31-0400 Diastolic blood pressure 82 mm[Hg] Reagan Stovall MD Work Phone: [employer].; [employer]. Comment on above: Patient Position: Sitting; Cuff Location : Right Arm; Cuff Size: Large 11-19-2019 08:31-0400 Heart rate 78 /min Reagan Stovall MD Work Phone: [employer].; [employer]. Comment on above: Pattern: Regular 11-19-2019 08:31-0400 Systolic blood pressure 130 mm[Hg] Reagan Stovall MD Work Phone: [employer].; [employer]. Comment on above: Patient Position: Sitting; Cuff Location : Right Arm; Cuff Size: Large 05-21-2019 07:51-0500 Body height 180.34 cm Margarita Peña RN [employer].; [employer]. 05-21-2019 07:51-0500 Body mass index (BMI) [Ratio] 42.54 kg/m2 Margarita Peña RN [employer].; [employer]. 05-21-2019 07:51-0500 Body surface area Derived from formula 2.52 m2 Margarita Peña RN [employer].; [employer]. 05-21-2019 07:51-0500 Body weight 138.35 kg Margarita Peña RN [employer].; [employer]. 05-21-2019 07:51-0500 Diastolic blood pressure 84 mm[Hg] Margarita Peña RN [employer].; [employer]. Comment on above: Patient Position: Sitting; Cuff Location : Right Arm; Cuff Size: Large 05-21-2019 07:51-0500 Heart rate 82 /min Margarita Peña RN [employer].; [employer]. Comment on above: Pattern: Regular 05-21-2019 07:51-0500 Systolic blood pressure 132 mm[Hg] Margarita Peña RN [employer].; [employer]. Comment on above: Patient Position: Sitting; Cuff Location : Right Arm; Cuff Size: Large 11-13-2018 07:59-0400 Body height 180.34 cm Reagan Stovall MD Work Phone: [employer] 11-13-2018 07:59-0400 Body mass index (BMI) [Ratio] 43.1 kg/m2 Reagan Stovall MD Work Phone: [employer] 11-13-2018 07:59-0400 Body surface area Derived from formula 2.54 m2 Reagan Stovall MD Work Phone: [employer].; [employer] 11-13-2018 07:59-0400 Body weight 140.16 kg Reagan Stovall MD Work Phone: [employer].; [employer]. 11-13-2018 07:59-0400 Diastolic blood pressure 80 mm[Hg] Reagan Stovall MD Work Phone: [employer].; [employer]. Comment on above: Patient Position: Sitting; Cuff Location : Left Arm; Cuff Size: Standard 11-13-2018 07:59-0400 Heart rate 85 /min Reagan Stovall MD Work Phone: [employer].; [employer]. Comment on above: Pattern: Regular 11-13-2018 07:59-0400 Systolic blood pressure 132 mm[Hg] Reagan Stovall MD Work Phone: [employer].; [employer]. Comment on above: Patient Position: Sitting; Cuff Location : Left Arm; Cuff Size: Standard 10-30-2018 09:37-0400 Body height 180.34 cm Neilee L Vess [employer], [employer].; [employer]. 10-30-2018 09:37-0400 Body mass index (BMI) [Ratio] 43.38 kg/m2 Neilee L Vess [employer]. 10-30-2018 09:37-0400 Body surface area Derived from formula 2.54 m2 Neilee L Vess [employer], [employer].; [employer]. 10-30-2018 09:37-0400 Body temperature 96.6 [degF] Neilee L Vess [employer]. Comment on above: Method: Tympanic 10-30-2018 09:37-0400 Body weight 141.07 kg Neilee L Vess [employer] 10-30-2018 09:37-0400 Diastolic blood pressure 76 mm[Hg] Neilee L Vess FI[employer]. Comment on above: Patient Position: Sitting; Cuff Location : Left Arm; Cuff Size: Standard 10-30-2018 09:37-0400 Heart rate 84 /min Nestephanie Vanessa Whaley [employer] [facility] [employer] Comment on above: Pattern: Regular 10-30-2018 09:37-0400 Inhaled oxygen concentration 21 % Neilee L Vess [employer] Comment on above: Room air 10-30-2018 09:37-0400 Inhaled oxygen concentration 20 % Neilee L Vess [employer], [employer]. Comment on above: Room air 10-30-2018 09:37-0400 SaO2% (BldA) [Mass fraction] 99 % Nestephanie L Vess [employer] [facility], [employer]. 10-30-2018 09:37-0400 Systolic blood pressure 142 mm[Hg] Nestephanie L Vess [employer]. Comment on above: Patient Position: Sitting; Cuff Location : Left Arm; Cuff Size: Standard 09-01-2018 14:52-0500 Body height 180.34 cm Margarita Peña RN [facility], [employer].; [employer]. 09-01-2018 14:52-0500 Body mass index (BMI) [Ratio] 44.21 kg/m2 Margarita Peña RN [facility], [employer].; [employer]. 09-01-2018 14:52-0500 Body surface area Derived from formula 2.57 m2 Margarita Peña RN [employer]. 09-01-2018 14:52-0500 Body temperature 98.2 [degF] Margarita Peña RN [employer].; [employer]. Comment on above: Method: Tympanic 09-01-2018 14:52-0500 Body weight 143.79 kg Margarita Peña RN [employer].; [employer]. 09-01-2018 14:52-0500 Diastolic blood pressure 65 mm[Hg] Margarita Peña RN [employer]. Comment on above: Patient Position: Sitting; Cuff Location : Left Arm; Cuff Size: Large 09-01-2018 14:52-0500 Heart rate 87 /min Margarita Peña RN [employer].; [employer]. Comment on above: Pattern: Regular 09-01-2018 14:52-0500 Inhaled oxygen concentration 21 % Margarita Peña RN [employer].; [employer]. Comment on above: Room air 09-01-2018 14:52-0500 Inhaled oxygen concentration 20 % Margarita Peña RN [employer].; [employer]. Comment on above: Room air 09-01-2018 14:52-0500 SaO2% (BldA) [Mass fraction] 97 % Margarita Peña RN [employer].; [employer]. 09-01-2018 14:52-0500 Systolic blood pressure 145 mm[Hg] Margarita Peña RN [employer]. Comment on above: Patient Position: Sitting; Cuff Location : Left Arm; Cuff Size: Large 11-21-2017 08:02-0400 Body height 180.34 cm Carmencita Moya LPN [employer]. 11-21-2017 08:02-0400 Body mass index (BMI) [Ratio] 42.82 kg/m2 Carmencita Moya LPN [employer]. 11-21-2017 08:02-0400 Body surface area Derived from formula 2.53 m2 Carmencita Moya LPN [employer]. 11-21-2017 08:02-0400 Body weight 139.26 kg Carmencita Moya LPN [employer]. 11-21-2017 08:02-0400 Diastolic blood pressure 82 mm[Hg] Carmencita Moya LPN [employer].; [employer]. Comment on above: Patient Position: Sitting; Cuff Location : Left Arm; Cuff Size: Standard 11-21-2017 08:02-0400 Heart rate 76 /min Carmencita Moya LPN [employer]. Comment on above: Pattern: Regular 11-21-2017 08:02-0400 Systolic blood pressure 136 mm[Hg] Carmencita Moya LPN [employer]. Comment on above: Patient Position: Sitting; Cuff Location : Left Arm; Cuff Size: Standard 05-23-2017 08:15-0500 Body height 182.88 cm Reagan Stovall MD Work Phone: [employer]. 05-23-2017 08:15-0500 Body mass index (BMI) [Ratio] 41.5 kg/m2 Reagan Stovall MD Work Phone: [employer]. 05-23-2017 08:15-0500 Body surface area Derived from formula 2.55 m2 Reagan Stovall MD Work Phone: [employer]. 05-23-2017 08:15-0500 Body weight 138.8 kg Reaagn Stovall MD Work Phone: [employer].; [employer]. 05-23-2017 08:15-0500 Diastolic blood pressure 78 mm[Hg] Reagan Stovall MD Work Phone: [employer]. Comment on above: Patient Position: Sitting; Cuff Location : Left Arm; Cuff Size: Standard 05-23-2017 08:15-0500 Heart rate 76 /min Reagan Stovall MD Work Phone: [employer]. Comment on above: Pattern: Regular 05-23-2017 08:15-0500 Systolic blood pressure 128 mm[Hg] Reagan Stovall MD Work Phone: [employer]. Comment on above: Patient Position: Sitting; Cuff Location : Left Arm; Cuff Size: Standard 11-08-2016 08:06-0400 Body weight 139.26 kg Reagan Stovall MD Work Phone: [facility] [employer]. 11-08-2016 08:06-0400 Diastolic blood pressure 82 mm[Hg] Reagan Stovall MD Work Phone: [facility] [facility] [employer]. Comment on above: Patient Position: Sitting; Cuff Location : Left Arm; Cuff Size: Standard 11-08-2016 08:06-0400 Heart rate 72 /min Reagan Stovall MD Work Phone: [facility] [facility] [employer]. Comment on above: Pattern: Regular 11-08-2016 08:06-0400 Systolic blood pressure 132 mm[Hg] Reagan Stovall MD Work Phone: [facility] [facility].; [employer]. Comment on above: Patient Position: Sitting; Cuff Location : Left Arm; Cuff Size: Standard 10-06-2016 08:15-0400 Body height 180.34 cm Edyta Veliz Abida [employer] [facility], Inc.; [employer] 10-06-2016 08:15-0400 Body mass index (BMI) [Ratio] 42.82 kg/m2 Nathalia Stuckey [employer] [facility], Inc.; [employer] 10-06-2016 08:15-0400 Body surface area Derived from formula 2.53 m2 NathaliaKeren Tai [employer] AD[employer]ER [employer] [facility], Inc.; [employer], [employer]. 10-06-2016 08:15-0400 Body temperature 97.9 [degF] NathaliaKeren Tai [employer] AD[employer]ER [employer] [facility], [employer]. Comment on above: Method: Tympanic 10-06-2016 08:15-0400 Body weight 139.26 kg NathaliaKeren Tai [employer]ER [employer] [facility], Inc.; [employer] 10-06-2016 08:15-0400 Diastolic blood pressure 84 mm[Hg] Edyta Tai [employer], [employer]. Comment on above: Patient Position: Sitting; Cuff Location : Left Arm; Cuff Size: Large 10-06-2016 08:15-0400 Heart rate 94 /min Edyta Tai [employer] [facility], Inc.; [employer] Comment on above: Pattern: Regular 10-06-2016 08:15-0400 Systolic blood pressure 138 mm[Hg] Edyta Tai [employer] Comment on above: Patient Position: Sitting; Cuff Location : Left Arm; Cuff Size: Large 05-10-2016 08:55-0500 Body weight 139.71 kg Carmencita Moya LPN [employer] 05-10-2016 08:55-0500 Diastolic blood pressure 82 mm[Hg] Carmencita Moya LPN [employer] Comment on above: Patient Position: Sitting; Cuff Location : Left Arm; Cuff Size: Large 05-10-2016 08:55-0500 Heart rate 74 /min Carmencita Moya LPN [employer], [employer]. Comment on above: Pattern: Regular 05-10-2016 08:55-0500 Systolic blood pressure 136 mm[Hg] Carmencita Moya LPN [employer] Comment on above: Patient Position: Sitting; Cuff Location : Left Arm; Cuff Size: Large 11-03-2015 08:11-0400 Body weight 137.89 kg Carmencita Moya LPN [employer] 11-03-2015 08:11-0400 Diastolic blood pressure 86 mm[Hg] Carmencita Moya LPN [employer], [employer]. Comment on above: Patient Position: Sitting; Cuff Location : Left Arm; Cuff Size: Standard 11-03-2015 08:11-0400 Heart rate 79 /min Carmencita Moya LPN [employer]. Comment on above: Pattern: Regular 11-03-2015 08:11-0400 Systolic blood pressure 133 mm[Hg] Carmencita Moya FI[employer] AD[employer]ER [facility], Inc.; [employer] [facility], [employer]. Comment on above: Patient Position: Sitting; Cuff Location : Left Arm; Cuff Size: Standard 10-03-2015 08:15-0400 Body height 180.34 cm Andreea Bradshawnishant HERNANDEZ [facility], Inc.; [facility], [employer]. 10-03-2015 08:15-0400 Body mass index (BMI) [Ratio] 42.26 kg/m2 Andreea Jerod [facility], [facility].; [facility] [employer] 10-03-2015 08:15-0400 Body surface area Derived from formula 2.52 m2 [facility]akb Newsome [facility], [facility].; [facility], [employer]. 10-03-2015 08:15-0400 Body temperature 97 [degF] Andreea Wenishant [facility], Inc.; [employer], [employer]. Comment on above: Method: Tympanic 10-03-2015 08:15-0400 Body weight 137.44 kg Andreea Wenishant HERNANDEZ [facility], Inc.; [facility], [employer]. 10-03-2015 08:15-0400 Diastolic blood pressure 81 mm[Hg] Andreea Jerod [facility], [facility].; [facility], [employer]. Comment on above: Patient Position: Sitting; Cuff Location : Left Arm; Cuff Size: Standard 10-03-2015 08:15-0400 Heart rate 68 /min Andreeakb Newsome LPN [facility], Inc.; [employer]. Comment on above: Pattern: Regular 10-03-2015 08:15-0400 Inhaled oxygen concentration 21 % Andreea Newsome [facility], Inc.; [employer], [employer]. Comment on above: Room air 10-03-2015 08:15-0400 Inhaled oxygen concentration 20 % Andreea Newsome LPN [facility], Inc.; [employer]. Comment on above: Room air 10-03-2015 08:15-0400 SaO2% (BldA) [Mass fraction] 97 % Andreea Newsome LPN [employer] [facility].; [employer]. 10-03-2015 08:15-0400 Systolic blood pressure 133 mm[Hg] Andreea Newsome LPN [employer] [facility].; [employer]. Comment on above: Patient Position: Sitting; Cuff Location : Left Arm; Cuff Size: Standard 04-28-2015 08:24-0400 Body weight 135.17 kg Reagan Stovall MD Work Phone: [employer]. 04-28-2015 08:24-0400 Diastolic blood pressure 82 mm[Hg] Reagan Stovall MD Work Phone: [employer].; [employer]. Comment on above: Patient Position: Sitting; Cuff Location : Left Arm; Cuff Size: Standard 04-28-2015 08:24-0400 Heart rate 80 /min Reagan Stovall MD Work Phone: [employer].; [employer]. Comment on above: Pattern: Regular 04-28-2015 08:24-0400 Systolic blood pressure 127 mm[Hg] Reagan Stovall MD Work Phone: [employer]. Comment on above: Patient Position: Sitting; Cuff Location : Left Arm; Cuff Size: Standard 11-18-2014 11:12-0400 Body height 180.34 cm Delmi Vincent RN Work Phone: [employer]. 11-18-2014 11:12-0400 Body mass index (BMI) [Ratio] 41.56 kg/m2 Delmi Vincent RN Work Phone: [employer].; [employer]. 11-18-2014 11:12-0400 Body surface area Derived from formula 2.5 m2 Delmi Vincent RN Work Phone: [employer]. 11-18-2014 11:12-0400 Body weight 135.17 kg Delmi Vincent RN Work Phone: [facility] [employer] [facility] [employer]. 11-18-2014 11:12-0400 Diastolic blood pressure 89 mm[Hg] Delmi Vincent RN Work Phone: [facility] [employer] [facility] [employer]. Comment on above: Patient Position: Sitting; Cuff Location : Right Arm; Cuff Size: Large 11-18-2014 11:12-0400 Heart rate 70 /min Delmi Vincent RN Work Phone: [employer]. Comment on above: Pattern: Regular 11-18-2014 11:12-0400 Systolic blood pressure 142 mm[Hg] Delmi Vincent RN Work Phone: [employer].; [employer]. Comment on above: Patient Position: Sitting; Cuff Location : Right Arm; Cuff Size: Large 10-21-2014 09:35-0400 Body height 180.34 cm Lilo Arrington LPN [employer] [facility], [facility].; [employer], [employer]. 10-21-2014 09:35-0400 Body mass index (BMI) [Ratio] 40.86 kg/m2 Lilo Arrington LPN [employer] [facility], Inc.; [employer], [employer]. 10-21-2014 09:35-0400 Body surface area Derived from formula 2.48 m2 Lilo Arrington LPN [employer] [facility], Inc.; [employer], [facility]. 10-21-2014 09:35-0400 Body weight 132.9 kg Lilo Arrington LPN [facility], [facility].; [employer]. 10-21-2014 09:35-0400 Diastolic blood pressure 86 mm[Hg] Lilo Arrington LPN [employer] [facility], [employer].; [employer], [employer]. Comment on above: Patient Position: Sitting; Cuff Location : Right Arm; Cuff Size: Large 10-21-2014 09:35-0400 Heart rate 80 /min Lilo Arrington LPN [employer] [facility], Inc[employer]. Comment on above: Pattern: Regular 10-21-2014 09:35-0400 Systolic blood pressure 131 mm[Hg] Lilo Arrington [facility], Inc.; [employer] [facility], [employer]. Comment on above: Patient Position: Sitting; Cuff Location : Right Arm; Cuff Size: Large 04-22-2014 09:00-0400 Body height 180.34 cm Nathalia Abida [facility], Inc.; [employer] [facility], [employer]. 04-22-2014 09:00-0400 Body mass index (BMI) [Ratio] 41.42 kg/m2 [facility], [facility].; [employer] [facility], [facility]. 04-22-2014 09:00-0400 Body surface area Derived from formula 2.5 m2 [facility], [facility].; [employer] [facility], [employer]. 04-22-2014 09:00-0400 Body weight 134.72 kg [facility], [facility].; [facility], [employer]. 04-22-2014 09:00-0400 Diastolic blood pressure 71 mm[Hg] [facility] Abida [facility], Inc.; [employer], [employer]. Comment on above: Patient Position: Sitting; Cuff Location : Left Arm; Cuff Size: Large 04-22-2014 09:00-0400 Heart rate 79 /min [facility] Abida [facility], Inc.; [employer], [employer]. Comment on above: Pattern: Regular 04-22-2014 09:00-0400 Systolic blood pressure 121 mm[Hg] [facility] Abida [facility], Inc.; [employer]. Comment on above: Patient Position: Sitting; Cuff Location : Left Arm; Cuff Size: Large 10-15-2013 09:37-0400 Body temperature 96.2 [degF] Carmencita Moya [facility], Inc.; [employer], [employer]. 10-15-2013 09:37-0400 Body weight 127.01 kg Carmencita Moya [facility], Inc.; [employer], [employer]. 10-15-2013 09:37-0400 Diastolic blood pressure 82 mm[Hg] Carmencita Moya FIRE ADJUSTER [facility].; [employer] [facility]. Comment on above: Patient Position: Sitting; Cuff Location : Left Arm; Cuff Size: Standard 10-15-2013 09:37-0400 Heart rate 96 /min Carmencita Moya [facility].; [employer]. Comment on above: Pattern: Regular 10-15-2013 09:37-0400 Systolic blood pressure 115 mm[Hg] Carmencita Moya [facility].; [employer]. Comment on above: Patient Position: Sitting; Cuff Location : Left Arm; Cuff Size: Standard 04-09-2013 08:45-0400 Body weight 127.92 kg Reagan Stovall MD Work Phone: [facility].; [facility] [employer] [facility]. 04-09-2013 08:45-0400 Diastolic blood pressure 85 mm[Hg] Reagan Stovall MD Work Phone: [facility].; [employer]. Comment on above: Patient Position: Sitting; Cuff Location : Left Arm; Cuff Size: Standard 04-09-2013 08:45-0400 Heart rate 70 /min Reagan Stovall MD Work Phone: [facility].; [employer]. Comment on above: Pattern: Regular 04-09-2013 08:45-0400 Systolic blood pressure 134 mm[Hg] Reagan Stovall MD Work Phone: [facility].; [employer]. Comment on above: Patient Position: Sitting; Cuff Location : Left Arm; Cuff Size: Standard 08-23-2012 09:25-0500 Body height 180.34 cm [facility], [facility].; [employer] 08-23-2012 09:25-0500 Body mass index (BMI) [Ratio] 40.59 kg/m2 [facility], [facility].; [facility], [employer]. 08-23-2012 09:25-0500 Body surface area Derived from formula 2.47 m2 [facility], Inc.; [employer] 08-23-2012 09:25-0500 Body weight 132 kg Edyta Tai [facility] [employer] [facility], [facility].; [employer] 08-23-2012 09:25-0500 Diastolic blood pressure 85 mm[Hg] Edyta Tai [facility], [facility].; [employer] Comment on above: Patient Position: Sitting; Cuff Location : Left Arm; Cuff Size: Large 08-23-2012 09:25-0500 Heart rate 72 /min Edyta Tai [facility], Inc.; [employer] Comment on above: Pattern: Regular 08-23-2012 09:25-0500 Systolic blood pressure 132 mm[Hg] Edyta [facility], [facility].; [employer] Comment on above: Patient Position: Sitting; Cuff Location : Left Arm; Cuff Size: Large 06-30-2012 09:55-0500 Body height 180.34 cm Lilo Arrington LPN [employer] [facility], Inc.; [employer] 06-30-2012 09:55-0500 Body mass index (BMI) [Ratio] 39.47 kg/m2 [facility]ilo [facility]rington [facility], [facility].; [employer] 06-30-2012 09:55-0500 Body surface area Derived from formula 2.44 m2 Lilo Arrington LPN [employer] [facility], Inc.; [employer] 06-30-2012 09:55-0500 Body temperature 96.2 [degF] Lilo Arrington LPN [employer] [facility], Inc.; [employer], [employer] [employer]. Comment on above: Method: Tympanic 06-30-2012 09:55-0500 Body weight 128.37 kg Lilo Arrington LPN [employer] [facility], [facility] [employer] 06-30-2012 09:55-0500 Diastolic blood pressure 76 mm[Hg] Lilo Arrington LPN [employer] [facility] [employer], [employer]. Comment on above: Patient Position: Sitting; Cuff Location : Left Arm; Cuff Size: Standard 06-30-2012 09:55-0500 Heart rate 72 /min Lilo Arrington [facility], [facility] [employer], [employer]. Comment on above: Pattern: Regular 06-30-2012 09:55-0500 Systolic blood pressure 121 mm[Hg] Lilo Arrington [facility] [employer] Comment on above: Patient Position: Sitting; Cuff Location : Left Arm; Cuff Size: Standard 06-12-2012 14:51-0500 Body temperature 97.4 [degF] Carmencita Moya [facility] [employer] 06-12-2012 14:51-0500 Body weight 130.64 kg Carmencita Moya [facility] [employer], [employer]. 06-12-2012 14:51-0500 Diastolic blood pressure 90 mm[Hg] Carmencita Moya [facility] [employer], [employer]. Comment on above: Patient Position: Sitting; Cuff Location : Left Arm; Cuff Size: Standard 06-12-2012 14:51-0500 Heart rate 85 /min Carmencita Moya [employer] [facility], Inc.; [employer], [employer]. Comment on above: Pattern: Regular 06-12-2012 14:51-0500 Systolic blood pressure 139 mm[Hg] Carmencita Moya [facility] [employer], [employer]. Comment on above: Patient Position: Sitting; Cuff Location : Left Arm; Cuff Size: Standard 02-21-2012 09:00-0400 Body height 180.34 cm Edyta Veliz Luxora [facility], [employer] 02-21-2012 09:00-0400 Body mass index (BMI) [Ratio] 39.05 kg/m2 [facility] [employer] [facility], [facility].; [employer], [employer]. 02-21-2012 09:00-0400 Body surface area Derived from formula 2.43 m2 [facility] [employer], [employer]. 02-21-2012 09:00-0400 Body weight 127.01 kg NathaliaKeren Tai [facility].; [employer]. 02-21-2012 09:00-0400 Diastolic blood pressure 85 mm[Hg] Edyta Tai [facility] [employer] [facility] [employer], [employer]. Comment on above: Patient Position: Sitting; Cuff Location : Left Arm; Cuff Size: Large 02-21-2012 09:00-0400 Heart rate 65 /min Edyta Tai [facility] [employer] [facility], [facility] [employer], [employer]. Comment on above: Pattern: Regular 02-21-2012 09:00-0400 Systolic blood pressure 128 mm[Hg] Edyta Tai [facility] [employer] [facility] [employer], [employer]. Comment on above: Patient Position: Sitting; Cuff Location : Left Arm; Cuff Size: Large 04-23-2011 13:39-0400 Body temperature 97.8 [degF] Carmencita Moya [facility] [employer] [facility] [employer] 04-23-2011 13:39-0400 Body weight 122.08 kg Carmencita Jhony Griffin [facility] [employer] [facility] [employer], [employer]. 04-23-2011 13:39-0400 Diastolic blood pressure 82 mm[Hg] Carmencita Moya [employer] [facility], [employer].; [employer], [employer]. Comment on above: Patient Position: Sitting; Cuff Location : Left Arm; Cuff Size: Standard 04-23-2011 13:39-0400 Heart rate 88 /min Carmencita Moya [employer] [facility], [facility] [employer]. Comment on above: Pattern: Regular 04-23-2011 13:39-0400 Systolic blood pressure 153 mm[Hg] Carmencita E Griffin HERNANDEZ [facility], [employer].; [employer], [employer]. Comment on above: Patient Position: Sitting; Cuff Location : Left Arm; Cuff Size: Standard 12-02-2010 09:33-0400 Body weight 124.29 kg Edyta Tai [employer] [facility] [employer] 12-02-2010 09:33-0400 Diastolic blood pressure 86 mm[Hg] Edyta Tai [facility], [facility].; [employer]. Comment on above: Patient Position: Sitting; Cuff Location : Left Arm; Cuff Size: Large 12-02-2010 09:33-0400 Heart rate 62 /min Edyta Tai [employer] [facility], Inc.; [employer]. Comment on above: Pattern: Regular 12-02-2010 09:33-0400 Systolic blood pressure 134 mm[Hg] Edyta Tai [facility] [employer]. Comment on above: Patient Position: Sitting; Cuff Location : Left Arm; Cuff Size: Large 06-29-2010 14:30-0500 Body height 180.34 cm Sharon Obrien [facility], [facility].; [employer] [facility]. 06-29-2010 14:30-0500 Body mass index (BMI) [Ratio] 42.4 kg/m2 Sharon Obrien [facility], Inc.; [employer] [facility]. 06-29-2010 14:30-0500 Body surface area Derived from formula 2.52 m2 Sharon Obrien [facility], [facility].; [employer]. 06-29-2010 14:30-0500 Body temperature 97.2 [degF] [facility] [employer] [facility], [facility].; [employer]. Comment on above: Method: Tympanic 06-29-2010 14:30-0500 Body weight 137.89 kg Sharon Obrien Deshawn [facility], [facility].; [employer] [facility]. 06-16-2010 14:55-0500 Body height 180.34 cm Edyta Tai [employer] [facility], [facility].; [employer]. 06-16-2010 14:55-0500 Body mass index (BMI) [Ratio] 43.24 kg/m2 Edyta Tai [facility], [employer].; [employer]. 06-16-2010 14:55-0500 Body surface area Derived from formula 2.54 m2 Nathalia Abida [facility] [employer] [facility], [employer].; [employer]. 06-16-2010 14:55-0500 Body temperature 98.3 [degF] Edyta Tai [employer].; [employer]. Comment on above: Method: Tympanic 06-16-2010 14:55-0500 Body weight 140.62 kg Edyta Tai [employer] [facility].; [employer] 05-07-2010 [id number] Body temperature 97.4 [degF] Sada Mayo RN [employer]. Comment on above: Method: Tympanic 05-07-2010 [id number] Body weight 139.35 kg Sada Mayo RN [employer]. 05-07-2010 08:11-0400 Diastolic blood pressure 80 mm[Hg] Sada Mayo RN [employer]. Comment on above: Patient Position: Sitting; Cuff Location : Left Arm; Cuff Size: Standard 05-07-2010 08:11-0400 Heart rate 78 /min Sada Mayo RN [employer]. Comment on above: Pattern: Regular 05-07-2010 08:11-0400 Systolic blood pressure 142 mm[Hg] Sada Mayo RN [employer]. Comment on above: Patient Position: Sitting; Cuff Location : Left Arm; Cuff Size: Standard 04-06-2010 09:180400 Body weight 136.53 kg Neilee L Vess [employer].; [employer]. 04-06-2010 09:18-0400 Diastolic blood pressure 74 mm[Hg] Neilee L Vess [employer]. Comment on above: Patient Position: Sitting; Cuff Location : Left Arm; Cuff Size: Standard 04-06-2010 09:18-0400 Heart rate 73 /min Neilee L Vess [employer].; [employer]. Comment on above: Pattern: Regular 04-06-2010 09:18-0400 Systolic blood pressure 142 mm[Hg] Neilee L Vess [employer] Comment on above: Patient Position: Sitting; Cuff Location : Left Arm; Cuff Size: Standard Encounters Encounter Date Encounter Type Care Provider Facility Start: 01-22-2025 ambulatory Reagan Stovall Facility:[facility] Start: 01-14-2025 Reagan Stovall MD Work Phone: [employer]. Start: 12-28-2024 End: 12-28-2024 Reagan Stovall MD Work Phone: [employer]. Start: 12-25-2024 End: 12-25-2024 ambulatory REAGAN STOVALL [facility] Start: 12-13-2024 End: 12-13-2024 Patient encounter status Reagan Stovall MD Work Phone: [employer] Start: 12-13-2024 End: 12-13-2024 Periodic preventive med est patient 40-64yrs Reagan Stovall MD Work Phone: [employer]. Start: 12-13-2024 Reagan Stovall MD Work Phone: [employer]. Start: 12-04-2024 End: 12-04-2024 Reagan Stovall MD Work Phone: [employer]. Start: 11-06-2024 End: 11-06-2024 Reagan Stovall MD Work Phone: [employer]. Start: 07-09-2024 End: 07-09-2024 Medication Reagan Stovall MD Work Phone: [employer]. Start: 07-09-2024 End: 07-09-2024 Reagan Stovall MD Work Phone: [employer]. Start: 05-30-2024 Follow-up encounter Reagan holley MD Work Phone: [employer] Start: 05-30-2024 End: 05-30-2024 Office outpatient visit 25 minutes Reagan Stovall MD Work Phone: [employer] Start: 12-12-2023 End: 12-12-2023 Patient encounter status Reagan Stovall MD Work Phone: [employer] Start: 12-12-2023 End: 12-12-2023 Periodic preventive med est patient 40-64yrs Reagan Stovall MD Work Phone: [employer]. Start: 12-05-2023 End: 12-05-2023 Orders Reagan Stovall MD Work Phone: [employer]. Start: 12-05-2023 End: 12-05-2023 Reagan Stovall MD Work Phone: [employer]. Start: 10-11-2023 End: 10-11-2023 Orders Reagan Stovall MD Work Phone: [employer]. Start: 10-11-2023 End: 10-11-2023 Reagan Stovall MD Work Phone: [employer]. Start: 06-13-2023 End: 06-13-2023 Office outpatient visit 15 minutes Reagan Stovall MD Work Phone: [employer]. Start: 12-13-2022 End: 12-13-2022 Patient encounter status Reagan Stovall MD Work Phone: [employer] Start: 12-13-2022 End: 12-13-2022 Periodic preventive med est patient 40-64yrs Reagan Stovall MD Work Phone: [employer]. Start: 12-06-2022 End: 12-06-2022 Orders Reagan Stovall MD Work Phone: [employer]. Start: 12-06-2022 End: 12-06-2022 Reagan Stvoall MD Work Phone: [employer]. Start: 11-18-2022 End: 11-18-2022 Orders Reagan Stovall MD Work Phone: [employer]. Start: 11-18-2022 End: 11-18-2022 Reagan Stovall MD Work Phone: [employer]. Start: 10-25-2022 End: 10-25-2022 Office outpatient visit 15 minutes Reagan Stovall MD Work Phone: [employer]. Start: 06-07-2022 End: 06-07-2022 Office outpatient visit 15 minutes Reagan Stovall MD Work Phone: [employer]. Start: 03-29-2022 End: 03-29-2022 Office outpatient visit 15 minutes Reagan Stovall MD Work Phone: [employer]. Start: 01-16-2022 Non-patient / Non-visit Dr. Dada Stovall Work Phone: [facility] Start: 01-15-2022 End: 01-15-[address] Reagan Stovall Work Phone: [facility]Neurology Start: 01-07-2022 End: 01-07-2022 Historical Summary Reagan Stovall MD Work Phone: [employer]. Start: 01-07-2022 End: 01-07-2022 Reagan Stovall MD Work Phone: [employer]. Start: 12-29-2021 End: 12-29-[address] [facility] Start: 12-03-2021 End: 12-03-2021 Patient encounter status Reagan Stovall MD Work Phone: [employer] Start: 12-03-2021 End: 12-03-2021 Periodic preventive med est patient 40-64yrs Reagan Stovall MD Work Phone: [employer]. Start: 12-03-2021 End: 12-03-2021 Physical examination Reagan Stovall MD Work Phone: [employer] Start: 11-19-2021 End: 11-19-2021 Orders Reagan Stovall MD Work Phone: [employer]. Start: 11-19-2021 End: 11-19-2021 Reagan Stovall MD Work Phone: [employer]. Start: 10-07-2021 End: 10-07-2021 Orders Reagan Stovall MD Work Phone: [employer]. Start: 10-07-2021 End: 10-07-2021 Reagan Stovall MD Work Phone: [employer]. Start: 05-25-2021 End: 05-25-2021 Office outpatient visit 15 minutes Reagan Stovall MD Work Phone: [employer]. Start: 11-24-2020 End: 11-24-2020 Patient encounter status Reagan Stovall MD Work Phone: [employer] Start: 11-24-2020 End: 11-24-2020 Periodic preventive med est patient 40-64yrs Reagan Stovall MD Work Phone: [employer]. Start: 11-17-2020 End: 11-17-2020 Orders Reagan Stovall MD Work Phone: [employer]. Start: 11-17-2020 End: 11-17-2020 Reagan Stovall MD Work Phone: [employer]. Start: 11-03-2020 End: 11-03-2020 Orders Reagan Stovall MD Work Phone: [employer]. Start: 11-03-2020 End: 11-03-2020 Reagan Stovall MD Work Phone: [employer]. Start: 06-16-2020 End: 06-16-2020 Office outpatient visit 15 minutes Reagan Stovall MD Work Phone: [employer]. Start: 11-19-2019 End: 11-19-2019 Initial preventive medicine new patient 40-64yrs Reagan Stovall MD Work Phone: [employer]. Start: 11-19-2019 End: 11-19-2019 Orders Reagan Stovall MD Work Phone: [employer]. Start: 11-19-2019 End: 11-19-2019 Patient encounter status Reagan Stovall MD Work Phone: [employer] Start: 11-19-2019 End: 11-19-2019 Reagan Stovall MD Work Phone: [employer]. Start: 11-05-2019 End: 11-06-2019 Orders Reagan Stovall MD Work Phone: [employer]. Start: 11-05-2019 End: 11-06-2019 Reagan Stovall MD Work Phone: [employer]. Start: 05-21-2019 End: 05-21-2019 Office outpatient visit 15 minutes Reagan Stovall MD Work Phone: [employer]. Start: 11-13-2018 End: 11-07-2018 Historical Summary Reagan Stovall MD Work Phone: [employer]. Start: 11-13-2018 End: 11-13-2018 Office outpatient visit 15 minutes Reagan Stovall MD Work Phone: [employer]. Start: 11-13-2018 End: 11-07-2018 Reagan Stovall MD Work Phone: [employer]. Start: 10-30-2018 End: 10-30-2018 Office outpatient visit 15 minutes Reagan Stovall MD Work Phone: [employer]. Start: 10-30-2018 End: 10-30-2018 Orders Reagan Stovall MD Work Phone: [employer]. Start: 10-30-2018 End: 10-30-2018 Reagan Stovall MD Work Phone: [employer]. Start: 09-01-2018 End: 09-01-2018 Office outpatient visit 15 minutes Reagan Stovall MD Work Phone: [employer]. Start: 11-21-2017 End: 11-21-2017 Office outpatient visit 15 minutes Reagan Stovall MD Work Phone: [employer] Start: 11-14-2017 End: 11-14-2017 Orders Reagan Stovall MD Work Phone: [employer] Start: 11-14-2017 End: 11-14-2017 Reagan Stovall MD Work Phone: [employer]. Start: 05-23-2017 End: 05-23-2017 Office outpatient visit 15 minutes Reagan Stovall MD Work Phone: [employer]. Start: 05-17-2017 End: 05-17-2017 Historical Summary Reagan Stovall MD Work Phone: [employer]. Start: 05-17-2017 End: 05-17-2017 Reagan Stovall MD Work Phone: [employer]. Start: 11-08-2016 End: 11-08-2016 Office outpatient visit 15 minutes Reagan Stovall MD Work Phone: [employer]. Start: 11-01-2016 End: 11-01-2016 Orders Reagan Stovall MD Work Phone: [employer] Start: 11-01-2016 End: 11-01-2016 Reagan Stovall MD Work Phone: [employer] Start: 10-06-2016 End: 10-06-2016 Office outpatient visit 15 minutes Reagan Stovall MD Work Phone: [employer]. Start: 08-31-2016 End: 08-31-2016 Medication Reagan Stovall MD Work Phone: [employer]. Start: 08-31-2016 End: 08-31-2016 Reagan Stovall MD Work Phone: [employer]. Start: 07-28-2016 End: 07-28-2016 Orders Reagan Stovall MD Work Phone: [employer]. Start: 07-28-2016 End: 07-28-2016 Reagan Stovall MD Work Phone: [employer]. Start: 05-11-2016 End: 05-11-2016 Orders Reagan Stovall MD Work Phone: [employer]. Start: 05-11-2016 End: 05-11-2016 Reagan Stovall MD Work Phone: [employer]. Start: 05-10-2016 End: 05-10-2016 Office outpatient visit 15 minutes Reagan Stovall MD Work Phone: [employer]. Start: 05-03-2016 End: 05-03-2016 Orders Reagan Stovall MD Work Phone: [employer]. Start: 05-03-2016 End: 05-03-2016 Reagan Stovall MD Work Phone: [employer]. Start: 11-03-2015 End: 11-03-2015 Office outpatient visit 15 minutes Reagan Stovall MD Work Phone: [employer]. Start: 10-20-2015 End: 10-20-2015 Orders Reagan Stovall MD Work Phone: [employer]. Start: 10-20-2015 End: 10-20-2015 Reagan Stovall MD Work Phone: [employer]. Start: 10-03-2015 End: 10-03-2015 Patient encounter procedure Reagan Stovall MD Work Phone: [employer]. Start: 10-03-2015 End: 10-03-2015 Reagan Stovall MD Work Phone: [employer]. Start: 04-28-2015 End: 04-28-2015 Office outpatient visit 15 minutes Reagan Stovall MD Work Phone: [employer]. Start: 04-21-2015 End: 04-21-2015 Orders Reagan Stovall MD Work Phone: [employer]. Start: 04-21-2015 End: 04-21-2015 Reagan Stovall MD Work Phone: [employer] Start: 11-18-2014 End: 11-18-2014 Patient encounter procedure Reagan Stovall MD Work Phone: [employer]. Start: 11-18-2014 End: 11-18-2014 Reagan Stovall MD Work Phone: [employer]. Start: 10-21-2014 End: 10-21-2014 Office outpatient visit 15 minutes Reagan Stovall MD Work Phone: [employer]. Start: 04-22-2014 End: 04-22-2014 Office outpatient visit 15 minutes Reagan Stovall MD Work Phone: [employer]. Start: 04-19-2014 End: 04-19-2014 Historical Summary Reagan Stovall MD Work Phone: [employer]. Start: 04-19-2014 End: 04-19-2014 Reagan Stovall MD Work Phone: [employer]. Start: 04-03-2014 End: 04-03-2014 Orders Reagan Stovall MD Work Phone: [employer]. Start: 04-03-2014 End: 04-03-2014 Reagan Stovall MD Work Phone: [employer]. Start: 10-15-2013 End: 10-15-2013 Patient encounter procedure Reagan Stovall MD Work Phone: [employer]. Start: 10-15-2013 End: 10-15-2013 Reagan Stovall MD Work Phone: [employer]. Start: 07-11-2013 End: 07-11-2013 Medication Reagan Stovall MD Work Phone: [employer]. Start: 07-11-2013 End: 07-11-2013 Reagan Stovall MD Work Phone: [employer]. Start: 04-09-2013 End: 04-09-2013 Patient encounter procedure Reagan Stovall MD Work Phone: [employer]. Start: 04-09-2013 End: 04-09-2013 Reagan Stovall MD Work Phone: [employer]. Start: 03-07-2013 End: 03-07-2013 Orders Reagan Stovall MD Work Phone: [employer]. Start: 03-07-2013 End: 03-07-2013 Reagan Stovall MD Work Phone: [employer]. Start: 08-23-2012 End: 08-23-2012 Patient encounter procedure Reagan Stovall MD Work Phone: [employer]. Start: 08-23-2012 End: 08-23-2012 Reagan Stovall MD Work Phone: [employer]. Start: 08-15-2012 End: 08-15-2012 Orders Reagan Stovall MD Work Phone: [employer]. Start: 08-15-2012 End: 08-15-2012 Reagan Stovall MD Work Phone: [employer]. Start: 06-30-2012 End: 06-30-2012 Orders Reagan Stovall MD Work Phone: [employer]. Start: 06-30-2012 End: 06-30-2012 Patient encounter procedure Reagan Stovall MD Work Phone: [employer]. Start: 06-30-2012 End: 06-30-2012 Reagan Stovall MD Work Phone: [employer]. Start: 06-12-2012 End: 06-12-2012 Patient encounter procedure Reagan Stovall MD Work Phone: [employer]. Start: 06-12-2012 End: 06-12-2012 Reagan Stovall MD Work Phone: [employer]. Start: 02-21-2012 End: 02-21-2012 Patient encounter procedure Reagan Stovall MD Work Phone: [employer]. Start: 02-21-2012 End: 02-21-2012 Reagan Stovall MD Work Phone: [employer]. Start: 02-07-2012 End: 02-07-2012 Orders Reagan Stovall MD Work Phone: [employer]. Start: 02-07-2012 End: 02-07-2012 Reagan Stovall MD Work Phone: [employer]. Start: 10-15-2011 End: 10-15-2011 Medication Reagan Stovall MD Work Phone: [employer]. Start: 10-15-2011 End: 10-15-2011 Reagan Stovall MD Work Phone: [employer]. Start: 06-23-2011 End: 06-23-2011 Patient encounter procedure Reagan Stovall MD Work Phone: [employer]. Start: 06-23-2011 End: 06-23-2011 Reagan Stovall MD Work Phone: [employer]. Start: 04-27-2011 End: 04-27-2011 Nursing evaluation of patient and report Reagan Stovall MD Work Phone: [employer]. Start: 04-27-2011 End: 04-27-2011 Reagan Stovall MD Work Phone: [employer]. Start: 04-23-2011 End: 04-23-2011 Patient encounter procedure Reagan Stovall MD Work Phone: [employer]. Start: 04-23-2011 End: 04-23-2011 Reagan Stovall MD Work Phone: [employer]. Start: 12-02-2010 End: 12-02-2010 Patient encounter procedure Reagan Stovall MD Work Phone: [employer]. Start: 12-02-2010 End: 12-02-2010 Reagan Stovall MD Work Phone: [employer]. Start: 10-05-2010 End: 10-05-2010 Medication Reagan Stovall MD Work Phone: [employer]. Start: 10-05-2010 End: 10-05-2010 Reagan Stovall MD Work Phone: [employer] Start: 07-08-2010 End: 07-08-2010 Laboratory examination ordered as part of a routine general medical examination Reagan Stovall MD Work Phone: [employer] Start: 07-08-2010 End: 07-08-2010 Orders Reagan Stovall MD Work Phone: [employer]. Start: 07-08-2010 End: 07-08-2010 Reagan Stovall MD Work Phone: [employer]. Start: 07-07-2010 End: 07-07-2010 Laboratory examination ordered as part of a routine general medical examination Reagan Stovall MD Work Phone: [employer] Start: 07-07-2010 End: 07-07-2010 Orders Reagan Stovall MD Work Phone: [employer] Start: 07-07-2010 End: 07-07-2010 Reagan Stovall MD Work Phone: [employer] Start: 06-29-2010 End: 06-29-2010 Patient encounter procedure Reagan Stovall MD Work Phone: [employer] Start: 06-29-2010 End: 06-29-2010 Reagan Stovall MD Work Phone: [employer] Start: 06-16-2010 End: 06-16-2010 Patient encounter procedure Reagan Stovall MD Work Phone: [employer] Start: 06-16-2010 End: 06-16-2010 Reagan Stovall MD Work Phone: [employer] Start: 05-07-2010 End: 05-07-2010 Patient encounter procedure Reagan Stovall MD Work Phone: [employer] Start: 05-07-2010 End: 05-07-2010 Reagan Stovall MD Work Phone: [employer] Start: 04-06-2010 End: 04-06-2010 Patient encounter procedure Reagan Stovall MD Work Phone: [facility] Start: 04-06-2010 End: 04-06-2010 Historical Summary Reagan Stovall MD Work Phone: [facility] Start: 04-06-2010 End: 04-06-2010 Reagan Stovall MD Work Phone: [facility] Laboratory examinati on ordered as part of a routine general medical examination Andreea Newsome [facility].; [facility] Patient encounter status Edyta Sylvester [employer] [facility].; [facility]. Patient encounter status Arline OMER [facility].; [facility] Patient encounter status Thai Peña RN [facility].; [facility]. Patient encounter status Arline OMER [facility].; [facility]. Physical examination Margarita Peña RN [facility].; [facility] Procedures Date Procedure Procedure Detail Performing Clinician Start: 01-12-2025 End: 01-12-2025 Reagan Stovall MD Work Phone: Start: 12-13-2024 End: 12-12-2024 Depression screening Reagan Stovall MD Work Phone: Start: 12-13-2024 End: 01-14-2025 Oncology colorectal screening isidro 10 dna markrs Reagan Stovall MD Work Phone: Start: 12-13-2024 End: 12-12-2024 Pos clin depres scrn f/u doc Reagan Stovall MD Work Phone: Start: 12-13-2024 End: 12-12-2024 Scr dep neg, no plan reqd Reagan Stovall MD Work Phone: Start: 12-13-2024 End: 12-27-2024 Screening mammography bi 2-view breast inc cad Reagan Stovall MD Work Phone: Start: 12-13-2024 End: 12-28-2024 Us soft tissue head & neck real time imge docm Reagan Stovall MD Work Phone: Start: 12-04-2024 End: 12-04-2024 Arline Bucio LPN Start: 12-04-2024 End: 12-04-2024 Arline Bucio LPN Start: 05-30-2024 End: 05-30-2024 Flu immunize order/admin Reagan Gupta Work Phone: Start: 12-12-2023 End: 12-12-2023 Depression screening Reagan Stovall MD Work Phone: Start: 12-12-2023 End: 12-09-2023 Pos clin depres scrn f/u doc Reagan Stovall MD Work Phone: Start: 12-12-2023 End: 12-12-2023 Scr dep neg, no plan reqd Reagan Stovall MD Work Phone: Start: 12-05-2023 End: 12-05-2023 Comprehensive metabolic 2000 panel - Serum or Plasma Arline Bucio LPN Comment on above: 98 Start: 12-05-2023 End: 12-05-2023 Lipid panel Arline Bucio LPN Comment on above: TC 137 LDL 68 HDL 51 TRI 93 Start: 12-05-2023 End: 12-05-2023 Arline Bucio LPN Start: 06-13-2023 End: 06-13-2023 Flu immunize order/admin Reagan Gupta Work Phone: Start: 12-13-2022 End: 12-13-2022 Depression screening Reagan Stovall MD Work Phone: Start: 12-13-2022 End: 12-13-2022 Scr dep neg, no plan reqd Reagan Stovall MD Work Phone: Start: 12-06-2022 End: 12-06-2022 Comprehensive metabolic 2000 panel - Serum or Plasma Edyta Tai LPN Comment on above: Glucose 91 Start: 12-06-2022 End: 12-06-2022 Lipid panel Edyta Tai LP N Start: 12-06-2022 End: 12-06-2022 Thyrotropin [Units/volume] in Serum or Plasma Edyta Tai [employer] Comment on above: 1.66 Start: 12-06-2022 End: 12-06-2022 Arline Bucio FI[employer] Start: 01-01-2022 End: 01-01-2022 Cologuard Edyta Tai LP N Comment on above: Normal. Start: 12-03-2021 End: 12-03-2021 Depression screening Reagan Stovall MD Work Phone: Start: 12-03-2021 End: 12-03-2021 FIT DNA test Edyta Tai LP N Comment on above: wnl Start: 12-03-2021 End: 01-07-2022 Oncology colorectal screening isidro 10 dna markrs Reagan Stovall MD Work Phone: Start: 12-03-2021 End: 12-03-2021 Pos clin depres scrn f/u doc Reagan Stovall MD Work Phone: Start: 12-03-2021 End: 01-25-2022 Screening mammography bi 2-view breast inc cad Reagan Stovall MD Work Phone: Comment on above: Within Normal Limits . Start: 05-25-2021 End: 05-25-2021 Flu immunize order/admin Reagan Gupta Work Phone: Start: 11-24-2020 End: 11-24-2020 Depression screening Reagan Stovall MD Work Phone: Start: 11-24-2020 End: 11-24-2020 Scr dep neg, no plan reqd Reagan Stovall MD Work Phone: Start: 11-19-2019 End: 11-19-2019 Depression screening Reagan Stovall MD Work Phone: Start: 11-19-2019 End: 11-19-2019 Scr dep neg, no plan reqd Reagan Stovall MD Work Phone: Start: 05-21-2019 End: 05-21-2019 Flu immunize order/admin Reagan Gupta Work Phone: Start: 11-21-2017 End: 11-21-2017 Body mass index documented Reagan Stovall MD Work Phone: Start: 11-21-2017 End: 11-21-2017 Most recent diastolic blood pressure < 80 mm hg Carmencita E Griffin [employer] Start: 11-21-2017 End: 11-21-2017 Most recent systolic blood press 130-139mm hg Reagan Stovall MD Work Phone: Start: 05-23-2017 End: 05-23-2017 Body mass index documented Reagan Stovall MD Work Phone: Start: 07-28-2016 End: 10-31-2019 Polysom 6/>yrs sleep w/cpap 4/> addl estephanie attnd Reagan Stovall MD Work Phone: Start: 05-11-2016 End: 07-28-2016 Polysom 6/>yrs sleep 4/> addl estephanie attnd Reagan Stovall MD Work Phone: Start: 12-02-2010 End: 12-02-2010 Triamcinolone acet inj NOS Reagan Stovall MD Work Phone: Start: 06-29-2010 End: 06-29-2010 Removal skn tags art specialist fibrq tags any area upw/15 Reagan Stovall MD Work Phone: Start: 04-06-2010 End: 07-28-2010 Percutaneous tests w/allergenic extracts Reagan Stovall MD Work Phone: Start: 02-19-2008 End: 02-19-2008 Tdap Edyta Tai LP N Start: 02-19-2008 End: 02-19-2008 Arline Bucio LPN Start: 07-04-1996 End: 07-04-1996 Caitie Peña RN Comment on above: [facility] Start: 07-04-1996 End: 07-04-1996 Margarita Peña RN Plan of Treatment Date Care Activity Detail Author Start: 06-10-2025 [employer] Start: 12-13-2024 Oncology colorectal screening isidro 10 dna sergeyrs [employer]. Start: 12-13-2024 End: 12-13-2024 Screening mammography bi 2-[facility] [employer], [employer]. Start: 12-13-2024 End: 12-13-2024 Us soft tissue head & neck real time imge docm [facility].; [employer] [facility] Start: 12-13-2024 Assay of thyroid stimulating hormone tsh [facility].; [employer], [employer]. Start: 12-13-2024 Antibody borrelia burgdorferi lyme disease [facility].; [employer], [employer]. Start: 12-13-2024 Blood count complete auto&auto difrntl wbc [facility] [employer]. Start: 12-13-2024 C-reactive protein [facility].; [employer], [employer]. Start: 12-13-2024 Patient encounter procedure Medical; PHYSICAL - awv [facility] Start: 13-Dec-2024 07:20-04:00 MD Reagan Stovall Appointment Request [facility] [employer]. Start: 12-13-2024 [employer] Start: 12-04-2024 Comprehensive metabolic panel [facility] [employer].; [employer]. Start: 12-04-2024 Lipid panel [employer], [employer]. Start: 12-04-2024 Nursing evaluation of patient and report Medical; Nurse visit - [facility]S-sfb [employer]. Start: 04-Dec-2024 08:00-04:00 NURSE, FLOAT Appointment Request [employer]. Start: 12-04-2024 [employer]. Start: 06-11-2024 Patient encounter procedure Medical; RTN OFFICE VISIT - 6 mo rtn [employer]. Start: 11-Jun-2024 08:00-05:00 MD Reagan Stovall Appointment Request [employer]. Start: 12-12-2023 Patient encounter procedure [employer]. Start: 12-05-2023 Lipid panel LIPID PANEL ([id number]) Start: 05-Dec-2023 Request [employer].; [facility] Start: 12-05-2023 Nursing evaluation of patient and report [facility] Start: 12-05-2023 Comprehensive metabolic panel [facility] Start: 12-29-2021 [facility] Work Phone: Alternaria alternata IgE Ab [Units/volume] in Serum [facility] Work Phone: Congolese Cockroach I gE Ab [Units/volume] in Serum [facility] Work Phone: Congolese house dust mite IgE Ab [Units/volume] in Serum [facility] Work Phone: Aspergillus fumigatus [facility] Work Phone: Bermuda grass IgE Ab [Units/volume] in Serum [facility] Work Phone: Box elder [facility] Work Phone: Cat dander [facility] Work Phone: Cladosporium herbaru m IgE Ab [Units/volume] in Serum [facility] Work Phone: Common Ragweed IgE A b [Units/volume] in Serum [facility] Work Phone: [place] [facility] Work Phone: Dog epithelium IgE A b [Units/volume] in Serum [facility] Work Phone: house dust mite IgE Ab [Units/volume] in Serum [facility] Work Phone: Exercise tolerance test [facility] Work Phone: Immunoglobulin E measurement [facility] Work Phone: Measurement of respi ratory function [facility] Work Phone: Mouse urine proteins [facility] Work Phone: Pecan or [place] Nut IgE Ab [Units/volume] in Serum [facility] Work Phone: Rough Pigweed IgE Ab [Units/volume] in Serum [facility] Work Phone: Sheep Mallory IgE Ab [Units/volume] in Serum [facility] Work Phone: Silver Birch IgE Ab [Units/volume] in Serum [facility] Work Phone: Izaiah IgE Ab [Units/volume] in Serum [facility] Work Phone: Tree pollen [facility] Work Phone: [place] RA[facility] Work Phone: White Kevin IgE Ab [Units/volume] in Serum [facility] Work Phone: White Elm IgE Ab [Units/volume] in Serum [facility] Work Phone: White mulberry IgE A b [Units/volume] in Serum [facility] Work Phone: Immunizations Immunization Date Immunization Notes Care Provider [facility] 05-30-2024 influenza, seasonal, injectable, preservative free Reagan Stovall MD Work Phone: [facility]; [facility]. Comment on above: Site: Left ArmVIS Gi rhiannon: * Influenza (Flu) Vaccine (Inactivated or Recombinant) (02/06/21) 06-13-2023 influenza, injectabl e, quadrivalent, preservative free Reagan Stovall MD Work Phone: [facility]; [employer]. Comment on above: Site: Left DeltoidVI S Given: * Influenza (Flu) Vaccine (Inactivated or Recombinant) (02/06/21) 03-15-2022 COVID-Pfizer (30 MCG/0.3 ML) Reagan Stovall MD Work Phone: [facility]; [employer]. 03-15-2022 influenza, injectabl e, quadrivalent, contains preservative Reagan Stovall MD Work Phone: [facility] [employer]; [facility] 05-25-2021 influenza, injectabl e, quadrivalent, contains preservative Reagan Stovall MD Work Phone: [facility]; [employer]. Comment on above: Site: Left DeltoidVI S Given: * Influenza - Inactivated (02/15/19)Given by Arline Bucio LPN 10-25-2020 COVID-Moderna (100 MCG/0.5 ML) Reagan Stovall MD Work Phone: [facility]; [employer]. 09-27-2020 COVID-Moderna (100 MCG/0.5 ML) Reagan Stovall MD Work Phone: [facility]; [facility] 07-04-2020 COVID-Moderna (100 MCG/0.5 ML) Reagan Stovall MD Work Phone: [facility]; [employer] 04-07-2020 influenza, injectabl e, quadrivalent, contains preservative Reagan Stovall MD Work Phone: [facility]; [employer] 11-19-2019 tetanus toxoid, redu piter diphtheria toxoid, and acellular pertussis vaccine, adsorbed Reagan Stovall MD Work Phone: [facility]; [employer]. Comment on above: Site: Left DeltoidVI S Given: * Tdap (Tetanus, Diphtheria, Pertussis) (08/27/14) 11-19-2019 measles, mumps and rubella virus vaccine Reagan Stovall MD Work Phone: [facility]; [employer]. Comment on above: Site: Left ArmVIS Gi rhiannon: * Measles/Mumps/Rubella (MMR) (08/15/17) 05-21-2019 influenza virus vaccine, unspecified formulation Reagan Stovall MD Work Phone: [facility]; [employer]. 05-21-2019 influenza, injectabl e, quadrivalent, contains preservative Reagan Stovall MD Work Phone: [facility]; [employer] Comment on above: Site: Left DeltoidVI S Given: * Influenza - Inactivated (02/07/15) 05-23-2017 influenza, injectabl e, quadrivalent, contains preservative Reagan Stovall MD Work Phone: [facility] [employer]; [employer] Comment on above: Site: Deltoid (Left) VIS Given: * Influenza - Inactivated (02/07/15) 08-31-2016 typhoid vaccine, unspecified formulation Reagan Stovall MD Work Phone: [employer]; [employer]. 05-10-2016 unknown vaccine or immune globulin Reagan Stovall MD Work Phone: [employer]; [employer]. 05-10-2016 influenza, injectabl e, quadrivalent, contains preservative Reagan Stovall MD Work Phone: [employer]; [employer]. Comment on above: Site: Deltoid (Left) VIS Given: * Influenza - Inactivated (02/07/15) 04-28-2015 influenza, seasonal, injectable Reagan Stovall MD Work Phone: [employer]; [employer]. Comment on above: Site: Deltoid (Right )VIS Given: * Inactivated Influenza (02/07/2015) 04-22-2014 IMMUNIZATION ADMIN ([id number]) Reagan Stovall MD Work Phone: [employer]; [employer] 04-22-2014 Reagan Stovall MD Work Phone: [employer]; [employer]. 04-22-2014 influenza, seasonal, injectable Reagan Stovall MD Work Phone: [employer]; [employer] Comment on above: Site: Deltoid (Left) VIS Given: * Influenza, Inactivated () 07-11-2013 typhoid vaccine, unspecified formulation Reagan Stovall MD Work Phone: [employer]; [employer]. 04-27-2011 influenza, seasonal, injectable Reagan Stovall MD Work Phone: [employer]; [employer] Comment on above: Site: Deltoid (Right )VIS Given: * Inactivated Influenza Vaccine (02/11/09) * Inactivated Influenza Vaccine (01/26/11) * Inactivated Influenza Vaccine (01/26/11) * Inactivated Influenza Vaccine (01/26/11) * Inactivated Influenza Vaccine (01/26/11) * Inactivated Influenza Vaccine (01/26/11) * Inactivated Influenza Vaccine (01/26/11) * VIS Given (Unspecified) * VIS Given (Unspecified) 04-27-2011 IMMUNIZATION ADMIN ([id number]) Reagan Stovall MD Work Phone: [employer]; [employer] 04-27-2011 Reagan Stovall MD Work Phone: [employer]; [employer] 02-19-2008 tetanus toxoid, redu piter diphtheria toxoid, and acellular pertussis vaccine, adsorbed Reagan Stovall MD Work Phone: [employer]; [employer] Payers Date Payer Category Payer Self-pay [id number] 2024 Unknown [id number] 2010 Unknown SELF PAY INSURANCE [id number] 1974 Unknown [id number] Unknown Unknown [id number] Unknown [id number] Social History Date Type Detail Facility Start: 12-29-2021 Tobacco smoking stat [facility] Unknown if ever smoked [facility] Work Phone: Start: 1975 Sex Assigned At Female [facility] Work Phone: Caffeine Use Caffeine Use [employer]. Tobacco Use: Tobacco Use: ; N ever smoker. [employer] Never smoked tobacco [employer]; [employer]. Work Phone: Evaluation note Note Date & Type Note Facility Evaluation note Diagnosis Onset Date Asthma acute Morbid obesity [facility] Work Phone: Chief Complaint and Reason for Visit Chief Complaint Asthma INT LABS Reason for Visit Asthma Morbid obesity Chief Complaint Asthma INT LABS ASTHMA Asthma Reason for Visit Asthma Morbid obesity Family History No Family History Records Found Relationship Condition Age at Onset Recorded Date/T cort[place] father Coronary artery disease Unknown grandfather Coronary artery disease Unknown grandmother Malignant neoplasm of uterus Unknown Malignant neoplasm of breast Unknown Osteoarthritis Unknown grandmother Osteoarthritis Unknown aunt Osteoarthritis Unknown Breast cancer Status:Active Comments:Paterna l Grandmother. Cerebrovascular Accident Status:Active Comment s:Negative Family History Of. Colon Cancer Status:Active Comments:Negativ e Family History Of. Coronary Artery Disease Status:Active Comments :Father. Paternal Grandfather. Diabetes Mellitus Type II Status:Active Commen ts:Negative Family History Of. Hypertension Status:Active Comments:Sister. Osteoarthritis Status:Active Comments:Materna l Grandmother. Paternal Grandmother. Aunts Uterine Cancer Status:Active Comments:Paterna l Grandmother. Breast cancer Status:Active Comments:Paterna l Grandmother. Cerebrovascular Accident Status:Active Comment s:Negative Family History Of. Colon Cancer Status:Active Comments:Negativ e Family History Of. Coronary Artery Disease Status:Active Comments :Father. Paternal Grandfather. Diabetes Mellitus Type II Status:Active Commen ts:Negative Family History Of. Hypertension Status:Active Comments:Sister. Osteoarthritis Status:Active Comments:Materna l Grandmother. Paternal Grandmother. Aunts Uterine Cancer Status:Active Comments:Paterna l Grandmother. Breast cancer Status:Active Comments:Paterna l Grandmother. Cerebrovascular Accident Status:Active Comment s:Negative Family History Of. Colon Cancer Status:Active Comments:Negativ e Family History Of. Coronary Artery Disease Status:Active Comments :Father. Paternal Grandfather. Diabetes Mellitus Type II Status:Active Commen ts:Negative Family History Of. Hypertension Status:Active Comments:Sister. Osteoarthritis Status:Active Comments:Materna l Grandmother. Paternal Grandmother. Aunts Uterine Cancer Status:Active Comments:Paterna l Grandmother. Breast cancer Status:Active Comments:Paterna l Grandmother. Cerebrovascular Accident Status:Active Comment s:Negative Family History Of. Colon Cancer Status:Active Comments:Negativ e Family History Of. Coronary Artery Disease Status:Active Comments :Father. Paternal Grandfather. Diabetes Mellitus Type II Status:Active Commen ts:Negative Family History Of. Hypertension Status:Active Comments:Sister. Osteoarthritis Status:Active Comments:Materna l Grandmother. Paternal Grandmother. Aunts Uterine Cancer Status:Active Comments:Paterna l Grandmother. Breast cancer Status:Active Comments:Paterna l Grandmother. Cerebrovascular Accident Status:Active Comment s:Negative Family History Of. Colon Cancer Status:Active Comments:Negativ e Family History Of. Coronary Artery Disease Status:Active Comments :Father. Paternal Grandfather. Diabetes Mellitus Type II Status:Active Commen ts:Negative Family History Of. Hypertension Status:Active Comments:Sister. Osteoarthritis Status:Active Comments:Materna l Grandmother. Paternal Grandmother. Aunts Uterine Cancer Status:Active Comments:Paterna l Grandmother. Breast cancer Status:Active Comments:Paterna l Grandmother. Cerebrovascular Accident Status:Active Comment s:Negative Family History Of. Colon Cancer Status:Active Comments:Negativ e Family History Of. Coronary Artery Disease Status:Active Comments :Father. Paternal Grandfather. Diabetes Mellitus Type II Status:Active Commen ts:Negative Family History Of. Hypertension Status:Active Comments:Sister. Osteoarthritis Status:Active Comments:Materna l Grandmother. Paternal Grandmother. Aunts Uterine Cancer Status:Active Comments:Paterna l Grandmother. Breast cancer Status:Active Comments:Paterna l Grandmother. Cerebrovascular Accident Status:Active Comment s:Negative Family History Of. Colon Cancer Status:Active Comments:Negativ e Family History Of. Coronary Artery Disease Status:Active Comments :Father. Paternal Grandfather. Diabetes Mellitus Type II Status:Active Commen ts:Negative Family History Of. Hypertension Status:Active Comments:Sister. Osteoarthritis Status:Active Comments:Materna l Grandmother. Paternal Grandmother. Aunts Uterine Cancer Status:Active Comments:Paterna l Grandmother. Breast cancer Status:Active Comments:Paterna l Grandmother. Cerebrovascular Accident Status:Active Comment s:Negative Family History Of. Colon Cancer Status:Active Comments:Negativ e Family History Of. Coronary Artery Disease Status:Active Comments :Father. Paternal Grandfather. Diabetes Mellitus Type II Status:Active Commen ts:Negative Family History Of. Hypertension Status:Active Comments:Sister. Osteoarthritis Status:Active Comments:Materna l Grandmother. Paternal Grandmother. Aunts Uterine Cancer Status:Active Comments:Paterna l Grandmother. Breast cancer Status:Active Comments:Paterna l Grandmother. Cerebrovascular Accident Status:Active Comment s:Negative Family History Of. Colon Cancer Status:Active Comments:Negativ e Family History Of. Coronary Artery Disease Status:Active Comments :Father. Paternal Grandfather. Diabetes Mellitus Type II Status:Active Commen ts:Negative Family History Of. Hypertension Status:Active Comments:Sister. Osteoarthritis Status:Active Comments:Materna l Grandmother. Paternal Grandmother. Aunts Uterine Cancer Status:Active Comments:Paterna l Grandmother. Breast cancer Status:Active Comments:Paterna l Grandmother. Cerebrovascular Accident Status:Active Comment s:Negative Family History Of. Colon Cancer Status:Active Comments:Negativ e Family History Of. Coronary Artery Disease Status:Active Comments :Father. Paternal Grandfather. Diabetes Mellitus Type II Status:Active Commen ts:Negative Family History Of. Hypertension Status:Active Comments:Sister. Osteoarthritis Status:Active Comments:Materna l Grandmother. Paternal Grandmother. Aunts Uterine Cancer Status:Active Comments:Paterna l Grandmother. Breast cancer Status:Active Comments:Paterna l Grandmother. Cerebrovascular Accident Status:Active Comment s:Negative Family History Of. Colon Cancer Status:Active Comments:Negativ e Family History Of. Coronary Artery Disease Status:Active Comments :Father. Paternal Grandfather. Diabetes Mellitus Type II Status:Active Commen ts:Negative Family History Of. Hypertension Status:Active Comments:Sister. Osteoarthritis Status:Active Comments:Materna l Grandmother. Paternal Grandmother. Aunts Uterine Cancer Status:Active Comments:Paterna l Grandmother. Breast cancer Status:Active Comments:Paterna l Grandmother. Cerebrovascular Accident Status:Active Comment s:Negative Family History Of. Colon Cancer Status:Active Comments:Negativ e Family History Of. Coronary Artery Disease Status:Active Comments :Father. Paternal Grandfather. Diabetes Mellitus Type II Status:Active Commen ts:Negative Family History Of. Hypertension Status:Active Comments:Sister. Osteoarthritis Status:Active Comments:Materna l Grandmother. Paternal Grandmother. Aunts Uterine Cancer Status:Active Comments:Paterna l Grandmother. Breast cancer Status:Active Comments:Paterna l Grandmother. Cerebrovascular Accident Status:Active Comment s:Negative Family History Of. Colon Cancer Status:Active Comments:Negativ e Family History Of. Coronary Artery Disease Status:Active Comments :Father. Paternal Grandfather. Diabetes Mellitus Type II Status:Active Commen ts:Negative Family History Of. Hypertension Status:Active Comments:Sister. Osteoarthritis Status:Active Comments:Materna l Grandmother. Paternal Grandmother. Aunts Uterine Cancer Status:Active Comments:Paterna l Grandmother. Breast cancer Status:Active Comments:Paterna l Grandmother. Cerebrovascular Accident Status:Active Comment s:Negative Family History Of. Colon Cancer Status:Active Comments:Negativ e Family History Of. Coronary Artery Disease Status:Active Comments :Father. Paternal Grandfather. Diabetes Mellitus Type II Status:Active Commen ts:Negative Family History Of. Hypertension Status:Active Comments:Sister. Osteoarthritis Status:Active Comments:Materna l Grandmother. Paternal Grandmother. Aunts Uterine Cancer Status:Active Comments:Paterna l Grandmother. Breast cancer Status:Active Comments:Paterna l Grandmother. Cerebrovascular Accident Status:Active Comment s:Negative Family History Of. Colon Cancer Status:Active Comments:Negativ e Family History Of. Coronary Artery Disease Status:Active Comments :Father. Paternal Grandfather. Diabetes Mellitus Type II Status:Active Commen ts:Negative Family History Of. Hypertension Status:Active Comments:Sister. Osteoarthritis Status:Active Comments:Materna l Grandmother. Paternal Grandmother. Aunts Uterine Cancer Status:Active Comments:Paterna l Grandmother. Breast cancer Status:Active Comments:Paterna l Grandmother. Cerebrovascular Accident Status:Active Comment s:Negative Family History Of. Colon Cancer Status:Active Comments:Negativ e Family History Of. Coronary Artery Disease Status:Active Comments :Father. Paternal Grandfather. Diabetes Mellitus Type II Status:Active Commen ts:Negative Family History Of. Hypertension Status:Active Comments:Sister. Osteoarthritis Status:Active Comments:Materna l Grandmother. Paternal Grandmother. Aunts Uterine Cancer Status:Active Comments:Paterna l Grandmother. Breast cancer Status:Active Comments:Paterna l Grandmother. Cerebrovascular Accident Status:Active Comment s:Negative Family History Of. Colon Cancer Status:Active Comments:Negativ e Family History Of. Coronary Artery Disease Status:Active Comments :Father. Paternal Grandfather. Diabetes Mellitus Type II Status:Active Commen ts:Negative Family History Of. Hypertension Status:Active Comments:Sister. Osteoarthritis Status:Active Comments:Materna l Grandmother. Paternal Grandmother. Aunts Uterine Cancer Status:Active Comments:Paterna l Grandmother. Breast cancer Status:Active Comments:Paterna l Grandmother. Cerebrovascular Accident Status:Active Comment s:Negative Family History Of. Colon Cancer Status:Active Comments:Negativ e Family History Of. Coronary Artery Disease Status:Active Comments :Father. Paternal Grandfather. Diabetes Mellitus Type II Status:Active Commen ts:Negative Family History Of. Hypertension Status:Active Comments:Sister. Osteoarthritis Status:Active Comments:Materna l Grandmother. Paternal Grandmother. Aunts Uterine Cancer Status:Active Comments:Paterna l Grandmother. Breast cancer Status:Active Comments:Paterna l Grandmother. Cerebrovascular Accident Status:Active Comment s:Negative Family History Of. Colon Cancer Status:Active Comments:Negativ e Family History Of. Coronary Artery Disease Status:Active Comments :Father. Paternal Grandfather. Diabetes Mellitus Type II Status:Active Commen ts:Negative Family History Of. Hypertension Status:Active Comments:Sister. Osteoarthritis Status:Active Comments:Materna l Grandmother. Paternal Grandmother. Aunts Uterine Cancer Status:Active Comments:Paterna l Grandmother. Breast cancer Status:Active Comments:Paterna l Grandmother. Cerebrovascular Accident Status:Active Comment s:Negative Family History Of. Colon Cancer Status:Active Comments:Negativ e Family History Of. Coronary Artery Disease Status:Active Comments :Father. Paternal Grandfather. Diabetes Mellitus Type II Status:Active Commen ts:Negative Family History Of. Hypertension Status:Active Comments:Sister. Osteoarthritis Status:Active Comments:Materna l Grandmother. Paternal Grandmother. Aunts Uterine Cancer Status:Active Comments:Paterna l Grandmother. Breast cancer Status:Active Comments:Paterna l Grandmother. Cerebrovascular Accident Status:Active Comment s:Negative Family History Of. Colon Cancer Status:Active Comments:Negativ e Family History Of. Coronary Artery Disease Status:Active Comments :Father. Paternal Grandfather. Diabetes Mellitus Type II Status:Active Commen ts:Negative Family History Of. Hypertension Status:Active Comments:Sister. Osteoarthritis Status:Active Comments:Materna l Grandmother. Paternal Grandmother. Aunts Uterine Cancer Status:Active Comments:Paterna l Grandmother. Breast cancer Status:Active Comments:Paterna l Grandmother. Cerebrovascular Accident Status:Active Comment s:Negative Family History Of. Colon Cancer Status:Active Comments:Negativ e Family History Of. Coronary Artery Disease Status:Active Comments :Father. Paternal Grandfather. Diabetes Mellitus Type II Status:Active Commen ts:Negative Family History Of. Hypertension Status:Active Comments:Sister. Osteoarthritis Status:Active Comments:Materna l Grandmother. Paternal Grandmother. Aunts Uterine Cancer Status:Active Comments:Paterna l Grandmother. Breast cancer Status:Active Comments:Paterna l Grandmother. Cerebrovascular Accident Status:Active Comment s:Negative Family History Of. Colon Cancer Status:Active Comments:Negativ e Family History Of. Coronary Artery Disease Status:Active Comments :Father. Paternal Grandfather. Diabetes Mellitus Type II Status:Active Commen ts:Negative Family History Of. Hypertension Status:Active Comments:Sister. Osteoarthritis Status:Active Comments:Materna l Grandmother. Paternal Grandmother. Aunts Uterine Cancer Status:Active Comments:Paterna l Grandmother. Breast cancer Status:Active Comments:Paterna l Grandmother. Cerebrovascular Accident Status:Active Comment s:Negative Family History Of. Colon Cancer Status:Active Comments:Negativ e Family History Of. Coronary Artery Disease Status:Active Comments :Father. Paternal Grandfather. Diabetes Mellitus Type II Status:Active Commen ts:Negative Family History Of. Hypertension Status:Active Comments:Sister. Osteoarthritis Status:Active Comments:Materna l Grandmother. Paternal Grandmother. Aunts Uterine Cancer Status:Active Comments:Paterna l Grandmother. Breast cancer Status:Active Comments:Paterna l Grandmother. Cerebrovascular Accident Status:Active Comment s:Negative Family History Of. Colon Cancer Status:Active Comments:Negativ e Family History Of. Coronary Artery Disease Status:Active Comments :Father. Paternal Grandfather. Diabetes Mellitus Type II Status:Active Commen ts:Negative Family History Of. Hypertension Status:Active Comments:Sister. Osteoarthritis Status:Active Comments:Materna l Grandmother. Paternal Grandmother. Aunts Uterine Cancer Status:Active Comments:Paterna l Grandmother. Breast cancer Status:Active Comments:Paterna l Grandmother. Cerebrovascular Accident Status:Active Comment s:Negative Family History Of. Colon Cancer Status:Active Comments:Negativ e Family History Of. Coronary Artery Disease Status:Active Comments :Father. Paternal Grandfather. Diabetes Mellitus Type II Status:Active Commen ts:Negative Family History Of. Hypertension Status:Active Comments:Sister. Osteoarthritis Status:Active Comments:Materna l Grandmother. Paternal Grandmother. Aunts Uterine Cancer Status:Active Comments:Paterna l Grandmother. Breast cancer Status:Active Comments:Paterna l Grandmother. Cerebrovascular Accident Status:Active Comment s:Negative Family History Of. Colon Cancer Status:Active Comments:Negativ e Family History Of. Coronary Artery Disease Status:Active Comments :Father. Paternal Grandfather. Diabetes Mellitus Type II Status:Active Commen ts:Negative Family History Of. Hypertension Status:Active Comments:Sister. Osteoarthritis Status:Active Comments:Materna l Grandmother. Paternal Grandmother. Aunts Uterine Cancer Status:Active Comments:Paterna l Grandmother. Breast cancer Status:Active Comments:Paterna l Grandmother. Cerebrovascular Accident Status:Active Comment s:Negative Family History Of. Colon Cancer Status:Active Comments:Negativ e Family History Of. Coronary Artery Disease Status:Active Comments :Father. Paternal Grandfather. Diabetes Mellitus Type II Status:Active Commen ts:Negative Family History Of. Hypertension Status:Active Comments:Sister. Osteoarthritis Status:Active Comments:Materna l Grandmother. Paternal Grandmother. Aunts Uterine Cancer Status:Active Comments:Paterna l Grandmother. Breast cancer Status:Active Comments:Paterna l Grandmother. Cerebrovascular Accident Status:Active Comment s:Negative Family History Of. Colon Cancer Status:Active Comments:Negativ e Family History Of. Coronary Artery Disease Status:Active Comments :Father. Paternal Grandfather. Diabetes Mellitus Type II Status:Active Commen ts:Negative Family History Of. Hypertension Status:Active Comments:Sister. Osteoarthritis Status:Active Comments:Materna l Grandmother. Paternal Grandmother. Aunts Uterine Cancer Status:Active Comments:Paterna l Grandmother. Breast cancer Status:Active Comments:Paterna l Grandmother. Cerebrovascular Accident Status:Active Comment s:Negative Family History Of. Colon Cancer Status:Active Comments:Negativ e Family History Of. Coronary Artery Disease Status:Active Comments :Father. Paternal Grandfather. Diabetes Mellitus Type II Status:Active Commen ts:Negative Family History Of. Hypertension Status:Active Comments:Sister. Osteoarthritis Status:Active Comments:Materna l Grandmother. Paternal Grandmother. Aunts Uterine Cancer Status:Active Comments:Paterna l Grandmother. Breast cancer Status:Active Comments:Paterna l Grandmother. Cerebrovascular Accident Status:Active Comment s:Negative Family History Of. Colon Cancer Status:Active Comments:Negativ e Family History Of. Coronary Artery Disease Status:Active Comments :Father. Paternal Grandfather. Diabetes Mellitus Type II Status:Active Commen ts:Negative Family History Of. Hypertension Status:Active Comments:Sister. Osteoarthritis Status:Active Comments:Materna l Grandmother. Paternal Grandmother. Aunts Uterine Cancer Status:Active Comments:Paterna l Grandmother. Breast cancer Status:Active Comments:Paterna l Grandmother. Cerebrovascular Accident Status:Active Comment s:Negative Family History Of. Colon Cancer Status:Active Comments:Negativ e Family History Of. Coronary Artery Disease Status:Active Comments :Father. Paternal Grandfather. Diabetes Mellitus Type II Status:Active Commen ts:Negative Family History Of. Hypertension Status:Active Comments:Sister. Osteoarthritis Status:Active Comments:Materna l Grandmother. Paternal Grandmother. Aunts Uterine Cancer Status:Active Comments:Paterna l Grandmother. Breast cancer Status:Active Comments:Paterna l Grandmother. Cerebrovascular Accident Status:Active Comment s:Negative Family History Of. Colon Cancer Status:Active Comments:Negativ e Family History Of. Coronary Artery Disease Status:Active Comments :Father. Paternal Grandfather. Diabetes Mellitus Type II Status:Active Commen ts:Negative Family History Of. Hypertension Status:Active Comments:Sister. Osteoarthritis Status:Active Comments:Materna l Grandmother. Paternal Grandmother. Aunts Uterine Cancer Status:Active Comments:Paterna l Grandmother. Summary Purpose Advance Directives No Advanced Directives Records FoundNo Advanced Directives Records FoundNo Advanced Directives Records Found Additional Source Comments Goals (unrecognized section and content) Goals may be documented in a n alternate sectionGoals may be documented in an alternate section INFORMATION SOURCE (unrecogn ized section and content) DATE CREATED AUTHOR 12/17/2024 [facility] DATE CREATED AUTHOR AUTHOR'S ORGANFREYA ATION 12/26/2024 [facility] DATE CREATED AUTHOR AUTHOR'S ORGANIZ ATION 01/18/2025 [facility] FOR RECORDS PERTAINING TO PATIENTS WHO ARE OR HAVE BEEN ENROLLED IN A CHEMICAL DEPENDENCY/SUBSTANCEABUSE PROGRAM, SOME INFORMATION MAY BE OMITTED. This clinical summary was aggregated from multiple sources. Caution should be exercised in using it in the provision of clinical care. This summary normalizes information from multiple sources, and as a consequence, information in this document may materially change the coding, format and clinical context of patient data. In addition, data may be omitted in some cases. CLINICAL DECISIONS SHOULD BE BASED ON THE PRIMARY CLINICAL RECORDS. [facility] [place] [facility]. provides no warranty or guarantee of the accuracy or completeness of information in this document.
== END | disposition home or self-care (01) ==
LOC: CT 06:27
PROVIDERS: PCP Family Medicine; Referring Provider Surgery; Visit Provider Surgery
DX: E01.0 Iodine-deficiency related diffuse (endemic) goiter (principal)
CPT/HCPCS: 70492; Q9967; A4216

== ENCOUNTER → 2025-05-21 | Outpatient (CLI) | payer OTHER, SELFPAY ==
[2025-05-21 15:31] LABS: PTHIN 42 pg/mL (11-61)
[2025-05-21 16:09] LABS: Calcium 8.9 mg/dL (7.6-11.0)
[2025-05-21 16:18] LABS: Vitamin D,25 Hydroxy 16.7 ng/mL (30-100)
== END | disposition home or self-care (01) ==
LOC: MTLAB 11:26
PROVIDERS: PCP Family Medicine
DX: E04.2 Nontoxic multinodular goiter (principal)
CPT/HCPCS: 36415; 82306; 82310; 83970; 84443